=== PATIENT | male | born 1945 | race Caucasian/White ===

== ENCOUNTER 2022-07-05 06:15 | Emergency (ER) | payer OTHER, SELFPAY ==
--- NOTE | ~2022-07-05 | XR_ITS ---
EXAMINATION: XR KNEE, LEFT 2 views CLINICAL INFORMATION: Pain for one month after falling COMPARISON: None available. TECHNIQUE: Two views of the left knee. FINDINGS: No definite evidence for acute bony fracture or dislocation. Chondrocalcinosis noted. Small spurring changes, particularly at the tibial plateau and the patella. There is a calcification adjacent to the superior aspect of the medial femoral condyle which likely reflects an old posttraumatic calcification. No distinct erosive process. XR/XR knee LT 2V IMPRESSION: 1. No definite evidence for acute bony fracture or dislocation. 2. Degenerative changes.
[2022-07-05 07:35] VITALS: BP 150/57; PULSE 66; RESP 14; TEMP 36.8; O2SAT 96; BMI 25.0
--- NOTE | 2022-07-05 08:27 | ED.GENADULT ---
HPI - General Adult General Chief complaint: Extremity Problem Stated complaint: leg pain Time Seen by Provider: 07/05/22 07:59 Source: family Mode of arrival: ambulatory Limitations: no limitations History of Present Illness HPI narrative: History obtained from flight/transport nurse. Patient came from [place] he fell there 4 days ago and hurt his knee. No other injuries. He is able to walk on the knee Onset (ago): day(s) Location: left and lower extremity Severity: mild Quality: aching Pain Consistency: constant Related Data Previous Rx's Medication Instructions Recorded meloxicam 15 mg tablet 15 mg PO DAILY #10 tabs 07/05/22 Allergies Allergy/AdvReac Type Severity Reaction Status Date / Time No Known Allergies Allergy Verified 07/05/22 07:38 Review of Systems Review of Systems: Yes all other systems are reviewed and are negative Musculoskeletal: Comments: left knee PMFSH Social History Social History Advance Directives: No Advance Directives Information Provided: Yes Physical Exam ED Vital Signs: Vital Signs - 24 hr 07/05/22 07:35 Temperature 98.2 F Pulse Rate 66 Respiratory Rate 14 Blood Pressure 150/57 H Pulse Oximetry 96 Oxygen Delivery Method Room Air BMI result Body Mass Index 25.0 Const Other: elderly thin male in no acute distress Nutritional Appearance: thin Orientation/consciousness: oriented to person and patient oriented x3 Limitations: no limitations HENMT Head: Yes normal to inspection Ears: external ears normal General nose exam: Normal external nose present Mouth: Normal oral and palatal mucosa present and oropharynx normal Throat: Yes posterior oropharynx normal Eyes General: appearance normal, both eyes and all related structures Neck Neck: Yes normal visual inspection Chest Chest palpation & inspection: normal inspection of the chest Resp Auscultation: clear to auscultation bilaterally Cardio Jugular venous distension: no JVD Rate: regular rate Rhythm: regular rhythm Heart sounds: S1 normal heart sound present and S2 normal heart sound present GI Inspection: Yes normal to inspection Palpation (GI): Soft to palpation, nontender and No hepatosplenomegaly present Auscultation: normal bowel sounds General: Yes no CVA tenderness Back/Spine/Pelvis Back: no CVA tenderness Skin General skin exam: no rashes or lesions noted Neuro General: oriented to person and patient oriented x3 Cranial nerves: Yes CN's II-XII intact bilaterally Motor exam (neuro): 5/5 motor strength present throughout Extrem Other: left knee, no effusion, no laxity, FROM Psych Appearance: grossly normal Course Reevaluation(s) Reevaluation #1: patient with severe djd no effusion will dc on mobic Time: 09:20 Medical Decision Making Differential Diagnosis Differential Diagnoses: The differential diagnosis associated with the presentation includes (knee fracture, plateau fracture, patella fracture, arthritis, knee strain) Independent Interpretation I performed an independent interpretation of an: Plain X-Ray (severe djd) Discharge Plan Discharge Clinical Impression: Arthritis of knee, Knee strain Patient Disposition: Home, Self-Care Instructions: Arthritis (ED) Prescriptions: New meloxicam 15 mg tablet 15 mg PO DAILY Qty: 10 0RF Referrals: Physician,Unknown J [Primary Care Provider] - 1 week
== END 2022-07-05 09:32 | disposition home or self-care (01) ==
PROVIDERS: Emergency Provider Emergency Medicine
DX: M25.562 Pain in left knee (principal)
CPT/HCPCS: 73560; 99283

== ENCOUNTER 2024-01-21 12:24 | Emergency (ER) | payer OTHER, SELFPAY ==
--- NOTE | 2024-01-21 | ECG_ITS ---
Test Reason : ELEVATED BS Blood Pressure : / mmHG Vent. Rate : 071 BPM Atrial Rate : 071 BPM P-R Int : 138 ms QRS Dur : 122 ms QT Int : 406 ms P-R-T Axes : 038 -34 021 degrees QTc Int : 441 ms Sinus rhythm with Premature atrial complexes Left axis deviation Right bundle branch block Abnormal ECG When compared with ECG of 21-JAN-2024 13:06, No significant changes seen Referred By: Victor Hugo Quinn Electronically Signed By:AMY VALENTINO MD
--- NOTE | 2024-01-21 12:36 | ED_ITS ---
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 Quinn HPI narrative: a 78-year-old male history of dementia speaking and diabetes controlled with metformin 500 mg b.i.d. and Lantus 50 units once a day, patient found to have high blood sugar home, Son also noticed redness and white discoloration on the penis. Patient is agitated and aggressive with his family because being in the hospital which he does not like to be. Related Data Previous Rx's ?Medication ?Instructions ?Recorded meloxicam 15 mg tablet 15 mg PO DAILY #20 tabs 07/05/22 nystatin 100,000 unit/gram topical 1 appl topical QID #30 grams 01/21/24 cream Allergies Allergy/AdvReac Type Severity Reaction Status Date / Time No Known Allergies Allergy Verified 01/21/24 12:42 Review of Systems 2 Review of Systems: All other systems are reviewed and are negative Constitutional: Reports as per HPI and Reports no additional constitutional complaints Eyes: Reports as per HPI and Reports no additional eye complaints Reports system reviewed and no additional complaints, except as documented Cardiovascular: Reports as per HPI and Reports no additional cardiovascular complaints Respiratory: Reports as per HPI and Reports no additional respiratory complaints Gastrointestinal: Reports as per HPI and Reports no additional gastrointestinal complaints Genitourinary: Reports no additional female genitourinary complaints Musculoskeletal: Reports no additional musculoskeletal complaints Skin/Breast: Reports system reviewed and no additional complaints, except as docu Psychiatric: Reports no additional psychiatric complaints Endocrine: Reports no additional endocrine complaints Hematologic/Lymphatic: Reports no additional hematologic/lymphatic complaints Allergic/Immunologic: Reports no additional allergic/immunologic complaints Reports system reviewed and no additional complaints, except as documented and Reports Abnormal speech present [facility] Social History Social History Advance Directives: No Advance Directives Information Provided: No Do you have a plan to hurt others: No Plan Physical Exam ED Vital Signs: Vital Signs - 24 hr 01/21/24 12:38 01/21/24 15:32 Temperature 97.6 F 97.5 F Pulse Rate 67 87 Respiratory Rate 18 18 Blood Pressure 151/60 H 154/77 H Pulse Oximetry 97 96 Oxygen Delivery Method Room Air Room Air BMI result Body Mass Index 24.3 Vital signs have been reviewed and appear to be correct. Blood pressure elevated. Heart rate normal. Respiratory rate normal. Temperature normal. Oxygen saturation normal. Appearance: Alert. Agitated, Demented, disoriented x3 No acute distress. Head: Normal external exam. Normocephalic. Atraumatic. No Mason signs noted. No raccoon eyes noted Eyes: PERRLA. EOMI. Conjunctiva and sclera normal. Eyelids normal. ENT: TM's Normal. Pharynx normal. Uvula midline. Moist mucous membranes. No trismus noted. No drooling noted. No muffled voice noted. Neck: Normal inspection. Neck supple. FROM. No adenopathy. Thyroid Normal. No meningeal signs. No neck mass noted. CVS: Normal heart rate and rhythm. Heart sound normal. No murmurs noted. Pulses normal throughout. Respiratory: No respiratory distress. Painless inspiration. Breath sounds normal. No wheezes/rales/rhonchi noted. Chest nontender. No accessory muscle usage noted or decreased air movement noted. Abdomen: Soft and nontender. Bowel sounds normal in all 4 quadrants. No distention noted. No organomegaly noted. No visible injury noted. : Uncircumcised, redness and white cottage cheese on the foreskin. Back: No CVA tenderness. Full range of motion noted. Skin: Skin warm and dry. Normal skin color. Normal skin turgor. No rashes/lesions/lacerations noted. Extremities: No lower extremity edema. Extremities exhibit normal range of motion. Extremities nontender. Neuro: Cranial nerve exam: II-XII are grossly intact No motor deficit. No sensory deficit. Reflexes normal. Course Course Course Narrative: This is a Rapid Medical Exam performed in triage by Letty Cortez PA-C. Full HPI, ROS and PE to be performed by primary ED provider. 78-year-old male with a past medical history of dementia, DM on Metformin & Lantus, presenting to the ED c/o POC 375 today & concerned patient may have ?UTI or penile infection. Report compliance with patients home meds. Patient just arrived from [place] PE: baseline dementia, nontoxic appearing Plan: EKG, labs, UA, CXR Reevaluation(s) Reevaluation #1: 1. Hyperglycemia improvement after IV fluid and 10 units of insulin. family was instructed to increase metformin to a 1000 mg b.i.d. instead of 500 mg b.i.d. 2. Dementia with chronic behavior disturbance that required IV Ativan in the emergency department. Patient stated that when he goes home his behavior is much better. 3. Balanitis will start nystatin cream. 4. Hyponatremia likely secondary to hyperglycemia improved after fluids and insulin. Time: 16:00 Medications Administered Discontinued Medications Generic Name Dose Route Start Last Admin Trade Name Freq PRN Reason Stop Dose Admin Diphenhydramine HCl 25 mg 01/21/24 13:40 01/21/24 13:45 Diphenhydramine Hcl 50 Mg/Ml Vial IVPUSH 01/21/24 13:41 25 mg ONCE ONE Administration Sodium Chloride 1,000 mls @ 999 mls/hr 01/21/24 13:22 01/21/24 16:04 Ns IV 01/21/24 14:22 Infused .Q1H1M ONE Infusion Insulin Human Regular 10 unit 01/21/24 13:39 01/21/24 13:46 Insulin Regular, Human 100 Unit/Ml 10 Ml Vial IVPUSH 01/21/24 13:40 10 unit ONCE ONE Administration Lorazepam 2 mg 01/21/24 14:12 01/21/24 14:18 Lorazepam 2 Mg/Ml Vial IVPUSH 01/21/24 14:13 2 mg ONCE ONE Administration Lorazepam 1 mg 01/21/24 15:27 01/21/24 15:32 Lorazepam 2 Mg/Ml Vial IVPUSH 01/21/24 15:28 1 mg ONCE ONE Administration Medical Decision Making Differential Diagnosis Differential Diagnoses: The differential diagnosis associated with the presentation includes ( DKA, diabetic hyperglycemia, dementia, electrolyte disturbance, severe anemia, UTI, balanitis.) Admission/Observation Consideration of admission/observation: Escalation of care including admission/observation considered Lab Data MDM Lab Attestation statement: I reviewed the patient's lab results. 01/21/24 13:23 01/21/24 13:23 Labs: Lab Results 01/21/24 01/21/24 01/21/24 Range/Units 13:23 13:26 13:43 WBC 7.6 (4.8-10.8) X10*3/uL RBC 4.75 (4.60-5.80) X10*6/uL Hgb 14.5 (14.0-18.0) g/dl Hct 42.1 (42.0-52.0) % MCV 88.6 (80.0-98.0) fL MCH 30.5 (27.0-33.0) pg MCHC 34.4 (31.0-36.0) g/dl RDW 12.2 (11.0-16.0) % Plt Count 198 (160-400) X10*3/uL MPV 11.3 (9.4-12.4) fL Immature Gran % (Auto) 0.1 (0.0-0.4) % Neut % (Auto) 61.3 (45-73) % Lymph % (Auto) 29.0 (20-40) % [place] % (Auto) 7.7 (2-11) % Eos % (Auto) 1.4 (0-4) % Baso % (Auto) 0.5 (0-2) % Lymph # (Auto) 2.2 (1.2-4.9) X10*3/uL [place] # (Auto) 0.6 (0.1-1.2) X10*3/uL Eos # (Auto) 0.1 (0.0-0.4) X10*3/uL Baso # (Auto) 0.0 (0.0-0.2) X10*3/uL Abs Immat Gran (auto) 0.01 (0.00-0.03) X10*3/uL Absolute Neuts (auto) 4.7 (2.0-8.3) x10*3/uL Absolute Nucleated RBC 0.000 (0.0-0.012) X10*3/uL Nucleated RBC % (auto) 0.0 (0.0-0.2) /100WBC VBG pH 7.43 (7.32-7.43) VBG pCO2 39 mmHg VBG pO2 59 mmHg VBG HCO3 26 (22-26) mmol/L VBG O2 Saturation 87.0 % VBG Base Excess 2.2 mmol/L Sodium 128 L (135-145) mmol/L Potassium 4.7 (3.3-5.1) mmol/L Chloride 94 L (96-108) mmol/L Carbon Dioxide 23 (22-29) mmol/L Anion Gap 16 (12-20) BUN 15 (9-16) mg/dL Creatinine 1.57 H (0.5-1.4) mg/dL Estim Creat Clear Calc 30.7 Estimated GFR 43 POC Glucose > 600 H* (60-115) mg/dL Random Glucose 741 H* (60-115) mg/dL Calcium 9.0 (8.4-10.2) mg/dL Magnesium 1.7 (1.6-2.6) mg/dL Total Bilirubin 1.8 H (0.0-1.0) mg/dL Direct Bilirubin 0.4 (0.0-0.5) mg/dL AST 18 (5-37) U/L ALT 21 (0-40) U/L Alkaline Phosphatase 120 H (39-117) U/L Total Protein 6.0 L (6.5-8.0) g/dL Albumin 3.6 (3.5-5.0) g/dL Beta-Hydroxybutyrate 0.10 (0.02-0.27) mmol/L Urine Color Yellow Urine Appearance Clear Urine pH 5.0 (5.0-9.0) Ur Specific [place] >= 1.030 H (1.005-1.025) Urine Protein Negative (Neg-Trace) mg/dL Urine Glucose (UA) >=1000 H (Negative) mg/dL Urine Ketones Negative (Negative) mg/dL Urine Blood Negative (Negative) Urine Nitrite Negative (Negative) Ur Leukocyte Esterase Small (1+) H (Negative) Urine RBC 0-2 (0-2) /HPF Urine WBC 6-10 (0-5) /HPF Ur Squamous Epith Cells 0-2 (0-2) /HPF Urine Bacteria None Seen (None Seen) Hyaline Casts 0-2 (0-2) /LPF Urine Yeast Present Influenza Type A (PCR) NEGATIVE (Negative) Influenza Type B (PCR) NEGATIVE (Negative) RSV RNA Qual (PCR) NEGATIVE (Negative) SARS-CoV-2 RNA (RT-PCR) NEGATIVE (Negative) 01/21/24 01/21/24 01/21/24 Range/Units 14:57 15:23 15:44 WBC (4.8-10.8) X10*3/uL RBC (4.60-5.80) X10*6/uL Hgb (14.0-18.0) g/dl Hct (42.0-52.0) % MCV (80.0-98.0) fL MCH (27.0-33.0) pg MCHC (31.0-36.0) g/dl RDW (11.0-16.0) % Plt Count (160-400) X10*3/uL MPV (9.4-12.4) fL Immature Gran % (Auto) (0.0-0.4) % Neut % (Auto) (45-73) % Lymph % (Auto) (20-40) % [place] % (Auto) (2-11) % Eos % (Auto) (0-4) % Baso % (Auto) (0-2) % Lymph # (Auto) (1.2-4.9) X10*3/uL [place] # (Auto) (0.1-1.2) X10*3/uL Eos # (Auto) (0.0-0.4) X10*3/uL Baso # (Auto) (0.0-0.2) X10*3/uL Abs Immat Gran (auto) (0.00-0.03) X10*3/uL Absolute Neuts (auto) (2.0-8.3) x10*3/uL Absolute Nucleated RBC (0.0-0.012) X10*3/uL Nucleated RBC % (auto) (0.0-0.2) /100WBC VBG pH (7.32-7.43) VBG pCO2 mmHg VBG pO2 mmHg VBG HCO3 (22-26) mmol/L VBG O2 Saturation % VBG Base Excess mmol/L Sodium (135-145) mmol/L Potassium (3.3-5.1) mmol/L Chloride (96-108) mmol/L Carbon Dioxide (22-29) mmol/L Anion Gap (12-20) BUN (9-16) mg/dL Creatinine (0.5-1.4) mg/dL Estim Creat Clear Calc Estimated GFR POC Glucose 368 H* 318 H 278 H (60-115) mg/dL Random Glucose (60-115) mg/dL Calcium (8.4-10.2) mg/dL Magnesium (1.6-2.6) mg/dL Total Bilirubin (0.0-1.0) mg/dL Direct Bilirubin (0.0-0.5) mg/dL AST (5-37) U/L ALT (0-40) U/L Alkaline Phosphatase (39-117) U/L Total Protein (6.5-8.0) g/dL Albumin (3.5-5.0) g/dL Beta-Hydroxybutyrate (0.02-0.27) mmol/L Urine Color Urine Appearance Urine pH (5.0-9.0) Ur Specific [place] (1.005-1.025) Urine Protein (Neg-Trace) mg/dL Urine Glucose (UA) (Negative) mg/dL Urine Ketones (Negative) mg/dL Urine Blood (Negative) Urine Nitrite (Negative) Ur Leukocyte Esterase (Negative) Urine RBC (0-2) /HPF Urine WBC (0-5) /HPF Ur Squamous Epith Cells (0-2) /HPF Urine Bacteria (None Seen) Hyaline Casts (0-2) /LPF Urine Yeast Influenza Type A (PCR) (Negative) Influenza Type B (PCR) (Negative) RSV RNA Qual (PCR) (Negative) SARS-CoV-2 RNA (RT-PCR) (Negative) Discharge Plan Discharge Clinical Impression: Acute hyperglycemia, Balanitis Patient Disposition: Home, Self-Care Instructions: Balanitis (ED), Diabetic Hyperglycemia (ED) Prescriptions: New nystatin 100,000 unit/gram cream 1 appl topical QID Qty: 30 0RF No Action meloxicam 15 mg tablet 15 mg PO DAILY Qty: 20 0RF Print Language: Chinese
--- NOTE | 2024-01-21 12:37 | ECG_ITS ---
Test Reason : ELEVATED BS Blood Pressure : / mmHG Vent. Rate : 079 BPM Atrial Rate : 079 BPM P-R Int : 120 ms QRS Dur : 118 ms QT Int : 402 ms P-R-T Axes : 046 -39 027 degrees QTc Int : 460 ms Sinus rhythm with Premature atrial complexes Left axis deviation Right bundle branch block Abnormal ECG No previous ECGs available Referred By: Letty Cortez Electronically Signed By:AMY VALENTINO MD
[2024-01-21 12:38] VITALS: BP 151/60; PULSE 67; RESP 18; TEMP 36.4; O2SAT 97; BMI 24.3
--- NOTE | 2024-01-21 13:19 | MHC.EDTECH ---
EKGs wear took twice as DR. Quinn verbally order it, and read by him. Patient rest in his bed within call ramachandran in his reach.
[2024-01-21 13:26] LABS: MANUAL DIFF FLAG NO
[2024-01-21 13:28] LABS: Basophils Percent Auto 0.5 % (0-2); Eosinophils Absolute Auto 0.1 X10*3/uL (0.0-0.4); Eosinophils Percent Auto 1.4 % (0-4); Hematocrit 42.1 % (42.0-52.0); Hemoglobin 14.5 g/dl (14.0-18.0); Imm Gran Abs Auto 0.01 X10*3/uL (0.00-0.03); Imm Gran Pct Auto 0.1 % (0.0-0.4); Lymphocytes Absolute Auto 2.2 X10*3/uL (1.2-4.9); Mean Corpuscular HGB Conc 34.4 g/dl (31.0-36.0); Mean Corpuscular Hemoglobin 30.5 pg (27.0-33.0); Mean Corpuscular Volume 88.6 fL (80.0-98.0); Mean Platelet Volume 11.3 fL (9.4-12.4); Monocytes Absolute Auto 0.6 X10*3/uL (0.1-1.2); Monocytes Percent Auto 7.7 % (2-11); Neutrophils Absolute Auto 4.7 x10*3/uL (2.0-8.3); Neutrophils Percent Auto 61.3 % (45-73); Platelet Count 198 X10*3/uL (160-400); Red Blood Count 4.75 X10*6/uL (4.60-5.80); Red Cell Distribution Width 12.2 % (11.0-16.0); White Blood Count 7.6 X10*3/uL (4.8-10.8)
[2024-01-21 13:30] LABS: VBG Base Excess 2.2 mmol/L; VBG HCO3 26 mmol/L (22-26); VBG pCO2 39 mmHg; VBG pH 7.43 (7.32-7.43); VBG pO2 59 mmHg
[2024-01-21 13:30] LABS: Venous Blood Gas Refer to POC result
[2024-01-21 13:33] LABS: Glucose, Whole Blood > 600 mg/dL (60-115)
[2024-01-21] MEDS: diphenhydrAMINE HCL 50 MG/ML VIAL 25 MG IVPUSH (13:45)
[2024-01-21] MEDS: Insulin Regular, Human 100 UNIT/ML 10 ML VIAL 10 UNIT IVPUSH (13:46)
[2024-01-21] MEDS: 0.9 % Sodium Chloride 1,000 ML 999 ML IV (13:47)
[2024-01-21 13:51] LABS: Appearance Urine Clear; Color Urine Yellow; Glucose Urine UA >=1000 mg/dL (Negative); Leukocyte Esterase Urine Small (1+) (Negative); Nitrite Urine Negative (Negative); Specific Gravity - Urine >= 1.030 (1.005-1.025); UMIC TRIGGER UACC YES; Urine Blood Negative (Negative); Urine Ketones Negative (Negative); Urine Protein Negative (Neg-Trace)
[2024-01-21 13:52] LABS: Alanine Aminotransferase 21 U/L (0-40); Albumin Level 3.6 g/dL (3.5-5.0); Alkaline Phosphatase 120 U/L (39-117); Anion Gap 16 (12-20); Aspartate Amino Transferase 18 U/L (5-37); Bilirubin Direct 0.4 mg/dL (0.0-0.5); Bilirubin Total 1.8 mg/dL (0.0-1.0); Blood Urea Nitrogen 15 mg/dL (9-16); Carbon Dioxide 23 mmol/L (22-29); Chloride 94 mmol/L (96-108); Creatinine Clr Calc Pharmacy 30.7; Estimated Glomerular Filt Rate 43; Magnesium 1.7 mg/dL (1.6-2.6); Potassium 4.7 mmol/L (3.3-5.1); Sodium 128 mmol/L (135-145)
[2024-01-21 14:03] LABS: Glucose Random 741 mg/dL (60-115)
[2024-01-21 14:04] LABS: Bacteria Urine None Seen (None Seen); Hyaline Casts Urine 0-2 /LPF (0-2); RBC Urine 0-2 /HPF (0-2); Squamous Epithelial Cell Urine 0-2 /HPF (0-2); UACC Culture Trigger YES
[2024-01-21 14:18] LABS: Influenza A PCR NEGATIVE (Negative); Influenza B PCR NEGATIVE (Negative); Resp Syncy Virus RNA Qual PCR NEGATIVE (Negative); SARS COV2 PCR INHOUSE NEGATIVE (Negative)
[2024-01-21] MEDS: LORazepam 2 MG/ML VIAL IVPUSH (14:18)
--- NOTE | 2024-01-21 14:24 | PC.NURSE ---
POC read high x2, IV established. medicated per the MAR. patient agitated with family at the bedside, medicated with 2mg IV ativan, pending results. unable to place patient on monitor/change into hospital attire at this time d/t attempts at pulling at IV. ambulates with family w/out devices.
[2024-01-21 15:01] LABS: Glucose, Whole Blood 368 mg/dL (60-115)
--- NOTE | 2024-01-21 15:14 | PC.NURSE ---
repeat POC obtained, patient appears less agitated at this time, resting quietly in the bed. fluids continue to infuse at this time. call ramachandran within reach.
[2024-01-21 15:32] VITALS: BP 154/77; PULSE 87; RESP 18; TEMP 36.4; O2SAT 96
[2024-01-21] MEDS: LORazepam 2 MG/ML VIAL 1 MG IVPUSH (15:32)
[2024-01-21 15:48] LABS: Glucose, Whole Blood 318 mg/dL (60-115)
[2024-01-21 15:48] LABS: Glucose, Whole Blood 278 mg/dL (60-115)
[2024-01-21 16:36] LABS: Anion Gap 15 (12-20); Blood Urea Nitrogen 14 mg/dL (9-16); Calcium 8.9 mg/dL (8.4-10.2); Carbon Dioxide 20 mmol/L (22-29); Chloride 104 mmol/L (96-108); Creatinine Clr Calc Pharmacy 37.9; Estimated Glomerular Filt Rate 55; Glucose Random 309 mg/dL (60-115); Potassium 3.9 mmol/L (3.3-5.1); Sodium 135 mmol/L (135-145)
[2024-01-21 16:53] VITALS: BP 154/77; PULSE 87; RESP 18; TEMP 36.4; O2SAT 96
== END 2024-01-21 16:54 | disposition home or self-care (01) ==
PROVIDERS: Physician Assistant; Emergency Provider Emergency Medicine
DX: E11.65 Type 2 diabetes mellitus with hyperglycemia (principal); N48.1 Balanitis; R45.1 Restlessness and agitation; I45.10 Unspecified right bundle-branch block; Z03.818 Encounter for observation for suspected exposure to other biological agents ruled out; F03.90 Unspecified dementia, unspecified severity, without behavioral disturbance, psychotic disturbance, mood disturbance, and anxiety; Z79.84 Long term (current) use of oral hypoglycemic drugs; Z79.4 Long term (current) use of insulin
CPT/HCPCS: 0241U; 36415; 80048; 80076; 81001; 82010; 82803; 82947; 83735; 85025; 87086; 93005; 96361; 96374; 96375; 96376; 99284; 99285; J1200; J2060

== ENCOUNTER → 2024-01-21 12:37 | Outpatient (BNV) | payer OTHER, SELFPAY | PROVIDERS: Emergency Provider Emergency Medicine; Visit Provider Internal Medicine Cardiovascular Disease | DX: R94.31 Abnormal electrocardiogram [ECG] [EKG] (principal); I49.1 Atrial premature depolarization; I45.10 Unspecified right bundle-branch block | CPT/HCPCS: 93010 ==

== ENCOUNTER 2024-10-05 13:50 | Emergency (ER) | payer MEDICAID, SELFPAY ==
--- NOTE | ~2024-10-05 | US_ITS ---
EXAMINATION: US SCROTUM CLINICAL INFORMATION: Swelling and pain left testicle. COMPARISON: None available. TECHNIQUE: A sonogram of the scrotum was performed assessing donaldson-scale appearance and color Doppler flow. Spectral Doppler analysis of the arterial and venous flow were performed in the testes bilaterally. FINDINGS: RIGHT: Right testicle measures 3.6 x 2.2 x 2.8 cm, volume 11.9 mL. No focal testicular parenchymal lesions are visualized. Spectral Doppler analysis of the arterial and venous flow is normal in the right testis. Right epididymal head is normal in size. No varicocele is present. There is a moderate right hydrocele. Right epididymal Doppler flow is normal. LEFT: Left testicle measures 4.1 x 2.9 x 2.8 cm, volume 17.4 mL. No focal testicular parenchymal lesions are visualized. Spectral Doppler analysis of the arterial and venous flow is decreased in the left testis. There are however detectable venous and arterial waveforms present, essentially ruling out torsion. Left epididymal head is normal in size. Varicocele is present. There is a moderate left hydrocele. Left epididymal Doppler flow is normal. US/US scrotum IMPRESSION: 1. Moderate bilateral hydroceles present, with a small amount of internal floating specular debris. 2. Normal epididymis bilaterally. 3. Normal testicles bilaterally. There is mild perceived decreased flow to the left testicle although there are both arterial and venous waveforms present essentially excluding a testicular torsion. The testicles are also symmetric in echogenicity.] Based on this exam, the cause of left testicular pain is not clear. Electronically signed by: Linus Ybarra MD 10/05/2024 04:39 PM EDT
--- NOTE | ~2024-10-05 | US_ITS ---
EXAMINATION: US SCROTUM CLINICAL INFORMATION: Swelling and pain left testicle. COMPARISON: None available. TECHNIQUE: A sonogram of the scrotum was performed assessing donaldson-scale appearance and color Doppler flow. Spectral Doppler analysis of the arterial and venous flow were performed in the testes bilaterally. FINDINGS: RIGHT: Right testicle measures 3.6 x 2.2 x 2.8 cm, volume 11.9 mL. No focal testicular parenchymal lesions are visualized. Spectral Doppler analysis of the arterial and venous flow is normal in the right testis. Right epididymal head is normal in size. No varicocele is present. There is a moderate right hydrocele. Right epididymal Doppler flow is normal. LEFT: Left testicle measures 4.1 x 2.9 x 2.8 cm, volume 17.4 mL. No focal testicular parenchymal lesions are visualized. Spectral Doppler analysis of the arterial and venous flow is decreased in the left testis. There are however detectable venous and arterial waveforms present, essentially ruling out torsion. Left epididymal head is normal in size. Varicocele is present. There is a moderate left hydrocele. Left epididymal Doppler flow is normal. US/US scrotum doppler IMPRESSION: 1. Moderate bilateral hydroceles present, with a small amount of internal floating specular debris. 2. Normal epididymis bilaterally. 3. Normal testicles bilaterally. There is mild perceived decreased flow to the left testicle although there are both arterial and venous waveforms present essentially excluding a testicular torsion. The testicles are also symmetric in echogenicity.] Based on this exam, the cause of left testicular pain is not clear. Electronically signed by: Linus Ybarra MD 10/05/2024 04:39 PM EDT
[2024-10-05 14:14] VITALS: BP 116/58; PULSE 76; RESP 18; TEMP 36.9; O2SAT 97; BMI 23.2
--- NOTE | 2024-10-05 14:17 | ED_ITS ---
HPI - General Adult General Chief complaint: Urogenital-Male Stated complaint: Infection Private Area Weak Related Data Previous Rx's ?Medication ?Instructions ?Recorded meloxicam 15 mg tablet 15 mg PO DAILY #20 tabs 0 10/20 nystatin 100,000 unit/gram topical 1 appl topical QID #30 grams 01/21/24 cream Allergies Allergy/AdvReac Type Severity Reaction Status Date / Time No Known Allergies Allergy Verified 10/05/24 14:19 Physical Exam ED Vital Signs: Vital Signs - 24 hr 10/05/24 14:14 Temperature 98.5 F Pulse Rate 76 Respiratory Rate 18 Blood Pressure 116/58 L Pulse Oximetry 97 Oxygen Delivery Method Room Air BMI result Body Mass Index 23.2 Course Course Course Narrative: RME performed by Taylor Martin PA-C. Patient is a 78 year old assigned male at presenting to the emergency department with scrotal swelling and painful urination concerning for infection. Patient states he has been in the [place] and is having scrotal swelling and painful urination. Detailed physical exam and review of systems are deferred to the research chief engineer. Labs and imaging ordered. Patient placed back in the waiting room pending room availability and results. Patient left the department without completing treatment. Patient's limited physical exam performed in triage was unremarkable, not in acute distress. Medical Decision Making Lab Data 10/05/24 14:31 10/05/24 14:31 Labs: Lab Results 10/05/24 Range/Units 14:31 WBC 7.7 (4.8-10.8) X10*3/uL RBC 5.31 (4.60-5.80) X10*6/uL Hgb 15.9 (14.0-18.0) g/dl Hct 45.7 (42.0-52.0) % MCV 86.1 (80.0-98.0) fL MCH 29.9 (27.0-33.0) pg MCHC 34.8 (31.0-36.0) g/dl RDW 12.7 (11.0-16.0) % Plt Count 193 (160-400) X10*3/uL MPV 11.2 (9.4-12.4) fL Immature Gran % (Auto) 0.4 (0.0-0.4) % Neut % (Auto) 72.9 (45-73) % Lymph % (Auto) 13.6 L (20-40) % [place] % (Auto) 12.3 H (2-11) % Eos % (Auto) 0.4 (0-4) % Baso % (Auto) 0.4 (0-2) % Lymph # (Auto) 1.0 L (1.2-4.9) X10*3/uL [place] # (Auto) 0.9 (0.1-1.2) X10*3/uL Eos # (Auto) 0.0 (0.0-0.4) X10*3/uL Baso # (Auto) 0.0 (0.0-0.2) X10*3/uL Abs Immat Gran (auto) 0.03 (0.00-0.03) X10*3/uL Absolute Neuts (auto) 5.6 (2.0-8.3) x10*3/uL Absolute Nucleated RBC 0.000 (0.0-0.012) X10*3/uL Nucleated RBC % (auto) 0.0 (0.0-0.2) /100WBC ESR 12 (0-15) MM/HR Sodium 141 (135-145) mmol/L Potassium 4.0 (3.3-5.1) mmol/L Chloride 104 (96-108) mmol/L Carbon Dioxide 28 (22-29) mmol/L Anion Gap 13 (12-20) BUN 19 H (9-16) mg/dL Creatinine 1.31 (0.5-1.4) mg/dL Estim Creat Clear Calc 36.7 Estimated GFR 53 Random Glucose 118 H (60-115) mg/dL Calcium 9.6 D (8.4-10.2) mg/dL Magnesium 1.8 (1.6-2.6) mg/dL Total Bilirubin 2.5 H (0.0-1.0) mg/dL AST 27 (5-37) U/L ALT 19 (0-40) U/L Alkaline Phosphatase 108 (39-117) U/L C-Reactive Protein 0.53 H (< or = 0.50) mg/dL Total Protein 7.3 (6.5-8.0) g/dL Albumin 4.6 (3.5-5.0) g/dL Discharge Plan Discharge Clinical Impression: Acute pain in scrotum Patient Disposition: Left W/O Completing Treatment Prescriptions: No Action nystatin 100,000 unit/gram cream 1 appl topical QID Qty: 30 0RF meloxicam 15 mg tablet 15 mg PO DAILY Qty: 20 0RF
[2024-10-05 14:34] LABS: MANUAL DIFF FLAG NO
[2024-10-05 14:36] LABS: Hematocrit 45.7 % (42.0-52.0); Hemoglobin 15.9 g/dl (14.0-18.0); Imm Gran Abs Auto 0.03 X10*3/uL (0.00-0.03); Imm Gran Pct Auto 0.4 % (0.0-0.4); Lymphocytes Absolute Auto 1.0 X10*3/uL (1.2-4.9); Mean Corpuscular HGB Conc 34.8 g/dl (31.0-36.0); Mean Corpuscular Hemoglobin 29.9 pg (27.0-33.0); Mean Corpuscular Volume 86.1 fL (80.0-98.0); NRBC Abs Auto 0.000 X10*3/uL (0.0-0.012); NRBC Pct Auto 0.0 /100WBC (0.0-0.2); Platelet Count 193 X10*3/uL (160-400); Red Blood Count 5.31 X10*6/uL (4.60-5.80); White Blood Count 7.7 X10*3/uL (4.8-10.8)
[2024-10-05 14:56] LABS: Alanine Aminotransferase 19 U/L (0-40); Albumin Level 4.6 g/dL (3.5-5.0); Alkaline Phosphatase 108 U/L (39-117); Anion Gap 13 (12-20); Aspartate Amino Transferase 27 U/L (5-37); Blood Urea Nitrogen 19 mg/dL (9-16); Calcium 9.6 mg/dL (8.4-10.2); Carbon Dioxide 28 mmol/L (22-29); Chloride 104 mmol/L (96-108); Creatinine Clr Calc Pharmacy 36.7; Estimated Glomerular Filt Rate 53; Magnesium 1.8 mg/dL (1.6-2.6); Potassium 4.0 mmol/L (3.3-5.1); Sodium 141 mmol/L (135-145); Total Protein 7.3 g/dL (6.5-8.0)
== END 2024-10-05 21:09 | disposition left against medical advice (07) ==
LOC: HO.ED 21:07
PROVIDERS: Physician Assistant Medical; Emergency Provider Emergency Medicine
DX: N50.812 Left testicular pain (principal); R30.9 Painful micturition, unspecified
CPT/HCPCS: 36415; 76870; 80053; 83735; 85025; 85652; 86140; 93975; 99281; 99284

== ENCOUNTER → 2024-10-05 14:18 | Outpatient (BNV) | payer MEDICAID, SELFPAY | PROVIDERS: Visit Provider Radiology Diagnostic Radiology | DX: N43.3 Hydrocele, unspecified (principal) | CPT/HCPCS: 76870; 93975 ==

== ENCOUNTER 2024-10-22 11:39 | Outpatient (AMB) | payer MEDICARE, MEDICAID, SELFPAY ==
[2024-10-22 11:43] VITALS: BP 132/60; PULSE 88; TEMP 36.8; O2SAT 97
--- NOTE | 2024-10-22 11:43 | MHC.OFFWIV ---
Intake Vital Signs 10/22/24 11:43 Height 5 ft 3 in BP 132/60 Blood Pressure Location Lt brachial Position Sitting Pulse 88 Pulse Source Pulse Oximeter Temp 98.2 F Temp Source Oral Pulse Oximetry (%) 97 Oxygen Delivery Method Room Air Intake Visit Reasons: [employer]-rt side head cut from a fall Intake Note: Pt presents with an open wound on right eyebrow from falling today Allergies No Known Allergies Allergy (Verified 10/22/24 11:43) Do you need a note to return to daycare/school/sports/work: No HPI HPI Comments History of Present Illness Details History of Present Illness - The patient is a 78-year-old [place] speaking male presenting with his caregivers for a fall at home. - His caregivers are giving the history. - The fall occurred inside the house while the patient was attempting to climb the stairs from the basement. - The patient did not lose consciousness and was able to communicate after the fall. - The patient reports pain at the site of impact, but no other injuries were noted. - The patient has a history of dementia, which may impact his ability to follow instructions or recall events accurately. - He has a laceration above the right eye and he was bleeding. Physical Exam General: Cooperative, healthy appearing, comfortable, no acute distress and well developed Orientation: Patient oriented x3 Limitations: Dementia Head: Bruise noted on the right cheek under the eye. Face and sinus: Normal facial exam Eyes: Appearance normal, both eyes and all related structures Respiratory: Normal respiratory effort and able to speak in complete sentences. Clear to auscultation bilaterally Cardiovascular: Regular rate and rhythm. Normal S1 and S2 Skin: 2cm laceration noted open and bleeding on the right eyebrow. Deep lacertation, also a skin tear noted. Neuro: Patient oriented, has dementia and [place] speaking Extremities: Normal to inspection Patient was informed and verbally consented to the use of an ambient scribe for clinic note documentation during this visit. Review of Systems Const All systems reviewed & are unremarkable except as noted in HPI and below Physical Exam Vital Signs: Last Vital Signs Temp 98.2 F 10/22/24 11:43 Pulse 88 10/22/24 11:43 BP 132/60 10/22/24 11:43 Pulse Ox 97 10/22/24 11:43 Oxygen Delivery Method Room Air 10/22/24 11:43 Office Procedures AMB Laceration Repair Location: right eyebrow Length: 2cm Sedation: No Anesthesia: 1% lidocaine Irrigation: saline Preparation: betadine Wound exploration: none Deep closure: No Skin closure: nylon Technique: Wound closed with #8 ethilon sutures 5-0 Topical treatment: triple antibiotic Tetanus toxoid ordered: No Patient tolerated procedure: with [place] [id number] Repair 2.6-7.5cm Procedure code (CPT) selection complete Office Meds lidocaine (PF) 10 mg/mL (1 %) injection solution Performing Provider: Ofe Garcia PA-C Performing Location: [facility] [place] [facility] Administered by: Ofe Garcia PA-C on 10/22/24 13:24 Dose Route Admin Location Dispensed Lot Number Expiration Date [facility] [place]NOTE 2] Machine Lacer 2 mL Infiltration face 2 mL [id number] 02/27/25 15040-775-73 [employer] Total Dispensed Waste 2 mL 0 % Assessment & Plan Assessment & Plan (1) Eyebrow laceration: Code(s): S01.119A - Laceration without foreign body of unspecified eyelid and periocular area, initial encounter Qualifiers: Encounter type: initial encounter Laterality: right Qualified Code(s): S01.111A - Laceration without foreign body of right eyelid and periocular area, initial encounter (2) Fall: Code(s): W19.XXXA - Unspecified fall, initial encounter Qualifiers: Encounter type: initial encounter Qualified Code(s): W19.XXXA - Unspecified fall, initial encounter Plan Most likely laceration s/p fall plan - keep area clean and dry - tylenol as needed - ice to the face - have the sutures removed in 7-10 days - watch for signs of infection - advised the ER for changes in his mentation, swelling, MILLER, combative, etc - follow up with PCP Orders: Orders AMB Laceration Repair Today S01.81XA - Laceration without foreign body of other part of head, initial encounter Medications: Discontinued nystatin Discontinued Reason: Patient Completed Course 1 appl topical QID 30 grams 0RF meloxicam Discontinued Reason: Patient Completed Course 15 mg PO DAILY 20 tabs 0RF Coding Level of Care Code Est Pt Level 4 (67147) Diagnoses Laceration of right eyebrow, initial encounter S01.111A Encounter type: initial encounter Laterality: right Fall, initial encounter W19.XXXA Encounter type: initial encounter CPT Codes Office Procedure - Laceration Repair 2: [id number] Repair 2.6-7.5cm ([id number])
--- OUTSIDE RECORDS SUMMARY | 2024-10-22 13:11 | XMS_ITS | Clinical Summary ---
Author Organization [facility] Address [address] [place] [address] Phone Care Team Providers Care Radiology Physician Name Role Phone Physician, No Pcp Primary Care Provider Unavaila ble Allergies No known active allergies Medications bacitracin (bacitracin zinc) 500 unit/gram ointment Apply 1 Application topically 2 (two) times a day for 10 days. 45 g 5 10/27/19 25 Active clotrimazole (LOTRIMIN) 1 % cream Apply to affected area 2 times daily 45 g 5 10/28/19 25 Active cefuroxime (CEFTIN) 500 mg tablet Take 1 tablet (500 mg total) by mouth 2 (two) times a day for 10 days. 20 each 5 10/27/19 25 Active traZODone (DESYREL) 50 mg tablet Take 1 tablet (50 mg total) by mouth at bedtime. 30 each 5 11/16/19 25 Active Active Problems No known active problems Encounters Date Type Department Care Team Description 10/15/2024 9:13 PM EDT - 10/16/2024 3:09 AM EDT Emergency [facility] Emergency [address] [place] [address] Kenton Ortiz MD Acute cystitis without hematuria (Primary Dx); Balanitis; Controlled type 2 diabetes mellitus with hyperglycemia, with long-term current use of insulin ([facility] V24, [facility] V28) Discharge Disposition: Home or Self Care from Last 3 Months Social History Tobacco Use Types Packs/Day Years Used Date Smoking Tobacco: Never Assessed Sex and Gender Information Value Date Recorded Sex Assigned at Not on file Legal Sex Male 5:41 PM EDT Gender Identity Not on file Sexual Orientation Not on file Travel History Travel Start Travel End [place] 09/09/2024 10/15/2024 Obstetrics History Last Filed Vital Signs Vital Sign Reading Time Taken Comments Blood Pressure 119/94 10/15/2024 5:56 PM EDT Pulse 69 10/15/2024 9:00 PM EDT Temperature 36.2 C (97.1 F) 10/15/2024 9:00 PM EDT Respiratory Rate 18 10/15/2024 9:00 PM EDT Oxygen Saturation 98% 10/15/2024 9:00 PM EDT Inhaled Oxygen Concentration - - Weight 59 kg (130 lb) 10/15/2024 5:56 PM EDT Height 160 cm (5' 3 ) 10/15/2024 5:56 PM EDT Body Mass Index 23.03 10/15/2024 5:56 PM EDT Plan of Treatment Health Maintenance Due Date Last Done Comments Diabetes: Annual Foot Exam 1955 Diabetes: Annual Retina Eye Exam 1955 DTaP,Tdap,and Td Vaccines (1 - Tdap) 12/08/1963 Pneumococcal Vaccine: 50+ Ye ars (1 of 2 - PCV) 12/08/1963 Zoster Vaccines (1 of 2) 1994 RSV Immunization Adult Patie nts (1 - 1-dose 75+ series) 12/08/2019 COVID-19 Vaccine ( - 2023-2 5 season) 2023 Depression Screening 02/29/2024 Cholesterol Screening (Lipid Panel) 10/15/2024 Falls Risk Assessment 10/15/2024 Hepatitis C Screening 10/15/2024 Medicare Annual Wellness Visit 10/15/2024 Social Influencers of Health Screening 10/15/2024 Diabetes: Annual Urine Albumin-Creatinine Ratio (uACR) 10/16/2024 Diabetes: Blood Sugar Contro l Test (HGBA1C) 10/16/2024 Influenza Vaccine (#1) 2024 Diabetes: Annual GFR (Glomer ular Filtration Rate) 10/15/2025 10/15/2024 HIB Vaccines Aged Out No longer eligi ble based on patient's age to complete this topic HPV Vaccines Aged Out No longer eligi ble based on patient's age to complete this topic Hepatitis A Vaccines Aged Out No long er eligible based on patient's age to complete this topic Hepatitis B Vaccines Aged Out No long er eligible based on patient's age to complete this topic IPV Vaccines Aged Out No longer eligi ble based on patient's age to complete this topic MMR Vaccines Aged Out No longer eligi ble based on patient's age to complete this topic Meningococcal ACWY Vaccine Aged Out N o longer eligible based on patient's age to complete this topic Meningococcal B Vaccine Aged Out No l onger eligible based on patient's age to complete this topic RSV Immunization Patients Un coni 20 months Aged Out No longer eligible b ased on patient's age to complete this topic Varicella Vaccines Aged Out No longer eligible based on patient's age to complete this topic Procedures Procedure Name Priority Date/Time Associated Diagnosis Comments POCT GLUCOSE BLOOD Routine 10/16/2024 12 :59 AM EDT POCT GLUCOSE BLOOD Routine 10/15/2024 11 :33 PM EDT LACTATE, WITH REFLEX STAT 10/15/2024 11:18 PM EDT CULTURE BLOOD STAT 10/15/2024 11:18 PM EDT CULTURE BLOOD STAT 10/15/2024 11:18 PM EDT COUCH URINE CULTURE TUBE STAT 10/16/19 6:30 PM EDT URINALYSIS WITH REFLEX MICROSCOPIC AND CULTURE STAT 10/15/2024 6:30 PM EDT URINALYSIS WITH REFLEX MICROSCOPIC AND CULTURE STAT 10/15/2024 6:30 PM EDT CULTURE URINE STAT 10/15/2024 6:30 PM EDT ALKALINE PHOSPHATASE STAT Add-on 10/15/2024 6:01 PM EDT BILIRUBIN, TOTAL Add-On 10/15/2024 6:01 PM EDT ALANINE AMINOTRANSFERASE STAT Add-on 10/15/2024 6:01 PM EDT ASPARTATE AMINOTRANSFERASE STAT Add-on 10/15/2024 6:01 PM EDT CBC WITH AUTO DIFFERENTIAL STAT 10/15/2024 6:01 PM EDT MAGNESIUM STAT 10/15/2024 6:01 PM EDT BASIC METABOLIC PANEL STAT 10/15/2024 6:01 PM EDT CBC AND DIFFERENTIAL STAT 10/15/2024 6:01 PM EDT from Last 3 Months Results * (ABNORMAL) POCT Glucose, blood (10/16/2024 12:59 AM EDT) Only the most recent of2 resultswithin the time period is included. Pathologist [facility] Glucose POCT 240(H) 70 - 100 mg/dL 10/16/2024 1:00 AM EDT [facility] Blood Capillary blood specimen / Unknown 10/16/2024 12:59 AM EDT 10/16/2024 1:01 AM EDT us Kenton Ortiz MD LAB POINT OF CARE TEST DOCKED DEVICE UNSOLICITED RESULTS Final Result [facility] [address] [place] [address], [place] [phone] * (ABNORMAL) Lactate, with Reflex (10/15/2024 11:18 PM EDT) [facility] LACTIC ACID 2.3(H) 0.4 - 2.0 mmol/L LAB CHEMISTRY METHOD 10/15/2024 11:48 PM EDT [facility] Blood Venous blood specimen / Unknown Venipuncture / Unknown 10/15/2024 11:18 PM EDT 10/15/2024 11:25 PM EDT us Kenton Ortiz MD LAB BLOOD ORDERABLES Connie l Result Performing Organization Address [facility]/ZIP Co de Phone Number [facility] [address] [place] [address], [place] [phone] * Blood Culture, Peripheral #2 (10/15/2024 11:18 PM EDT) Only the most recent of2 resultswithin the time period is included. [facility] Culture, Blood No growth at 5 days 10/21/2024 12:01 AM EDT [facility] Blood Venous blood specimen / Unknown Venipuncture / Unknown 10/15/2024 11:18 PM EDT 10/15/2024 11:25 PM EDT Kenton Ortiz MD LAB MICROBIOLOGY - GENERA L ORDERABLES Final Result Performing Organization Address [facility] de Phone Number [facility] [address] [place] [address], [place] [phone] * (ABNORMAL) Urinalysis with reflex microscopic and culture (10/15/2024 6:30 PM EDT) [facility] Specific [place] Urine 1.039(H) 1.003 - 1.030 LAB URINALYSIS - AUTOMATED METHOD 10/15/2024 6:53 PM EDT [facility] pH, Urine 5.5 5.0 - 8.0 pH LAB URINALYSIS - AUTOMATED METHOD 10/15/2024 6:53 PM EDT [facility] Leukocytes, Urine Moderate(A) Negative LAB URINALYSIS - AUTOMATED METHOD 10/15/2024 6:53 PM EDT [facility] Nitrite, Urine Negative Negative LAB URINALYSIS - AUTOMATED METHOD 10/15/2024 6:53 PM EDT [facility] Protein, Urine 30(A) <=Trace mg/dL LAB URINALYSIS - AUTOMATED METHOD 10/15/2024 6:53 PM [facility] Glucose, Urine >=1000(A) Negative mg/dL LAB URINALYSIS - AUTOMATED METHOD 10/15/2024 6:53 PM [facility] Ketones, Urine Trace(A) Negative mg/dL LAB URINALYSIS - AUTOMATED METHOD 10/15/2024 6:53 PM [facility] Urobilinogen , Urine 1.0 0.2 - 1.0 mg/dL LAB URINALYSIS - AUTOMATED METHOD 10/15/2024 6:53 PM [facility] Bilirubin, Urine Negative Negative LAB URINALYSIS - AUTOMATED METHOD 10/15/2024 6:53 PM [facility] Blood, Urine Trace(A) Negative LAB URINALYSIS - AUTOMATED METHOD 10/15/2024 6:53 PM [facility] RBC, Urine 2.2 0 - 4 /HPF LAB URINALYSIS - AUTOMATED METHOD 10/15/2024 6:53 PM [facility] WBC, Urine 223.5(H) 0 - 4 /HPF LAB URINALYSIS - AUTOMATED METHOD 10/15/2024 6:53 PM [facility] Squamous Epithelial, Urine 19 0 - 60 /LPF LAB URINALYSIS - AUTOMATED METHOD 10/15/2024 6:53 PM [facility] Bacteria, Urine Moderate(A) Negative /HPF LAB URINALYSIS - AUTOMATED METHOD 10/15/2024 6:53 PM [facility] Hyaline Casts, Urine 0.4 0 - 3 /LPF LAB URINALYSIS - AUTOMATED METHOD 10/15/2024 6:53 PM [facility] Urine Urine specimen obtained by clean catch procedure / Unknown Non-blood Collection / Unknown 10/15/2024 6:30 PM EDT 10/15/2024 6:40 PM EDT Perla CHERRY LAB URINE ORDERABLES Fin al Result Performing Organization Address [facility] Co de Phone Number [facility] [address] [place] [address], [place] [phone] * Couch urine culture tube (10/15/2024 6:30 PM EDT) [facility] Extra Tube Hold for add-ons. 10/15/2024 8:01 PM EDT [facility] Comment:Auto resulted. Urine Urine specimen obtained by clean catch procedure / Unknown Non-blood Collection / Unknown 10/15/2024 6:30 PM EDT 10/15/2024 6:40 PM EDT Perla CHERRY LAB URINE ORDERABLES Fin al Result Performing Organization Address [facility] de Phone Number [facility] [address] [place] [address], [place] [phone] * Culture urine (10/15/2024 6:30 PM EDT) [facility] Culture, Urine >100,000 CFU/mL Mixed urogenital peter, no uropathogens present. Suggest repeat specimen if clinically indicated. 10/17/2024 10:33 AM EDT [facility] Urine Urine specimen obtained by clean catch procedure / Unknown Non-blood Collection / Unknown 10/15/2024 6:30 PM EDT 10/15/2024 6:53 PM EDT Perla CHERRY LAB MICROBIOLOGY - GENER AL ORDERABLES Final Result Performing Organization Address [facility] Co de Phone Number [facility] [address] [place] [address], [place] [phone] * (ABNORMAL) CBC auto differential (10/15/2024 6:01 PM EDT) [facility] WBC 7.6 4.8 - 10.8 K/mcL LAB HEMETOLOGY METHOD 10/15/2024 6:41 PM [facility] RBC 5.10 4.50 - 5.50 M/mcL LAB HEMETOLOGY METHOD 10/15/2024 6:41 PM [facility] Hemoglobin 14.5 13.5 - 17.5 g/dL LAB HEMETOLOGY METHOD 10/15/2024 6:41 PM [facility] Hematocrit 44.9 42.0 - 54.0 % LAB HEMETOLOGY METHOD 10/15/2024 6:41 PM [facility] MCV 88.2 79.0 - 98.0 FL LAB HEMETOLOGY METHOD 10/15/2024 6:41 PM [facility] MCH 28.5 27.0 - 32.0 pcg LAB HEMETOLOGY METHOD 10/15/2024 6:41 PM [facility] MCHC 32.3 32.0 - 37.0 g/dL LAB HEMETOLOGY METHOD 10/15/2024 6:41 PM [facility] RDW 12.6 11.0 - 15.0 % LAB HEMETOLOGY METHOD 10/15/2024 6:41 PM [facility] Platelets 231 130 - 400 K/[facility] LAB HEMETOLOGY METHOD 10/15/2024 6:41 PM [facility] MPV 12.0(H) 7.0 - 11.0 FL LAB HEMETOLOGY METHOD 10/15/2024 6:41 PM [facility] NRBC 0.0 <1.0 % LAB HEMETOLOGY METHOD 10/15/2024 6:41 PM [facility] NRBC Absolute 0.00 <0.10 K/[facility] LAB HEMETOLOGY METHOD 10/15/2024 6:41 PM [facility] Neutrophils Relative 69.0 % LAB HEMETOLOGY METHOD 10/15/2024 6:41 PM EDT [facility] Lymphocytes Relative 21.7 % LAB HEMETOLOGY METHOD 10/15/2024 6:41 PM T [facility] Monocytes Relative 7.8 % LAB HEMETOLOGY METHOD 10/15/2024 6:41 PM T [facility] Eosinophils Relative 0.9 % LAB HEMETOLOGY METHOD 10/15/2024 6:41 PM T [facility] Basophils Relative 0.1 % LAB HEMETOLOGY METHOD 10/15/2024 6:41 PM [facility] Immature Granulocytes Relative 0.5 % LAB HEMETOLOGY METHOD 10/15/2024 6:41 PM [facility] Neutrophils Absolute 5.24 1.50 - 7.00 K/mcL LAB HEMETOLOGY METHOD 10/15/2024 6:41 PM [facility] Lymphocytes Absolute 1.65 1.00 - 5.00 K/mcL LAB HEMETOLOGY METHOD 10/15/2024 6:41 PM [facility] Monocytes Absolute 0.59 0.20 - 1.00 K/mcL LAB HEMETOLOGY METHOD 10/15/2024 6:41 PM [facility] Eosinophils Absolute 0.07 0.00 - 0.50 K/mcL LAB HEMETOLOGY METHOD 10/15/2024 6:41 PM [facility] Basophils Absolute 0.01 0.00 - 0.20 K/mcL LAB HEMETOLOGY METHOD 10/15/2024 6:41 PM [facility] Immature Granulocytes Absolute 0.04(H) 0.00 - 0.03 K/mcL LAB HEMETOLOGY METHOD 10/15/2024 6:41 PM [facility] Blood Venous blood specimen / Unknown Venipuncture / Unknown 10/15/2024 6:01 PM EDT 10/15/2024 6:33 PM EDT Perla CHERRY LAB BLOOD ORDERABLES Fin al Result Performing Organization Address [facility]/ZIP Co de Phone Number [facility] [address] [place] [address], [place] [phone] * Alanine aminotransferase (10/15/2024 6:01 PM EDT) Pathologist [facility] ALT (SGPT) 42 10 - 60 unit/L LAB CHEMISTRY METHOD 10/15/2024 9:53 PM EDT [facility] Blood Venous blood specimen / Unknown Venipuncture / Unknown 10/15/2024 6:01 PM EDT 10/15/2024 6:33 PM EDT Kenton Ortiz MD LAB BLOOD ORDERABLES Connie l Result Performing Organization Address [facility] Co de Phone Number [facility] [address] [place] [address], [place] [phone] * Aspartate aminotransferase (10/15/2024 6:01 PM EDT) Pathologist [facility] AST (SGOT) 27 10 - 42 unit/L LAB CHEMISTRY METHOD 10/15/2024 9:53 PM EDT [facility] Blood Venous blood specimen / Unknown Venipuncture / Unknown 10/15/2024 6:01 PM EDT 10/15/2024 6:33 PM EDT Kenton Ortiz MD LAB BLOOD ORDERABLES Connie l Result Performing Organization Address City/[facility]/ZIP Co de Phone Number [facility] [address] [place] [address], [place] [phone] * (ABNORMAL) Alkaline phosphatase (10/15/2024 6:01 PM EDT) Alkaline Phosphatase 122(H) 42 - 121 unit/L LAB CHEMISTRY METHOD 10/15/2024 9:53 PM EDT [facility] Blood Venous blood specimen / Unknown Venipuncture / Unknown 10/15/2024 6:01 PM EDT 10/15/2024 6:33 PM EDT Kenton Ortiz MD LAB BLOOD ORDERABLES Connie l Result Performing Organization Address City/[facility] Co de Phone Number [facility] [address] [place] [address], [place] [phone] * (ABNORMAL) Magnesium (10/15/2024 6:01 PM EDT) [facility] Magnesium 1.8(L) 1.9 - 2.6 mg/dL LAB CHEMISTRY METHOD 10/15/2024 7:01 PM EDT [facility] Blood Venous blood specimen / Unknown Venipuncture / Unknown 10/15/2024 6:01 PM EDT 10/15/2024 6:33 PM EDT Perla CHERRY LAB BLOOD ORDERABLES Fin al Result Performing Organization Address [facility] Co de Phone Number [facility] [address] [place] [address], [place] [phone] * Bilirubin, total (10/15/2024 6:01 PM EDT) Total Bilirubin 1.3 0.0 - 1.4 mg/dL LAB CHEMISTRY METHOD 10/15/2024 9:52 PM EDT [facility] Blood Venous blood specimen / Unknown Venipuncture / Unknown 10/15/2024 6:01 PM EDT 10/15/2024 6:33 PM EDT Kenton Ortiz MD LAB BLOOD ORDERABLES Connie l Result [facility] [address] [place] [address], * (ABNORMAL) Basic metabolic panel (10/15/2024 6:01 PM EDT) Sodium 138 133 - 145 mmol/L LAB CHEMISTRY METHOD 10/15/2024 7:11 PM EDT [facility] Potassium 4.5 3.5 - 5.5 mmol/L LAB CHEMISTRY METHOD 10/15/2024 7:11 PM [facility] Chloride 105 96 - 110 mmol/L LAB CHEMISTRY METHOD 10/15/2024 7:11 PM [facility] CO2 30 21 - 32 mmol/L LAB CHEMISTRY METHOD 10/15/2024 7:11 PM [facility] Anion Gap 3 3 - 11 LAB CHEMISTRY METHOD 10/15/2024 7:11 PM [facility] Glucose 364(H) 70 - 100 mg/dL LAB CHEMISTRY METHOD 10/15/2024 7:11 PM [facility] BUN 27(H) 5 - 25 mg/dL LAB CHEMISTRY METHOD 10/15/2024 7:11 PM [facility] Creatinine 1.46(H) 0.70 - 1.30 mg/dL LAB CHEMISTRY METHOD 10/15/2024 7:11 PM [facility] eGFR 49(L) >=60 mL/min/1. 73m2 LAB CHEMISTRY METHOD 10/15/2024 7:11 PM [facility] Comment:Calculation based on the Chronic Kidney Disease Epidemiology Collaboration (CKD-EPI) equation refit without adjustment for race. BUN/Creatinine Ratio 18.5 LAB CHEMISTRY METHOD 10/15/2024 7:11 PM [facility] Calcium 9.3 8.5 - 10.5 mg/dL LAB CHEMISTRY METHOD 10/15/2024 7:11 PM [facility] Blood Venous blood specimen / Unknown Venipuncture / Unknown 10/15/2024 6:01 PM EDT 10/15/2024 6:33 PM EDT us Perla CHERRY LAB BLOOD ORDERABLES Fin al Result [facility] [address] [place] [address], [place] [phone] from Last 3 Months Insurance MEDICARE MEDICAID - [place] Care Teams Radiology Physician Relationship Specialty Start Date End Date Physician, No Pcp PCP - General 10/15/24
== END 2024-10-22 13:02 | disposition home or self-care (01) ==
PROVIDERS: Visit Provider Physician Assistant Medical
DX: S01.111A Laceration without foreign body of right eyelid and periocular area, initial encounter (principal); W19.XXXA Unspecified fall, initial encounter

== ENCOUNTER → 2024-10-22 11:39 | Outpatient (BNVA) | payer MEDICARE, MEDICAID, SELFPAY | PROVIDERS: Visit Provider Physician Assistant Medical | DX: S01.111A Laceration without foreign body of right eyelid and periocular area, initial encounter (principal); W19.XXXA Unspecified fall, initial encounter | CPT/HCPCS: 12011; 99212; J2003 ==

== ENCOUNTER 2024-11-08 12:17 | Outpatient (AMB) | payer MEDICARE, MEDICAID, SELFPAY ==
[2024-11-08 12:20] VITALS: BP 110/56; PULSE 76; TEMP 36.6; O2SAT 98; BMI 23.0
--- NOTE | 2024-11-08 12:20 | AM.OFFWIN_ITS ---
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 - He was seen here on 10/22 with a lacera tion above the right eye after a fall at home. - Family states that he has been doing w ell and he has not had any issues. - He denies bleeding, discharge, drainag e, or pain. Physical Exam General: Cooperative, healthy appearing, comfortable, no acute distress and well developed Limitations: Dementia Head: Normal to inspection. Laceration, closed with #8 sutures and healed with some crusting noted. No swelling or bleeding noted. Respiratory: Normal respiratory effort and able to speak in complete sentences. Clear to auscultation bilaterally Cardiovascular: Regular rate and rhythm. Normal S1 and S2 Procedure- Suture removal - Area cleaned with normal saline. #8 mckeon tures removed from the laceration above the right eyebrow. Procedure was well tolerated. No complications. No dehiscence noted. Bacitracin applied. Patient was informed and verbally consented to the use of an ambient scribe for clinic note documentation during this visit. Review of Systems Const All systems reviewed & are unremarkable except as noted in HPI and below Physical Exam Vital Signs: Last Vital Signs Temp 97.9 F 11/08/24 12:20 Pulse 76 11/08/24 12:20 BP 110/56 L 11/08/24 12:20 Pulse Ox 98 11/08/24 12:20 Oxygen Delivery Method Room Air 11/08/24 12:20 BMI result Body Mass Index 23.0 Assessment & Plan Assessment & Plan (1) Visit for suture removal: Code(s): Z48.02 - Encounter for removal of sutures Plan Most likely healing laceration, here for suture removal plan - bacitracin to the wound - keep area clean and dry - follow up with PCP Coding Level of Care Code Est Pt Level 3 (60093) Diagnoses Visit for suture removal Z48.02
--- OUTSIDE RECORDS SUMMARY | 2024-11-08 16:30 | XMS_ITS | Clinical Summary ---
Author Organization [facility] Address [address] [place] [address] Phone Care Team Providers Care Java Scala Developer Name Role Phone Physician, No Pcp Primary Care Provider Unavaila ble Allergies No known active allergies Medications traZODone (DESYREL) 50 mg tablet Take 1 tablet (50 mg total) by mouth at bedtime. 30 each 5 11/16/19 25 Active bacitracin (bacitracin zinc) 500 unit/gram ointment Apply 1 Application topically 2 (two) times a day for 10 days. 45 g 5 10/27/19 25 clotrimazole (LOTRIMIN) 1 % cream Apply to affected area 2 times daily 45 g 5 10/28/19 25 cefuroxime (CEFTIN) 500 mg tablet Take 1 tablet (500 mg total) by mouth 2 (two) times a day for 10 days. 20 each 5 10/27/19 25 Active Problems No known active problems Encounters Date Type Department Care Team Description 10/15/2024 9:13 PM EDT - 10/16/2024 3:09 AM EDT Emergency [facility] Emergency [address] [place] [address] Kenton Ortiz MD Acute cystitis without hematuria (Primary Dx); Balanitis; Controlled type 2 diabetes mellitus with hyperglycemia, with long-term current use of insulin ([facility] V24, [facility] V28) Discharge Disposition: Home or Self Care from Last 3 Months Social History Tobacco Use Types Packs/Day Years Used Date Smoking Tobacco: Never Assessed Sex and Gender Information Value Date Recorded Sex Assigned at Not on file Legal Sex Male 5:41 PM EDT Gender Identity Not on file Sexual Orientation Not on file Travel History Travel Start Travel End [place] 09/09/2024 10/15/2024 Obstetrics History Last Filed Vital [...] nts (1 - 1-dose 75+ series) 12/08/2019 Depression Screening 02/29/2024 Cholesterol Screening (Lipid Panel) 10/15/2024 Falls Risk Assessment 10/15/2024 Hepatitis C Screening 10/15/2024 Medicare Annual Wellness Visit 10/15/2024 Social Influencers of Health Screening 10/15/2024 Diabetes: Annual Urine Albumin-Creatinine Ratio (uACR) 10/16/2024 Diabetes: Blood Sugar Contro l Test (HGBA1C) 10/16/2024 COVID-19 Vaccine ( - 2023-2 5 season) 2024 Influenza Vaccine (#1) 2024 Diabetes: Annual GFR [...] resultswithin the time period is included. Pathologist [facility] Glucose POCT 240(H) 70 - 100 mg/dL 10/16/2024 1:00 AM EDT [facility] Blood Capillary blood specimen / Unknown 10/16/2024 12:59 AM EDT 10/16/2024 1:01 AM EDT us Kenton Ortiz MD LAB POINT OF CARE TEST DOCKED DEVICE UNSOLICITED RESULTS Final Result [facility] [address] [place] [address], [place] [phone] * (ABNORMAL) Lactate, with Reflex (10/15/2024 11:18 PM EDT) [facility] LACTIC ACID 2.3(H) 0.4 - 2.0 mmol/L LAB CHEMISTRY METHOD 10/15/2024 11:48 PM EDT [facility] Blood Venous blood specimen / Unknown Venipuncture / Unknown 10/15/2024 11:18 PM EDT 10/15/2024 11:25 PM EDT Kenton Ortiz MD LAB BLOOD ORDERABLES Connie l Result Performing Organization Address [facility]/ZIP Co de Phone Number [facility] [address] [place] [address], [place] [phone] * Blood Culture, Peripheral #2 (10/15/2024 11:18 PM EDT) Only the most recent of2 resultswithin the time period is included. [facility] Culture, Blood No growth at 5 days 10/21/2024 12:01 AM EDT [facility] Blood Venous blood specimen / Unknown Venipuncture / Unknown 10/15/2024 11:18 PM EDT 10/15/2024 11:25 PM EDT Kenton Ortiz MD LAB MICROBIOLOGY - GENERA L ORDERABLES Final Result Performing Organization Address [facility] Co de Phone Number [facility] [address] [place] [address], [place] [phone] * (ABNORMAL) Urinalysis with reflex microscopic and culture (10/15/2024 6:30 PM EDT) [facility] Specific [place] Urine 1.039(H) 1.003 - 1.030 LAB URINALYSIS - AUTOMATED METHOD 10/15/2024 6:53 PM EDT [facility] pH, Urine 5.5 5.0 - 8.0 pH LAB URINALYSIS - AUTOMATED METHOD 10/15/2024 6:53 PM EDT [facility] Leukocytes, Urine Moderate(A) Negative LAB URINALYSIS - AUTOMATED METHOD 10/15/2024 6:53 PM EDT [facility] Nitrite, Urine Negative Negative LAB URINALYSIS - AUTOMATED METHOD 10/15/2024 6:53 PM EDT [facility] Protein, Urine 30(A) <=Trace mg/dL LAB URINALYSIS - AUTOMATED METHOD 10/15/2024 6:53 PM [facility] Glucose, Urine >=1000(A) Negative mg/dL LAB URINALYSIS - AUTOMATED METHOD 10/15/2024 6:53 PM [facility] Ketones, Urine Trace(A) Negative mg/dL LAB URINALYSIS - AUTOMATED METHOD 10/15/2024 6:53 PM [facility] Urobilinogen , Urine 1.0 0.2 - 1.0 mg/dL LAB URINALYSIS - AUTOMATED METHOD 10/15/2024 6:53 PM [facility] Bilirubin, Urine Negative Negative LAB URINALYSIS - AUTOMATED METHOD 10/15/2024 6:53 PM [facility] Blood, Urine Trace(A) Negative LAB URINALYSIS - AUTOMATED METHOD 10/15/2024 6:53 PM [facility] RBC, Urine 2.2 0 - 4 /HPF LAB URINALYSIS - AUTOMATED METHOD 10/15/2024 6:53 PM [facility] WBC, Urine 223.5(H) 0 - 4 /HPF LAB URINALYSIS - AUTOMATED METHOD 10/15/2024 6:53 PM [facility] Squamous Epithelial, Urine 19 0 - 60 /LPF LAB URINALYSIS - AUTOMATED METHOD 10/15/2024 6:53 PM [facility] Bacteria, Urine Moderate(A) Negative /HPF LAB URINALYSIS - AUTOMATED METHOD 10/15/2024 6:53 PM [facility] Hyaline Casts, Urine 0.4 0 - 3 /LPF LAB URINALYSIS - AUTOMATED METHOD 10/15/2024 6:53 PM [facility] Urine Urine specimen obtained by clean catch procedure / Unknown Non-blood Collection / Unknown 10/15/2024 6:30 PM EDT 10/15/2024 6:40 PM EDT Perla CHERRY LAB URINE ORDERABLES Fin al Result Performing Organization Address [facility] Co de Phone Number [facility] [address] [place] [address], [place] [phone] * Couch urine culture tube (10/15/2024 6:30 PM EDT) Extra Tube Hold for add-ons. 10/15/2024 8:01 PM EDT [facility] Comment:Auto resulted. Urine Urine specimen obtained by clean catch procedure / Unknown Non-blood Collection / Unknown 10/15/2024 6:30 PM EDT 10/15/2024 6:40 PM EDT Perla CHERRY LAB URINE ORDERABLES Fin al Result Performing Organization Address [facility] de Phone Number [facility] [address] [place] [address], [place] [phone] * Culture urine (10/15/2024 6:30 PM EDT) Pathologist [facility] Culture, Urine >100,000 CFU/mL Mixed urogenital peter, no uropathogens present. Suggest repeat specimen if clinically indicated. 10/17/2024 10:33 AM EDT [facility] Urine Urine specimen obtained by clean catch procedure / Unknown Non-blood Collection / Unknown 10/15/2024 6:30 PM EDT 10/15/2024 6:53 PM EDT Perla CHERRY LAB MICROBIOLOGY - GENER AL ORDERABLES Final Result Performing Organization Address [facility] Co de Phone Number [facility] [address] [place] [address], [place] [phone] * (ABNORMAL) CBC auto differential (10/15/2024 6:01 PM EDT) [facility] WBC 7.6 4.8 - 10.8 K/mcL LAB HEMETOLOGY METHOD 10/15/2024 6:41 PM [facility] RBC 5.10 4.50 - 5.50 M/mcL LAB HEMETOLOGY METHOD 10/15/2024 6:41 PM [facility] Hemoglobin 14.5 13.5 - 17.5 g/dL LAB HEMETOLOGY METHOD 10/15/2024 6:41 PM [facility] Hematocrit 44.9 42.0 - 54.0 % LAB HEMETOLOGY METHOD 10/15/2024 6:41 PM [facility] MCV 88.2 79.0 - 98.0 FL LAB HEMETOLOGY METHOD 10/15/2024 6:41 PM [facility] MCH 28.5 27.0 - 32.0 pcg LAB HEMETOLOGY METHOD 10/15/2024 6:41 PM [facility] MCHC 32.3 32.0 - 37.0 g/dL LAB HEMETOLOGY METHOD 10/15/2024 6:41 PM [facility] RDW 12.6 11.0 - 15.0 % LAB HEMETOLOGY METHOD 10/15/2024 6:41 PM [facility] Platelets 231 130 - 400 K/mcL LAB HEMETOLOGY METHOD 10/15/2024 6:41 PM [facility] MPV 12.0(H) 7.0 - 11.0 FL LAB HEMETOLOGY METHOD 10/15/2024 6:41 PM [facility] NRBC 0.0 <1.0 % LAB HEMETOLOGY METHOD 10/15/2024 6:41 PM [facility] NRBC Absolute 0.00 <0.10 K/mcL LAB HEMETOLOGY METHOD 10/15/2024 6:41 PM [facility] Neutrophils Relative 69.0 % LAB HEMETOLOGY METHOD 10/15/2024 6:41 PM [facility] Lymphocytes Relative 21.7 % LAB HEMETOLOGY METHOD 10/15/2024 6:41 PM [facility] Monocytes Relative 7.8 % LAB HEMETOLOGY METHOD 10/15/2024 6:41 PM [facility] Eosinophils Relative 0.9 % LAB HEMETOLOGY METHOD 10/15/2024 6:41 PM [facility] Basophils Relative 0.1 % LAB HEMETOLOGY METHOD 10/15/2024 6:41 PM [facility] Immature Granulocytes Relative 0.5 % LAB HEMETOLOGY METHOD 10/15/2024 6:41 PM [facility] Neutrophils Absolute 5.24 1.50 - 7.00 K/mcL LAB HEMETOLOGY METHOD 10/15/2024 6:41 PM [facility] Lymphocytes Absolute 1.65 1.00 - 5.00 K/mcL LAB HEMETOLOGY METHOD 10/15/2024 6:41 PM [facility] Monocytes Absolute 0.59 0.20 - 1.00 K/mcL LAB HEMETOLOGY METHOD 10/15/2024 6:41 PM [facility] Eosinophils Absolute 0.07 0.00 - 0.50 K/mcL LAB HEMETOLOGY METHOD 10/15/2024 6:41 PM [facility] Basophils Absolute 0.01 0.00 - 0.20 K/mcL LAB HEMETOLOGY METHOD 10/15/2024 6:41 PM [facility] Immature Granulocytes Absolute 0.04(H) 0.00 - 0.03 K/mcL LAB HEMETOLOGY METHOD 10/15/2024 6:41 PM [facility] Blood Venous blood specimen / Unknown Venipuncture / Unknown 10/15/2024 6:01 PM EDT 10/15/2024 6:33 PM EDT Perla CHERRY LAB BLOOD ORDERABLES Fin al Result Performing Organization Address [facility]/ZIP Co de Phone Number [facility] [address] [place] [address], [place] [phone] * Alanine aminotransferase (10/15/2024 6:01 PM EDT) ALT (SGPT) 42 10 - 60 unit/L LAB CHEMISTRY METHOD 10/15/2024 9:53 PM EDT [facility] Blood Venous blood specimen / Unknown Venipuncture / Unknown 10/15/2024 6:01 PM EDT 10/15/2024 6:33 PM EDT Kenton Ortiz MD LAB BLOOD ORDERABLES Connie l Result Performing Organization Address [facility]/ZIP Co de Phone Number [facility] [address] [place] [address], [place] [phone] * Aspartate aminotransferase (10/15/2024 6:01 PM EDT) AST (SGOT) 27 10 - 42 unit/L LAB CHEMISTRY METHOD 10/15/2024 9:53 PM EDT [facility] Blood Venous blood specimen / Unknown Venipuncture / Unknown 10/15/2024 6:01 PM EDT 10/15/2024 6:33 PM EDT Kenton Ortiz MD LAB BLOOD ORDERABLES Connie l Result Performing Organization Address City/[facility]/ZIP Co de Phone Number [facility] [address] [place] [address], [place] [phone] * (ABNORMAL) Alkaline phosphatase (10/15/2024 6:01 PM EDT) Alkaline Phosphatase 122(H) 42 - 121 unit/L LAB CHEMISTRY METHOD 10/15/2024 9:53 PM EDT [facility] Blood Venous blood specimen / Unknown Venipuncture / Unknown 10/15/2024 6:01 PM EDT 10/15/2024 6:33 PM EDT Kenton Ortiz MD LAB BLOOD ORDERABLES Connie l Result Performing Organization Address [facility]/ZIP Co de Phone Number [facility] [address] [place] [address], [place] [phone] * (ABNORMAL) Magnesium (10/15/2024 6:01 PM EDT) Pathologist [facility] Magnesium 1.8(L) 1.9 - 2.6 mg/dL LAB CHEMISTRY METHOD 10/15/2024 7:01 PM EDT [facility] Blood Venous blood specimen / Unknown Venipuncture / Unknown 10/15/2024 6:01 PM EDT 10/15/2024 6:33 PM EDT Perla CHERRY LAB BLOOD ORDERABLES Fin al Result Performing Organization Address [facility] Co de Phone Number [facility] [address] [place] [address], [place] [phone] * Bilirubin, total (10/15/2024 6:01 PM EDT) Total Bilirubin 1.3 0.0 - 1.4 mg/dL LAB CHEMISTRY METHOD 10/15/2024 9:52 PM EDT [facility] Blood Venous blood specimen / Unknown Venipuncture / Unknown 10/15/2024 6:01 PM EDT 10/15/2024 6:33 PM EDT Kenton Ortiz MD LAB BLOOD ORDERABLES Connie l Result [facility] [address] [place] [address], * (ABNORMAL) Basic metabolic panel (10/15/2024 6:01 PM EDT) Sodium 138 133 - 145 mmol/L LAB CHEMISTRY METHOD 10/15/2024 7:11 PM EDT [facility] Potassium 4.5 3.5 - 5.5 mmol/L LAB CHEMISTRY METHOD 10/15/2024 7:11 PM [facility] Chloride 105 96 - 110 mmol/L LAB CHEMISTRY METHOD 10/15/2024 7:11 PM [facility] CO2 30 21 - 32 mmol/L LAB CHEMISTRY METHOD 10/15/2024 7:11 PM [facility] Anion Gap 3 3 - 11 LAB CHEMISTRY METHOD 10/15/2024 7:11 PM [facility] Glucose 364(H) 70 - 100 mg/dL LAB CHEMISTRY METHOD 10/15/2024 7:11 PM [facility] BUN 27(H) 5 - 25 mg/dL LAB CHEMISTRY METHOD 10/15/2024 7:11 PM [facility] Creatinine 1.46(H) 0.70 - 1.30 mg/dL LAB CHEMISTRY METHOD [facility]24 [facility] eGFR 49(L) >=60 mL/min/1. 73m2 LAB CHEMISTRY METHOD 10/15/2024 7:11 PM [facility] Comment:Calculation based on the Chronic Kidney Disease Epidemiology Collaboration (CKD-EPI) equation refit without adjustment for race. BUN/Creatinine Ratio 18.5 LAB CHEMISTRY METHOD 10/15/2024 7:11 PM [facility] Calcium 9.3 8.5 - 10.5 mg/dL LAB CHEMISTRY METHOD 10/15/2024 7:11 PM [facility] Blood Venous blood specimen / Unknown Venipuncture / Unknown 10/15/2024 6:01 PM EDT 10/15/2024 6:33 PM EDT us Perla CHERRY LAB BLOOD ORDERABLES Fin al Result [facility] ([facility] [address] [place] [address], [place] [phone] from Last 3 Months Insurance MEDICARE MEDICAID - [place] Care Teams Java Scala Developer Relationship Specialty Start Date End Date Physician, No Pcp PCP - General 10/15/24
== END 2024-11-08 13:21 | disposition home or self-care (01) ==
PROVIDERS: Visit Provider Physician Assistant Medical
DX: Z48.02 Encounter for removal of sutures (principal)

== ENCOUNTER → 2024-11-08 12:17 | Outpatient (BNVA) | payer MEDICARE, SELFPAY | PROVIDERS: Visit Provider Physician Assistant Medical | DX: Z48.02 Encounter for removal of sutures (principal) | CPT/HCPCS: 99212 ==

== ENCOUNTER 2024-11-15 06:07 | Emergency (ER) | payer MEDICARE, SELFPAY ==
[2024-11-15 06:17] LABS: Glucose, Whole Blood 54 mg/dL (60-115)
[2024-11-15 06:19] VITALS: BP 132/60; PULSE 66; RESP 18; TEMP 36.6; O2SAT 95; BMI 24.0
--- NOTE | 2024-11-15 06:26 | ECG_ITS ---
Test Reason : HYPOGLYCEMIA Blood Pressure : */* mmHG Vent. Rate : 72 BPM Atrial Rate : 72 BPM P-R Int : 124 ms QRS Dur : 116 ms QT Int : 398 ms P-R-T Axes : 58 -22 47 degrees QTcB Int : 435 ms Sinus rhythm with Premature atrial complexes Right bundle branch block Abnormal ECG When compared with ECG of 21-Jan-2024 13:09, Premature atrial complexes are now Present Referred By: Gianna Nunez Electronically Signed By: WILLA CURRAN
--- NOTE | 2024-11-15 06:33 | ED.AMS ---
HPI - Altered Mental Status General Chief Complaint: Altered Mental Status Stated Complaint: Hypoglycemia, HX Dementia Source: patient, family, EMS, old records reviewed and livestock [employer] Mode of arrival: EMS Limitations: other (dementia) History of Present Illness ED Provider: CLEMENT HPI narrative: 78 yo male with PMH of HTN, DM on lantus 50 units daily, metformin 1,000mg daily who lives at home with family. Family notes he has lost weight recently and his sugars have been much lower but no one has cut down his insulin dosing. They also note on Tuesday he had home visit and they dx him with UTI but told family they couldn't start antibiotics until they had a culture. He has not seemed to be in pain, had n/v/d, fevers. He ate really well yesterday and they gave him his usual medications. He woke up in bed with his agitated, yelling and family checked his POC it was 39. They gave him coca cola. EMS notes his blood sugar was still low and they gave D10. Recheck was 92. Here in ED blood sugar was 54. He takes his lantus around dinner time per family took the lantus at 630pm. complaint: other Onset (ago): hour(s) (1) Timing confirmed by: family member Severity: moderate Context: other Associated symptoms: denies other symptoms Treatments prior to arrival: glucose and IV fluid Related Data Home Medications ?Medication ?Instructions ?Recorded ?Confirmed donepezil 10 mg tablet 10 mg PO DAILY 10/22/24 insulin aspart U-100 100 unit/mL 50 unit subcut DAILY 10/22/24 subcutaneous cartridge losartan 50 mg tablet 50 mg PO DAILY 10/22/24 memantine 10 mg tablet (Namenda) 10 mg PO QPM 10/22/24 metformin 1,000 mg tablet 1,000 mg PO DAILY 10/22/24 Allergies Allergy/AdvReac Type Severity Reaction Status Date / Time No Known Allergies Allergy Verified 11/15/24 06:29 Review of Systems Review of Systems: ROS unable to be obtained due to dementia [facility] Past Medical History Attestation statement: The following information was validated with the patient. Source: old records reviewed Medical History Dementia Diabetes mellitus type 2, controlled, without complications Hypertension associated with chronic kidney disease due to type 2 diabetes mellitus Social History Social History (Updated 11/15/24 @ 06:46 by Gianna Nunez DO) Patient Tobacco Use Status: Tobacco use Unknown Advance Directives: No Advance Directives Information Provided: Yes Do you have a plan to hurt others: No Plan Physical Exam ED Vital Signs: Vital Signs - 24 hr 11/15/24 06:19 Temperature 97.9 F Pulse Rate 66 Respiratory Rate 18 Blood Pressure 132/60 Pulse Oximetry 95 Oxygen Delivery Method Room Air BMI result Body Mass Index 24.0 Appearance: Alert. Oriented at his baseline per family - does not know month or year but oriented to person/place. No acute distress. Eyes: Pupils equal, round and reactive to light. ENT: Pharynx normal. Neck: Normal inspection. Neck supple. CVS: Normal heart rate and rhythm. Pulses normal. Respiratory: No respiratory distress. Breath sounds normal. Abdomen: Soft and nontender no grimace to palpation. Skin: Skin warm and dry. Normal skin color. Normal skin turgor. Extremities: No lower extremity edema. Neuro: Oriented X 2. No motor deficit. No sensory deficit. Course Course Course Narrative: off D10 since 825am sugar is okay he is eating Medications Administered Generic Name Dose Route Start Last Admin Trade Name Freq PRN Reason Stop Dose Admin Dextrose 1,000 mls @ 50 mls/hr 11/15/24 07:15 11/15/24 08:24 D10 IVCONT 0 mls/hr .Q20H NAILA Infusion Discontinued Medications Generic Name Dose Route Start Last Admin Trade Name Freq PRN Reason Stop Dose Admin Magnesium Sulfate 2 gm in 50 mls @ 25 mls/hr 11/15/24 07:16 11/15/24 09:52 Magnesium Sulfate/H2o IV 11/15/24 09:15 Infused ONCE ONE Infusion Medical Decision Making Medical Decision Making MDM Narrative: 78 yo male with PMH of HTN, DM on lantus 50 units daily, metformin 1,000mg daily who lives at home with family who had episode of hypoglycemia but is responding to dextrose and food. Family notes possible recent UTI and weight loss but this has been slow. He could need his insulin cut down given recent lower blood sugars. At this time he is smiling eating and has no complaints. I am going to obtain labs, UA, EKG. Monitor blood sugar closely. Differential Diagnosis Differential Diagnoses: The differential diagnosis associated with the presentation includes MAC, too much exogenous insulin, poor PO intake, urinary pathology Admission/Observation Consideration of admission/observation: Escalation of care including admission/observation considered family is asking to leave to for PCP appointment at 1045am has been off D10 and has been doing okay family is very reliable will hold metformin today and cut down his lantus to 25 units he will need to discuss with his PCP Lab Data MDM Lab Attestation statement: I reviewed the patient's lab results. no wbc count, urine not consistent with infection mag low, kidney function normal 11/15/24 06:37 11/15/24 06:37 Labs: Lab Results 11/15/24 11/15/24 11/15/24 Range/Units 06:13 06:37 06:39 WBC 8.9 (4.8-10.8) X10*3/uL RBC 4.54 L (4.60-5.80) X10*6/uL Hgb 13.4 L (14.0-18.0) g/dl Hct 39.8 L (42.0-52.0) % MCV 87.7 (80.0-98.0) fL MCH 29.5 (27.0-33.0) pg MCHC 33.7 (31.0-36.0) g/dl RDW 13.1 (11.0-16.0) % Plt Count 224 (160-400) X10*3/uL MPV 10.1 (9.4-12.4) fL Immature Gran % (Auto) 0.2 (0.0-0.4) % Neut % (Auto) 59.8 (45-73) % Lymph % (Auto) 27.3 (20-40) % Bath % (Auto) 9.1 (2-11) % Eos % (Auto) 3.0 (0-4) % Baso % (Auto) 0.6 (0-2) % Lymph # (Auto) 2.4 (1.2-4.9) X10*3/uL Bath # (Auto) 0.8 (0.1-1.2) X10*3/uL Eos # (Auto) 0.3 (0.0-0.4) X10*3/uL Baso # (Auto) 0.1 (0.0-0.2) X10*3/uL Abs Immat Gran (auto) 0.02 (0.00-0.03) X10*3/uL Absolute Neuts (auto) 5.3 (2.0-8.3) x10*3/uL Absolute Nucleated RBC 0.000 (0.0-0.012) X10*3/uL Nucleated RBC % (auto) 0.0 (0.0-0.2) /100WBC Sodium 141 (135-145) mmol/L Potassium 3.5 (3.3-5.1) mmol/L Chloride 108 (96-108) mmol/L Carbon Dioxide 26 (22-29) mmol/L Anion Gap 11 L (12-20) BUN 26 H (9-16) mg/dL Creatinine 0.99 (0.5-1.4) mg/dL Estim Creat Clear Calc 50.6 Estimated GFR > 60 POC Glucose 54 L* (60-115) mg/dL Random Glucose 97 (60-115) mg/dL Calcium 8.3 L D (8.4-10.2) mg/dL Magnesium 1.5 L (1.6-2.6) mg/dL Total Bilirubin 0.9 (0.0-1.0) mg/dL Direct Bilirubin 0.3 (0.0-0.5) mg/dL AST 29 (5-37) U/L ALT 15 (0-40) U/L Alkaline Phosphatase 88 (39-117) U/L C-Reactive Protein < 0.04 (< or = 0.50) mg/dL Total Protein 5.8 L (6.5-8.0) g/dL Albumin 3.6 (3.5-5.0) g/dL Lipase 22 (8-78) U/L Urine Color Yellow Urine Appearance Clear Urine pH 6.0 (5.0-9.0) Ur Specific [place] 1.010 (1.005-1.025) Urine Protein Negative (Neg-Trace) mg/dL Urine Glucose (UA) Negative (Negative) mg/dL Urine Ketones Negative (Negative) mg/dL Urine Blood Negative (Negative) Urine Nitrite Negative (Negative) Ur Leukocyte Esterase Moderate (2+) H (Negative) Urine RBC 0-2 (0-2) /HPF Urine WBC 6-10 H (0-5) /HPF Ur Squamous Epith Cells 0-2 (0-2) /HPF Urine Bacteria None Seen (None Seen) Hyaline Casts 0-2 (0-2) /LPF 11/15/24 11/15/24 11/15/24 Range/Units 07:03 08:24 09:19 WBC (4.8-10.8) X10*3/uL RBC (4.60-5.80) X10*6/uL Hgb (14.0-18.0) g/dl Hct (42.0-52.0) % MCV (80.0-98.0) fL MCH (27.0-33.0) pg MCHC (31.0-36.0) g/dl RDW (11.0-16.0) % Plt Count (160-400) X10*3/uL MPV (9.4-12.4) fL Immature Gran % (Auto) (0.0-0.4) % Neut % (Auto) (45-73) % Lymph % (Auto) (20-40) % Bath % (Auto) (2-11) % Eos % (Auto) (0-4) % Baso % (Auto) (0-2) % Lymph # (Auto) (1.2-4.9) X10*3/uL Bath # (Auto) (0.1-1.2) X10*3/uL Eos # (Auto) (0.0-0.4) X10*3/uL Baso # (Auto) (0.0-0.2) X10*3/uL Abs Immat Gran (auto) (0.00-0.03) X10*3/uL Absolute Neuts (auto) (2.0-8.3) x10*3/uL Absolute Nucleated RBC (0.0-0.012) X10*3/uL Nucleated RBC % (auto) (0.0-0.2) /100WBC Sodium (135-145) mmol/L Potassium (3.3-5.1) mmol/L Chloride (96-108) mmol/L Carbon Dioxide (22-29) mmol/L Anion Gap (12-20) BUN (9-16) mg/dL Creatinine (0.5-1.4) mg/dL Estim Creat Clear Calc Estimated GFR POC Glucose 83 160 H 143 H (60-115) mg/dL Random Glucose (60-115) mg/dL Calcium (8.4-10.2) mg/dL Magnesium (1.6-2.6) mg/dL Total Bilirubin (0.0-1.0) mg/dL Direct Bilirubin (0.0-0.5) mg/dL AST (5-37) U/L ALT (0-40) U/L Alkaline Phosphatase (39-117) U/L C-Reactive Protein (< or = 0.50) mg/dL Total Protein (6.5-8.0) g/dL Albumin (3.5-5.0) g/dL Lipase (8-78) U/L Urine Color Urine Appearance Urine pH (5.0-9.0) Ur Specific [place] (1.005-1.025) Urine Protein (Neg-Trace) mg/dL Urine Glucose (UA) (Negative) mg/dL Urine Ketones (Negative) mg/dL Urine Blood (Negative) Urine Nitrite (Negative) Ur Leukocyte Esterase (Negative) Urine RBC (0-2) /HPF Urine WBC (0-5) /HPF Ur Squamous Epith Cells (0-2) /HPF Urine Bacteria (None Seen) Hyaline Casts (0-2) /LPF Independent Interpretation I performed an independent interpretation of an: EKG Interpretation: Rate: 72 Rhythm: NSR with PACs [place]: left Normal P waves. Normal KRISS. RBBB. ST T wave : no TOMAS, artifact noted qTC: 435 prior studies: no change from prior The study has been interpreted contemporaneously by me. . Independent Historian Clinical information obtained from an independent historian. History obtained from or confirmed by: EMS External Record Review External record reviewed: Inpatient record, Outpatient record and Prior outpatient labs Chronic Conditions Patient?s care impacted by: Diabetes Discharge Plan Discharge Clinical Impression: Hypoglycemia, Hypomagnesemia Patient Disposition: Home, Self-Care Instructions: Hypoglycemia in a Person with Diabetes (ED), Hypomagnesemia (ED) Additional Instructions: NO UTI ON EXAM TODAY, NORMAL WBC COUNT, NORMAL KIDNEY FUNCTION monitor blood sugars frequently - responsible adult should stay with him for 24 hours check blood sugars if any symptoms but also before meals and before bed hold metformin today would cut lantus to 25 units discuss these changes today with your primary care doctor your mag was slightly low we repleted it in the ED return for any worsening symptoms or concerns. Prescriptions: No Action losartan 50 mg tablet 50 mg PO DAILY metformin 1,000 mg tablet 1,000 mg PO DAILY insulin aspart U-100 100 unit/mL cartridge 50 unit subcut DAILY donepezil 10 mg tablet 10 mg PO DAILY memantine [Namenda] 10 mg tablet 10 mg PO QPM Print Language: Turkish
--- OUTSIDE RECORDS SUMMARY | 2024-11-15 06:41 | XMS_ITS | Encounter Summary ---
Author Organization [facility] Address [address] [place] [address] Encounters * CPT with [facility] at [facility] on 2024-11-13 { reasonForRequest : blood sugar check/UTI , patientReports : &qu ot;, denies :[ Unable to void greater than 5 hours , Erection that will not go away after 2 hours , Fall or trauma that results in urinary incontinence in the setting of pain , Fall or injury that results in incontinence in the absence of pain ,"Lower back pain either unilateral or bilateral, unable to void, painful urination -hematuria ], chiefComplaints : Confusion, Urinary Symptoms , pmh : DiabetesMellitus Type 2, Dementia (e.g., Alzheimer's Disease), Hypertension, Osteoarthritis, Hypothyroidism, Stroke, Chronic Kidney Disease , allergies : No Known Drug Allergies ,&quo t;otherAllergies : , painAssessment : , visitOutcome : , additionalComments : 78 y.o male complains of Confusion, Urinary Sympt oms\n\nPatients [facility] calling in to place a referral\nPatient with UTI about a month ago and family concerned he may have another one.\nPatient with increased confusion, and agitation last night\nFamily reports blood sugar 2 nights ago was 49, last night it was 400s, during intake it was 272\nPer VNAhe takes Lantus 50 units and glipizide\nPatient did tolerate a little bit of breakfast this morning\nFamily notes urinary frequency and urgency, darker \ thicker\ urine and he does endorseoccasional kidney pain\nThey denies any odor or hematuria, no fever/chills, no nausea or vomiting\nThey would like him evaluated for a UTI.\n\nI provided information on the mobile health provider response time and advised the patient and/or caregiver to monitor reported signs and symptoms. I discussed the warning signs of when to seek emergency care. } Dispatched to the call address for the male with possible UTI. Pts family advises Pt has Hx of dementia and is confused at baseline but the last couple of days he has been acting outside of his norm.He has been hallucinating and waving his hands around, they also noticed his urine to be dark and cloudy. Pt had a UTI last month but family is not aware of which abx he was placed on but it did workfor him. Pt was found sitting on living room couch, CAOx1, airway open and patent, breathing non labored, able to speak in full sentences, -JVD, -HEENT, skin PWD with good turgor, mucous membranes pink and moist, pupils PERRL, lungs CTA, abd soft non tender/distended, -edema/swelling, afebrile, +CMSx4, UA (+) UTI Pt was assessed. UA conducted, results uploaded to Pts portal. Sample obtained for lab. C consulted. POC Blood glucose check. Pt given 500mg PO Keflex after confirming medication rights. Script called into preferred pharmacy. Red flags discussed. ALL times are approx. ORAL_MEDICATION, EKG, POC_BLOODWORK, GLUCOSE, URINE_DIPSTICK, CULTURE_URINE Written by [facility] on 2024-11-13
--- OUTSIDE RECORDS SUMMARY | 2024-11-15 06:41 | XMS_ITS | Clinical Summary ---
Author Organization [facility] Address [address] [place] [address] Phone Care Team Providers Care Professor Of Environmental Studies Name Role Phone Physician, No Pcp Primary Care Provider Unavaila ble Allergies No known active allergies Medications traZODone (DESYREL) 50 mg tablet Take 1 tablet (50 mg total) by mouth at bedtime. 30 each 5 Active bacitracin (bacitracin zinc) 500 unit/gram ointment [...] EDT - 10/16/2024 3:09 AM EDT Emergency [facility] Emergency [address] [place] [address] Kenton Ortiz MD Acute cystitis without hematuria (Primary Dx); Balanitis; Controlled type 2 diabetes mellitus with hyperglycemia, with long-term current use of insulin ([facility] V24, [facility] V28) Discharge Disposition: Home or Self Care from Last 3 Months Social History Tobacco Use Types Packs/Day Years Used Date Smoking Tobacco: Never Assessed Sex and Gender Information Value Date Recorded Sex Assigned at Not on file Legal Sex Male 5:41 PM EDT Gender Identity Not on file Sexual Orientation Not on file Travel History Travel Start Travel End [place] 09/09/2024 10/15/2024 Obstetrics History Last Filed Vital [...] Contro l Test (HGBA1C) 10/16/2024 COVID-19 Vaccine (1 - 2023-2 5 season) 2024 Influenza Vaccine [...] EDT COUCH URINE CULTURE TUBE STAT 10/16/19 25 6:30 PM EDT URINALYSIS WITH REFLEX MICROSCOPIC [...] of2 resultswithin the time period is included. [facility] Glucose POCT 240(H) 70 - 100 mg/dL 10/16/2024 1:00 AM EDT [facility] Blood Capillary blood specimen / Unknown 10/16/2024 12:59 AM EDT 10/16/2024 1:01 AM EDT us Kenton Ortiz MD LAB POINT OF CARE TEST DOCKED DEVICE UNSOLICITED RESULTS Final Result [facility] [address] [place] [address], [place] [phone] * (ABNORMAL) Lactate, with Reflex (10/15/2024 11:18 PM EDT) [facility] LACTIC ACID 2.3(H) 0.4 - 2.0 mmol/L LAB CHEMISTRY METHOD 10/15/2024 11:48 PM EDT [facility] Blood Venous blood specimen / Unknown Venipuncture / Unknown 10/15/2024 11:18 PM EDT 10/15/2024 11:25 PM EDT us Kenton Ortiz MD LAB BLOOD ORDERABLES Connie l Result Performing Organization Address [facility]/ZIP Co de Phone Number [facility] [address] [place] [address], [place] [phone] * Blood Culture, Peripheral #2 (10/15/2024 11:18 PM EDT) Only the most recent of2 resultswithin the time period is included. [facility] Culture, Blood No growth at 5 days 10/21/2024 12:01 AM EDT [facility] Blood Venous blood specimen / Unknown Venipuncture / Unknown 10/15/2024 11:18 PM EDT 10/15/2024 11:25 PM EDT us Kenton Ortiz MD LAB MICROBIOLOGY - GENERA L ORDERABLES Final Result Performing Organization Address [facility] de Phone Number [facility] [address] [place] [address], [place] [phone] * (ABNORMAL) Urinalysis with reflex microscopic and culture (10/15/2024 6:30 PM EDT) [facility] Specific Guild Urine 1.039(H) 1.003 - 1.030 LAB URINALYSIS - AUTOMATED METHOD 10/15/2024 6:53 PM EDT [facility] pH, Urine 5.5 5.0 - 8.0 pH LAB URINALYSIS - AUTOMATED METHOD 10/15/2024 6:53 PM EDT [facility] Leukocytes, Urine Moderate(A) Negative LAB URINALYSIS - AUTOMATED METHOD 10/15/2024 6:53 PM EDT [facility] Nitrite, Urine Negative Negative LAB URINALYSIS - AUTOMATED METHOD 10/15/2024 6:53 PM EDT [facility] Protein, Urine 30(A) <=Trace mg/dL LAB URINALYSIS - AUTOMATED METHOD 10/15/2024 6:53 PM [facility] Glucose, Urine >=1000(A) Negative mg/dL LAB URINALYSIS - AUTOMATED METHOD 10/15/2024 6:53 PM [facility] Ketones, Urine Trace(A) Negative mg/dL LAB URINALYSIS - AUTOMATED METHOD 10/15/2024 6:53 PM [facility] Urobilinogen , Urine 1.0 0.2 - 1.0 mg/dL LAB URINALYSIS - AUTOMATED METHOD 10/15/2024 6:53 PM [facility] Bilirubin, Urine Negative Negative LAB URINALYSIS - AUTOMATED METHOD 10/15/2024 6:53 PM [facility] Blood, Urine Trace(A) Negative LAB URINALYSIS - AUTOMATED METHOD 10/15/2024 6:53 PM [facility] RBC, Urine 2.2 0 - 4 /HPF LAB URINALYSIS - AUTOMATED METHOD 10/15/2024 6:53 PM [facility] WBC, Urine 223.5(H) 0 - 4 /HPF LAB URINALYSIS - AUTOMATED METHOD 10/15/2024 6:53 PM [facility] Squamous Epithelial, Urine 19 0 - 60 /LPF LAB URINALYSIS - AUTOMATED METHOD 10/15/2024 6:53 PM [facility] Bacteria, Urine Moderate(A) Negative /HPF LAB URINALYSIS - AUTOMATED METHOD 10/15/2024 6:53 PM [facility] Hyaline Casts, Urine 0.4 0 - 3 /LPF LAB URINALYSIS - AUTOMATED METHOD 10/15/2024 6:53 PM [facility] Urine Urine specimen obtained by clean catch procedure / Unknown Non-blood Collection / Unknown 10/15/2024 6:30 PM EDT 10/15/2024 6:40 PM EDT Perla CHERRY LAB URINE ORDERABLES Fin al Result Performing Organization Address [facility]/ZIP Co de Phone Number [facility] [address] [place] [address], [place] [phone] * Couch urine culture tube (10/15/2024 6:30 PM EDT) Pathologist [facility] Extra Tube Hold for add-ons. 10/15/2024 8:01 PM EDT [facility] Comment:Auto resulted. Urine Urine specimen obtained by clean catch procedure / Unknown Non-blood Collection / Unknown 10/15/2024 6:30 PM EDT 10/15/2024 6:40 PM EDT Perla CHERRY LAB URINE ORDERABLES Fin al Result Performing Organization Address [facility] de Phone Number [facility] [address] [place] [address], [place] [phone] * Culture urine (10/15/2024 6:30 PM EDT) Pathologist [facility] Culture, Urine >100,000 CFU/mL Mixed urogenital peter, no uropathogens present. Suggest repeat specimen if clinically indicated. 10/17/2024 10:33 AM EDT [facility] Urine Urine specimen obtained by clean catch procedure / Unknown Non-blood Collection / Unknown 10/15/2024 6:30 PM EDT 10/15/2024 6:53 PM EDT Perla CHERRY LAB MICROBIOLOGY - GENER AL ORDERABLES Final Result Performing Organization Address [facility] Co de Phone Number [facility] [address] [place] [address], [place] [phone] * (ABNORMAL) CBC auto differential (10/15/2024 6:01 PM EDT) Pathologist [facility] WBC 7.6 4.8 - 10.8 K/mcL LAB HEMETOLOGY METHOD 10/15/2024 6:41 PM [facility] RBC 5.10 4.50 - 5.50 M/mcL LAB HEMETOLOGY METHOD 10/15/2024 6:41 PM [facility] Hemoglobin 14.5 13.5 - 17.5 g/dL LAB HEMETOLOGY METHOD 10/15/2024 6:41 PM [facility] Hematocrit 44.9 42.0 - 54.0 % LAB HEMETOLOGY METHOD 10/15/2024 6:41 PM [facility] MCV 88.2 79.0 - 98.0 FL LAB HEMETOLOGY METHOD 10/15/2024 6:41 PM [facility] MCH 28.5 27.0 - 32.0 pcg LAB HEMETOLOGY METHOD 10/15/2024 6:41 PM [facility] MCHC 32.3 32.0 - 37.0 g/dL LAB HEMETOLOGY METHOD 10/15/2024 6:41 PM [facility] RDW 12.6 11.0 - 15.0 % LAB HEMETOLOGY METHOD 10/15/2024 6:41 PM [facility] Platelets 231 130 - 400 K/mcL LAB HEMETOLOGY METHOD 10/15/2024 6:41 PM [facility] MPV 12.0(H) 7.0 - 11.0 FL LAB HEMETOLOGY METHOD 10/15/2024 6:41 PM [facility] NRBC 0.0 <1.0 % LAB HEMETOLOGY METHOD 10/15/2024 6:41 PM [facility] NRBC Absolute 0.00 <0.10 K/mcL LAB HEMETOLOGY METHOD 10/15/2024 6:41 PM [facility] Neutrophils Relative 69.0 % LAB HEMETOLOGY METHOD 10/15/2024 6:41 PM [facility] Lymphocytes Relative 21.7 % LAB HEMETOLOGY METHOD 10/15/2024 6:41 PM [facility] Monocytes Relative 7.8 % LAB HEMETOLOGY METHOD 10/15/2024 6:41 PM [facility] Eosinophils Relative 0.9 % LAB HEMETOLOGY METHOD 10/15/2024 6:41 PM [facility] Basophils Relative 0.1 % LAB HEMETOLOGY METHOD 10/15/2024 6:41 PM [facility] Immature Granulocytes Relative 0.5 % LAB HEMETOLOGY METHOD 10/15/2024 6:41 PM [facility] Neutrophils Absolute 5.24 1.50 - 7.00 K/mcL LAB HEMETOLOGY METHOD 10/15/2024 6:41 PM [facility] Lymphocytes Absolute 1.65 1.00 - 5.00 K/mcL LAB HEMETOLOGY METHOD 10/15/2024 6:41 PM [facility] Monocytes Absolute 0.59 0.20 - 1.00 K/mcL LAB HEMETOLOGY METHOD 10/15/2024 6:41 PM [facility] Eosinophils Absolute 0.07 0.00 - 0.50 K/mcL LAB HEMETOLOGY METHOD 10/15/2024 6:41 PM [facility] Basophils Absolute 0.01 0.00 - 0.20 K/mcL LAB HEMETOLOGY METHOD 10/15/2024 6:41 PM [facility] Immature Granulocytes Absolute 0.04(H) 0.00 - 0.03 K/mcL LAB HEMETOLOGY METHOD 10/15/2024 6:41 PM [facility] Blood Venous blood specimen / Unknown Venipuncture / Unknown 10/15/2024 6:01 PM EDT 10/15/2024 6:33 PM EDT Perla CHERRY LAB BLOOD ORDERABLES Fin al Result Performing Organization Address [facility]/ZIP Co de Phone Number [facility] [address] [place] [address], [place] [phone] * Alanine aminotransferase (10/15/2024 6:01 PM EDT) [facility] ALT (SGPT) 42 10 - 60 unit/L LAB CHEMISTRY METHOD 10/15/2024 9:53 PM EDT [facility] Blood Venous blood specimen / Unknown Venipuncture / Unknown 10/15/2024 6:01 PM EDT 10/15/2024 6:33 PM EDT Kenton Ortiz MD LAB BLOOD ORDERABLES Connie l Result Performing Organization Address [facility]/ZIP Co de Phone Number [facility] [address] [place] [address], [place] [phone] * Aspartate aminotransferase (10/15/2024 6:01 PM EDT) [facility] AST (SGOT) 27 10 - 42 unit/L LAB CHEMISTRY METHOD 10/15/2024 9:53 PM EDT [facility] Blood Venous blood specimen / Unknown Venipuncture / Unknown 10/15/2024 6:01 PM EDT 10/15/2024 6:33 PM EDT Kenton Ortiz MD LAB BLOOD ORDERABLES Connie l Result Performing Organization Address City/[facility]/ZIP Co de Phone Number [facility] [address] [place] [address], [place] [phone] * (ABNORMAL) Alkaline phosphatase (10/15/2024 6:01 PM EDT) Alkaline Phosphatase 122(H) 42 - 121 unit/L LAB CHEMISTRY METHOD 10/15/2024 9:53 PM EDT [facility] Blood Venous blood specimen / Unknown Venipuncture / Unknown 10/15/2024 6:01 PM EDT 10/15/2024 6:33 PM EDT Kenton Ortiz MD LAB BLOOD ORDERABLES Connie l Result Performing Organization Address [facility]/ZIP Co de Phone Number [facility] [address] [place] [address], [place] [phone] * (ABNORMAL) Magnesium (10/15/2024 6:01 PM EDT) [facility] Magnesium 1.8(L) 1.9 - 2.6 mg/dL LAB CHEMISTRY METHOD 10/15/2024 7:01 PM EDT [facility] Blood Venous blood specimen / Unknown Venipuncture / Unknown 10/15/2024 6:01 PM EDT 10/15/2024 6:33 PM EDT Perla CHERRY LAB BLOOD ORDERABLES Fin al Result Performing Organization Address [facility] de Phone Number [facility] [address] [place] [address], [place] [phone] * Bilirubin, total (10/15/2024 6:01 PM EDT) Pathologist [facility] Total Bilirubin 1.3 0.0 - 1.4 mg/dL LAB CHEMISTRY METHOD 10/15/2024 9:52 PM EDT [facility] Blood Venous blood specimen / Unknown Venipuncture / Unknown 10/15/2024 6:01 PM EDT 10/15/2024 6:33 PM EDT Kenton Ortiz MD LAB BLOOD ORDERABLES Connie l Result Performing Organization Address City/[facility]/ZIP Co de Phone Number [facility] [address] [place] [address], * (ABNORMAL) Basic metabolic panel (10/15/2024 6:01 PM EDT) Sodium 138 133 - 145 mmol/L LAB CHEMISTRY METHOD [facility]2024 [facility] Potassium 4.5 3.5 - 5.5 mmol/L LAB CHEMISTRY METHOD 10/15/2024 7:11 PM [facility] Chloride 105 96 - 110 mmol/L LAB CHEMISTRY METHOD 10/15/2024 7:11 PM [facility] CO2 30 21 - 32 mmol/L LAB CHEMISTRY METHOD 10/15/2024 7:11 PM [facility] Anion Gap 3 3 - 11 LAB CHEMISTRY METHOD 10/15/2024 7:11 PM [facility] Glucose 364(H) 70 - 100 mg/dL LAB CHEMISTRY METHOD 10/15/2024 7:11 PM [facility] BUN 27(H) 5 - 25 mg/dL LAB CHEMISTRY METHOD 10/15/2024 7:11 PM [facility] Creatinine 1.46(H) 0.70 - 1.30 mg/dL LAB CHEMISTRY METHOD 10/15/2024 7:11 PM [facility] eGFR 49(L) >=60 mL/min/1. 73m2 LAB CHEMISTRY METHOD 10/15/2024 7:11 PM [facility] Comment:Calculation based on the Chronic Kidney Disease Epidemiology Collaboration (CKD-EPI) equation refit without adjustment for race. BUN/Creatinine Ratio 18.5 LAB CHEMISTRY METHOD 10/15/2024 7:11 PM [facility] Calcium 9.3 8.5 - 10.5 mg/dL LAB CHEMISTRY METHOD 10/15/2024 7:11 PM [facility] Blood Venous blood specimen / Unknown Venipuncture / Unknown 10/15/2024 6:01 PM EDT 10/15/2024 6:33 PM EDT Perla CHERRY LAB BLOOD ORDERABLES Fin al Result [facility] [address] [place] [address], [place] [phone] from Last 3 Months Insurance MEDICARE MEDICAID - [place] Care Teams Professor Of Environmental Studies Relationship Specialty Start Date End Date Physician, No Pcp PCP - General 10/15/24
--- OUTSIDE RECORDS SUMMARY | 2024-11-15 06:41 | XMS_ITS | Continuity of Care Document ---
Author Name [facility], Medical Address [address] [place] [id number] Organization Unknown Address [address] [place] [address] Medications No known medications Problems No known problems
[2024-11-15 06:48] LABS: MANUAL DIFF FLAG NO
[2024-11-15 06:50] LABS: Hematocrit 39.8 % (42.0-52.0); Hemoglobin 13.4 g/dl (14.0-18.0); Imm Gran Abs Auto 0.02 X10*3/uL (0.00-0.03); Imm Gran Pct Auto 0.2 % (0.0-0.4); Lymphocytes Absolute Auto 2.4 X10*3/uL (1.2-4.9); Mean Corpuscular HGB Conc 33.7 g/dl (31.0-36.0); Mean Corpuscular Hemoglobin 29.5 pg (27.0-33.0); Mean Corpuscular Volume 87.7 fL (80.0-98.0); NRBC Abs Auto 0.000 X10*3/uL (0.0-0.012); NRBC Pct Auto 0.0 /100WBC (0.0-0.2); Platelet Count 224 X10*3/uL (160-400); Red Blood Count 4.54 X10*6/uL (4.60-5.80); White Blood Count 8.9 X10*3/uL (4.8-10.8)
[2024-11-15 07:06] LABS: Glucose, Whole Blood 83 mg/dL (60-115)
[2024-11-15 07:09] LABS: Alanine Aminotransferase 15 U/L (0-40); Albumin Level 3.6 g/dL (3.5-5.0); Alkaline Phosphatase 88 U/L (39-117); Anion Gap 11 (12-20); Aspartate Amino Transferase 29 U/L (5-37); Blood Urea Nitrogen 26 mg/dL (9-16); Calcium 8.3 mg/dL (8.4-10.2); Carbon Dioxide 26 mmol/L (22-29); Chloride 108 mmol/L (96-108); Creatinine Clr Calc Pharmacy 50.6; Estimated Glomerular Filt Rate > 60; Lipase 22 U/L (8-78); Magnesium 1.5 mg/dL (1.6-2.6); Potassium 3.5 mmol/L (3.3-5.1); Sodium 141 mmol/L (135-145); Total Protein 5.8 g/dL (6.5-8.0)
[2024-11-15 07:09] LABS: Appearance Urine Clear; Glucose Urine UA Negative (Negative); PH 6.0 (5.0-9.0); Specific Gravity - Urine 1.010 (1.005-1.025); UMIC TRIGGER UACC YES
[2024-11-15 07:14] LABS: UACC Culture Trigger YES
[2024-11-15] MEDS: Dextrose 10 % 1,000 ML 50 ML IVCONT (07:23)
[2024-11-15] MEDS: Magnesium Sulfate/H2O 2 GM/50 ML PIGGYBACK IV (07:29)
[2024-11-15 08:27] LABS: Glucose, Whole Blood 160 mg/dL (60-115)
[2024-11-15 09:23] LABS: Glucose, Whole Blood 143 mg/dL (60-115)
--- NOTE | 2024-11-15 10:14 | PC.NURSE ---
Patient has an appointment at [address] [place] [address] at 1045am. Its his first appointment with PCP the family would like to take him. Dr. Nunez notified. Per Dr. Nunez we watch til 1030 recheck sugar then depending on blood sugar he will get discharged. Family aware.
[2024-11-15 10:28] LABS: Glucose, Whole Blood 110 mg/dL (60-115)
[2024-11-15 10:35] VITALS: BP 125/76; PULSE 72; RESP 16; TEMP 36.9; O2SAT 94
== END 2024-11-15 10:36 | disposition home or self-care (01) ==
PROVIDERS: Emergency Provider Emergency Medicine
DX: E11.649 Type 2 diabetes mellitus with hypoglycemia without coma (principal); I10 Essential (primary) hypertension; F03.90 Unspecified dementia, unspecified severity, without behavioral disturbance, psychotic disturbance, mood disturbance, and anxiety; Z79.899 Other long term (current) drug therapy; Z79.4 Long term (current) use of insulin
CPT/HCPCS: 36415; 80048; 80076; 81001; 81003; 82947; 83690; 83735; 85025; 86140; 87086; 87186; 93005; 96361; 96374; 99284; 99285; J3475

== ENCOUNTER → 2024-11-15 06:26 | Outpatient (BNV) | payer MEDICARE, SELFPAY | PROVIDERS: Emergency Provider Emergency Medicine; Visit Provider Internal Medicine | DX: I49.1 Atrial premature depolarization (principal); I45.10 Unspecified right bundle-branch block | CPT/HCPCS: 93010 ==

== ENCOUNTER 2024-11-19 08:25 | Outpatient (REF) | payer MEDICARE, SELFPAY ==
[2024-11-19 08:57] LABS: MANUAL DIFF FLAG NO
[2024-11-19 09:38] LABS: Hematocrit 39.5 % (42.0-52.0); Hemoglobin 13.4 g/dl (14.0-18.0); Imm Gran Abs Auto 0.02 X10*3/uL (0.00-0.03); Imm Gran Pct Auto 0.3 % (0.0-0.4); Lymphocytes Absolute Auto 2.2 X10*3/uL (1.2-4.9); Mean Corpuscular HGB Conc 33.9 g/dl (31.0-36.0); Mean Corpuscular Hemoglobin 29.8 pg (27.0-33.0); Mean Corpuscular Volume 88.0 fL (80.0-98.0); NRBC Abs Auto 0.000 X10*3/uL (0.0-0.012); NRBC Pct Auto 0.0 /100WBC (0.0-0.2); Platelet Count 204 X10*3/uL (160-400); Red Blood Count 4.49 X10*6/uL (4.60-5.80); White Blood Count 7.8 X10*3/uL (4.8-10.8)
--- OUTSIDE RECORDS SUMMARY | 2024-11-19 09:42 | XMS_ITS | Clinical Summary ---
Author Organization [facility] Address [address] [place] [address] Phone Care Team Providers Care Instructor Dramatic Arts Name Role Phone Physician, No Pcp Primary [...] EDT - 10/16/2024 3:09 AM EDT Emergency [facility] Emergency [address] [place] [address] Kenton Ortiz MD Acute cystitis without hematuria (Primary Dx); Balanitis; Controlled type 2 diabetes mellitus with hyperglycemia, with long-term current use of insulin ([facility] V24, [facility] V28) Discharge Disposition: Home or Self Care from Last 3 Months Social History Tobacco Use Types Packs/Day Years Used Date Smoking Tobacco: Never Assessed Sex and Gender Information Value Date Recorded Sex Assigned at Not on file Legal Sex Male 5:41 PM EDT Gender Identity Not on file Sexual Orientation Not on file Obstetrics History Last Filed Vital Signs Vital [...] Contro l Test (HGBA1C) 10/16/2024 COVID-19 Vaccine (2023-2 5 season) 2024 Influenza Vaccine (#1) 2024 [...] of2 resultswithin the time period is included. Glucose POCT 240(H) 70 - 100 mg/dL 10/16/2024 1:00 AM EDT [facility] Blood Capillary blood specimen / Unknown 10/16/2024 12:59 AM EDT 10/16/2024 1:01 AM EDT us Kenton Ortiz MD LAB POINT OF CARE TEST DOCKED DEVICE UNSOLICITED RESULTS Final Result [facility] [address] [place] [address], [place] [phone] * (ABNORMAL) Lactate, with Reflex (10/15/2024 11:18 PM EDT) LACTIC ACID 2.3(H) 0.4 - 2.0 mmol/L LAB CHEMISTRY METHOD 10/15/2024 11:48 PM EDT [facility] Blood Venous blood specimen / Unknown Venipuncture / Unknown 10/15/2024 11:18 PM EDT 10/15/2024 11:25 PM EDT us Kenton Ortiz MD LAB BLOOD ORDERABLES Connie l Result Performing Organization Address [facility]/ZIP Co de Phone Number [facility] [address] [place] [address], [place] [phone] * Blood Culture, Peripheral #2 (10/15/2024 11:18 PM EDT) Only the most recent of2 resultswithin the time period is included. [facility] Culture, Blood No growth at 5 days 10/21/2024 12:01 AM EDT [facility] Blood Venous blood specimen / Unknown Venipuncture / Unknown 10/15/2024 11:18 PM EDT 10/15/2024 11:25 PM EDT us Kenton Ortiz MD LAB MICROBIOLOGY - GENERA L ORDERABLES Final Result Performing Organization Address [facility] de Phone Number [facility] [address] [place] [address], [place] [phone] * (ABNORMAL) Urinalysis with reflex microscopic and culture (10/15/2024 6:30 PM EDT) [facility] Specific [place] Urine 1.039(H) 1.003 - 1.030 LAB URINALYSIS - AUTOMATED METHOD 10/15/2024 6:53 PM EDT [facility] pH, Urine 5.5 5.0 - 8.0 pH LAB URINALYSIS - AUTOMATED METHOD 10/15/2024 6:53 PM EDT [facility] Leukocytes, Urine Moderate(A) Negative LAB URINALYSIS - AUTOMATED METHOD 10/15/2024 6:53 PM EDT [facility] Nitrite, Urine Negative Negative LAB URINALYSIS - AUTOMATED METHOD 10/15/2024 6:53 PM EDT [facility] Protein, Urine 30(A) <=Trace mg/dL LAB URINALYSIS - AUTOMATED METHOD 10/15/2024 6:53 PM [facility] Glucose, Urine >=1000(A) Negative mg/dL LAB URINALYSIS - AUTOMATED METHOD 10/15/2024 6:53 PM [facility] Ketones, Urine Trace(A) Negative mg/dL LAB URINALYSIS - AUTOMATED METHOD 10/15/2024 6:53 PM [facility] Urobilinogen , Urine 1.0 0.2 - 1.0 mg/dL LAB URINALYSIS - AUTOMATED METHOD 10/15/2024 6:53 PM [facility] Bilirubin, Urine Negative Negative LAB URINALYSIS - AUTOMATED METHOD 10/15/2024 6:53 PM [facility] Blood, Urine Trace(A) Negative LAB URINALYSIS - AUTOMATED METHOD 10/15/2024 6:53 PM [facility] RBC, Urine 2.2 0 - 4 /HPF LAB URINALYSIS - AUTOMATED METHOD 10/15/2024 6:53 PM [facility] WBC, Urine 223.5(H) 0 - 4 /HPF LAB URINALYSIS - AUTOMATED METHOD 10/15/2024 6:53 PM [facility] Squamous Epithelial, Urine 19 0 - 60 /LPF LAB URINALYSIS - AUTOMATED METHOD 10/15/2024 6:53 PM [facility] Bacteria, Urine Moderate(A) Negative /HPF LAB URINALYSIS - AUTOMATED METHOD 10/15/2024 6:53 PM [facility] Hyaline Casts, Urine 0.4 0 - 3 /LPF LAB URINALYSIS - AUTOMATED METHOD 10/15/2024 6:53 PM [facility] Urine Urine specimen obtained by clean catch procedure / Unknown Non-blood Collection / Unknown 10/15/2024 6:30 PM EDT 10/15/2024 6:40 PM EDT us Perla CHERRY LAB URINE ORDERABLES Fin al Result Performing Organization Address [facility]/ZIP Co de Phone Number [facility] [address] [place] [address], [place] [phone] * Couch urine culture tube (10/15/2024 6:30 PM EDT) Extra Tube Hold for add-ons. 10/15/2024 8:01 PM EDT [facility] Comment:Auto resulted. Urine Urine specimen obtained by clean catch procedure / Unknown Non-blood Collection / Unknown 10/15/2024 6:30 PM EDT 10/15/2024 6:40 PM EDT Perla CHERRY LAB URINE ORDERABLES Fin al Result Performing Organization Address [facility] Co de Phone Number [facility] [address] [place] [address], [place] [phone] * Culture urine (10/15/2024 6:30 PM EDT) Pathologist [facility] Culture, Urine >100,000 CFU/mL Mixed urogenital peter, no uropathogens present. Suggest repeat specimen if clinically indicated. 10/17/2024 10:33 AM EDT [facility] Urine Urine specimen obtained by clean catch procedure / Unknown Non-blood Collection / Unknown 10/15/2024 6:30 PM EDT 10/15/2024 6:53 PM EDT Perla CHERRY LAB MICROBIOLOGY - GENER AL ORDERABLES Final Result Performing Organization Address [facility]/ZIP Co de Phone Number [facility] [address] [place] [address], [place] [phone] * (ABNORMAL) CBC auto differential (10/15/2024 6:01 PM EDT) WBC 7.6 4.8 - 10.8 K/[facility] LAB HEMETOLOGY METHOD [facility]2024 [facility] RBC 5.10 4.50 - 5.50 M/mcL LAB HEMETOLOGY METHOD 10/15/2024 6:[facility] Hemoglobin 14.5 13.5 - 17.5 g/dL LAB HEMETOLOGY METHOD 10/15/2024 6:41 PM [facility] Hematocrit 44.9 42.0 - 54.0 % LAB HEMETOLOGY METHOD 10/15/2024 6:41 PM [facility] MCV 88.2 79.0 - 98.0 FL LAB HEMETOLOGY METHOD 10/15/2024 6:41 PM [facility] MCH 28.5 27.0 - 32.0 pcg LAB HEMETOLOGY METHOD 10/15/2024 6:41 PM [facility] MCHC 32.3 32.0 - 37.0 g/dL LAB HEMETOLOGY METHOD 10/15/2024 6:41 PM [facility] RDW 12.6 11.0 - 15.0 % LAB HEMETOLOGY METHOD 10/15/2024 6:41 PM [facility] Platelets 231 130 - 400 K/mcL LAB HEMETOLOGY METHOD 10/15/2024 6:41 PM [facility] MPV 12.0(H) 7.0 - 11.0 FL LAB HEMETOLOGY METHOD 10/15/2024 6:41 PM [facility] NRBC 0.0 <1.0 % LAB HEMETOLOGY METHOD 10/15/2024 6:41 PM [facility] NRBC Absolute 0.00 <0.10 K/mcL LAB HEMETOLOGY METHOD 10/15/2024 6:41 PM [facility] Neutrophils Relative 69.0 % LAB HEMETOLOGY METHOD 10/15/2024 6:41 PM EDT [facility] Lymphocytes Relative 21.7 % LAB HEMETOLOGY METHOD 10/15/2024 6:41 PM EDT [facility] Monocytes Relative 7.8 % LAB HEMETOLOGY METHOD 10/15/2024 6:41 PM [facility] Eosinophils Relative 0.9 % LAB HEMETOLOGY METHOD 10/15/2024 6:41 PM [facility] Basophils Relative 0.1 % LAB HEMETOLOGY METHOD 10/15/2024 6:41 PM [facility] Immature Granulocytes Relative 0.5 % LAB HEMETOLOGY METHOD 10/15/2024 6:41 PM [facility] Neutrophils Absolute 5.24 1.50 - 7.00 K/mcL LAB HEMETOLOGY METHOD 10/15/2024 6:41 PM [facility] Lymphocytes Absolute 1.65 1.00 - 5.00 K/mcL LAB HEMETOLOGY METHOD 10/15/2024 6:41 PM [facility] Monocytes Absolute 0.59 0.20 - 1.00 K/mcL LAB HEMETOLOGY METHOD 10/15/2024 6:41 PM [facility] Eosinophils Absolute 0.07 0.00 - 0.50 K/mcL LAB HEMETOLOGY METHOD 10/15/2024 6:41 PM [facility] Basophils Absolute 0.01 0.00 - 0.20 K/mcL LAB HEMETOLOGY METHOD 10/15/2024 6:41 PM [facility] Immature Granulocytes Absolute 0.04(H) 0.00 - 0.03 K/mcL LAB HEMETOLOGY METHOD 10/15/2024 6:41 PM [facility] Blood Venous blood specimen / Unknown Venipuncture / Unknown 10/15/2024 6:01 PM EDT 10/15/2024 6:33 PM EDT Perla CHERRY LAB BLOOD ORDERABLES Fin al Result Performing Organization Address [facility] Co de Phone Number [facility] [address] [place] [address], [place] [phone] * Alanine aminotransferase (10/15/2024 6:01 PM EDT) ALT (SGPT) 42 10 - 60 unit/L LAB CHEMISTRY METHOD 10/15/2024 9:53 PM EDT [facility] Blood Venous blood specimen / Unknown Venipuncture / Unknown 10/15/2024 6:01 PM EDT 10/15/2024 6:33 PM EDT Kenton Ortiz MD LAB BLOOD ORDERABLES Connie l Result Performing Organization Address [facility] Co de Phone Number [facility] [address] [place] [address], [place] [phone] * Aspartate aminotransferase (10/15/2024 6:01 PM EDT) AST (SGOT) 27 10 - 42 unit/L LAB CHEMISTRY METHOD 10/15/2024 9:53 PM EDT [facility] Blood Venous blood specimen / Unknown Venipuncture / Unknown 10/15/2024 6:01 PM EDT 10/15/2024 6:33 PM EDT Kenton Ortiz MD LAB BLOOD ORDERABLES Connie l Result Performing Organization Address [facility]/ZIP Co de Phone Number [facility] [address] [place] [address], [place] [phone] * (ABNORMAL) Alkaline phosphatase (10/15/2024 6:01 PM EDT) Alkaline Phosphatase 122(H) 42 - 121 unit/L LAB CHEMISTRY METHOD 10/15/2024 9:53 PM EDT [facility] Blood Venous blood specimen / Unknown Venipuncture / Unknown 10/15/2024 6:01 PM EDT 10/15/2024 6:33 PM EDT Kenton Ortiz MD LAB BLOOD ORDERABLES Connie l Result Performing Organization Address [facility]/ZIP Co de Phone Number [facility] [address] [place] [address], [place] [phone] * (ABNORMAL) Magnesium (10/15/2024 6:01 PM EDT) Magnesium 1.8(L) 1.9 - 2.6 mg/dL LAB CHEMISTRY METHOD 10/15/2024 7:01 PM EDT [facility] Blood Venous blood specimen / Unknown Venipuncture / Unknown 10/15/2024 6:01 PM EDT 10/15/2024 6:33 PM EDT Perla CHERRY LAB BLOOD ORDERABLES Fin al Result Performing Organization Address [facility] de Phone Number [facility] [address] [place] [address], [place] [phone] * Bilirubin, total (10/15/2024 6:01 PM EDT) Total Bilirubin 1.3 0.0 - 1.4 mg/dL LAB CHEMISTRY METHOD 10/15/2024 9:52 PM EDT [facility] Blood Venous blood specimen / Unknown Venipuncture / Unknown 10/15/2024 6:01 PM EDT 10/15/2024 6:33 PM EDT Kenton Ortiz MD LAB BLOOD ORDERABLES Connie l Result Performing Organization Address City/[facility]/ZIP Co de Phone Number [facility] [address] [place] [address], [place] [phone] * (ABNORMAL) Basic metabolic panel (10/15/2024 6:01 PM EDT) Sodium 138 133 - 145 mmol/L LAB CHEMISTRY METHOD 10/15/2024 7:11 PM [facility] Potassium 4.5 3.5 - 5.5 mmol/L LAB CHEMISTRY METHOD 10/15/2024 7:11 PM [facility] Chloride 105 96 - 110 mmol/L LAB CHEMISTRY METHOD 10/15/2024 7:11 PM [facility] CO2 30 21 - 32 mmol/L LAB CHEMISTRY METHOD 10/15/2024 7:11 PM [facility] Anion Gap 3 3 - 11 LAB CHEMISTRY METHOD 10/15/2024 7:11 PM [facility] Glucose 364(H) 70 - 100 mg/dL LAB CHEMISTRY METHOD 10/15/2024 7:11 PM [facility] BUN 27(H) 5 - 25 mg/dL LAB CHEMISTRY METHOD 10/15/2024 7:11 PM [facility] Creatinine 1.46(H) 0.70 - 1.30 mg/dL LAB CHEMISTRY METHOD 10/15/2024 7:11 PM [facility] eGFR 49(L) >=60 mL/min/1. 73m2 LAB CHEMISTRY METHOD 10/15/2024 7:11 PM [facility] Comment:Calculation based on the Chronic Kidney Disease Epidemiology Collaboration (CKD-EPI) equation refit without adjustment for race. BUN/Creatinine Ratio 18.5 LAB CHEMISTRY METHOD 10/15/2024 7:11 PM [facility] Calcium 9.3 8.5 - 10.5 mg/dL LAB CHEMISTRY METHOD 10/15/2024 7:11 PM [facility] Blood Venous blood specimen / Unknown Venipuncture / Unknown 10/15/2024 6:01 PM EDT 10/15/2024 6:33 PM EDT Perla CHERRY LAB BLOOD ORDERABLES Fin al Result [facility] ([facility]) [facility] [address] [place] [address], [place] [phone] from Last 3 Months Insurance MEDICARE MEDICAID - [place] Care Teams Instructor Dramatic Arts Relationship Specialty Start Date End Date Physician, No Pcp PCP - General 10/15/24
[2024-11-19 09:45] LABS: Hemoglobin A1C 368.6604 umol/L; Total Hemoglobin (HGBA1C) 3561.6835 umol/L
[2024-11-19 10:08] LABS: Alanine Aminotransferase 18 U/L (0-40); Albumin Level 4.0 g/dL (3.5-5.0); Alkaline Phosphatase 109 U/L (39-117); Anion Gap 9 (12-20); Aspartate Amino Transferase 23 U/L (5-37); Blood Urea Nitrogen 20 mg/dL (9-16); Calcium 9.3 mg/dL (8.4-10.2); Carbon Dioxide 31 mmol/L (22-29); Chloride 104 mmol/L (96-108); Cholesterol 114 mg/dL (<200); Estimated Glomerular Filt Rate > 60; HDL Cholesterol 44 mg/dL (>40); Potassium 4.4 mmol/L (3.3-5.1); Sodium 140 mmol/L (135-145); Total Protein 6.3 g/dL (6.5-8.0); Triglycerides 93 mg/dL (<150)
[2024-11-19 10:27] LABS: Thyroid Stimulating Hormone 3.38 uIU/mL (0.32-4.0)
[2024-11-19 11:20] LABS: Microalbum/Creatinine Ratio Ur 46.5 ug/mg cr (<30)
== END 2024-11-19 08:26 | disposition home or self-care (01) ==
LOC: HO.LAB 08:25
PROVIDERS: PCP Internal Medicine; Visit Provider Internal Medicine
DX: E03.8 Other specified hypothyroidism (principal); E11.22 Type 2 diabetes mellitus with diabetic chronic kidney disease; E78.00 Pure hypercholesterolemia, unspecified; F03.90 Unspecified dementia, unspecified severity, without behavioral disturbance, psychotic disturbance, mood disturbance, and anxiety; I10 Essential (primary) hypertension; N40.1 Benign prostatic hyperplasia with lower urinary tract symptoms; R97.20 Elevated prostate specific antigen [PSA]
CPT/HCPCS: 36415; 80053; 80061; 82043; 82570; 83036; 84443; 85025

== ENCOUNTER 2024-12-07 03:54 | Outpatient (REF) | payer MEDICARE, SELFPAY ==
[2024-12-07 04:05] VITALS: BP 115/61; PULSE 92; RESP 20; TEMP 36.6; O2SAT 95; BMI 23.3
--- NOTE | 2024-12-07 04:12 | ED_ITS ---
HPI - Nausea/Vomiting/Diarrhea General Chief complaint: Nausea/Vomiting/Diarrhea Stated complaint: BLOOD IN STOOL Time Seen by Provider: 12/07/24 06:40 Source: patient, family, EMS, old records reviewed and chief medical physicist Mode of arrival: EMS Limitations: other (dementia) History of Present Illness ED Provider: CLEMENT HPI Narrative: 79 male with PMH of UTI, DM, dementia, HTN who lives at home with his they note he finished an antibiotic about a week ago for UTI though it is unclear what was started. They state we called here for positive culture result. It is not documented what was started. They note a visiting RN was actually the one to administer it. He has had numerous diarrhea episodes since Tuesday. He is drinking but not eating well. He states he is fine. They note no fevers, abdominal pain. He is not responding to immodium. His called family tonight and stated she saw some flecks of blood in the diarrhea tonight and they called because of this. family states he was on two antibiotics for it. When I see the pharmacy it looks like he was on ceftin and cefuroxime. It is unclear if he recieved both MD elicited complaint: diarrhea Onset (ago): day(s) (Tuesday) Description of diarrhea: watery Associated nausea: No Associated abdominal pain: No Severity: severe Exacerbating factors: eating Relieving factors: none Context: recent antibiotic use Associated symptoms: loss of appetite Treatment prior to arrival: immodium Related Data Home Medications ?Medication ?Instructions ?Recorded ?Confirmed donepezil 10 mg tablet 10 mg PO DAILY 10/22/24 insulin aspart U-100 100 unit/mL 50 unit subcut DAILY 10/22/24 subcutaneous cartridge losartan 50 mg tablet 50 mg PO DAILY 10/22/24 memantine 10 mg tablet (Namenda) 10 mg PO QPM 10/22/24 metformin 1,000 mg tablet 1,000 mg PO DAILY 10/22/24 Previous Rx's ?Medication ?Instructions ?Recorded cefuroxime axetil 250 mg tablet 250 mg PO Q12H 7 days #14 tabs 11/19/24 Allergies Allergy/AdvReac Type Severity Reaction Status Date / Time No Known Allergies Allergy Verified 12/07/24 04:12 Review of Systems 2 Review of Systems: ROS unable to be obtained due to dementia Gastrointestinal: Gastrointestinal: Denies nausea PMFSH Past Medical History Attestation statement: The following information was validated with the patient. 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 Oriented at baseline. No acute distress. Eyes: Pupils equal, round and reactive to light. ENT: Pharynx normal. MMM Neck: Normal inspection. Neck supple. CVS: Normal heart rate and rhythm. Pulses normal. Respiratory: No respiratory distress. Breath sounds normal. Abdomen: Soft and nontender. Skin: Skin warm and dry. Normal skin color. Normal skin turgor. Extremities: No lower extremity edema. No calf ttp Neuro: Oriented to baseline. No motor deficit. No sensory deficit. Medications Administered Discontinued Medications Generic Name Dose Route Start Last Admin Trade Name Freq PRN Reason Stop Dose Admin Lactated Ringer's 1,000 mls @ 999 mls/hr 12/07/24 04:09 12/07/24 06:21 Lr IV 12/07/24 05:09 Infused .Q1H1M ONE Infusion Medical Decision Making Medical Decision Making MDM Narrative: 79 male with PMH of UTI, DM, dementia, HTN who lives at home with his here with c/o diarrhea following recent abx though unclear what antibiotic he was given at this time. He has no abdominal pain. I am going to obtian labs, stool studies and monitor his H/H. His family notes they saw flecks of blood now copious bleeding. At this time suspect abx associated diarrhea, c diff. Differential Diagnosis Differential Diagnoses: The differential diagnosis associated with the presentation includes c diff, diarrhea associated diarrhea, anemia, dehydration Admission/Observation Consideration of admission/observation: Escalation of care including admission/observation considered no stool episodes here has has no wbc count, stable VS, stable H/H he wants to go home, I discussed with family plan is to order outpatient GI panel and c diff send them home with supplies and they will follow up as outpatinet, given precautions to return on DC family thought he had BM but negative on check and he denies. stable for continued outpatient plan Lab Data MDM Lab Attestation statement: I reviewed the patient's lab results. 12/07/24 04:16 12/07/24 04:16 Labs: Lab Results 12/07/24 Range/Units 04:16 WBC 9.8 (4.8-10.8) X10*3/uL RBC 4.50 L (4.60-5.80) X10*6/uL Hgb 13.2 L (14.0-18.0) g/dl Hct 39.6 L (42.0-52.0) % MCV 88.0 (80.0-98.0) fL MCH 29.3 (27.0-33.0) pg MCHC 33.3 (31.0-36.0) g/dl RDW 13.5 (11.0-16.0) % Plt Count 202 (160-400) X10*3/uL MPV 10.8 (9.4-12.4) fL Immature Gran % (Auto) 0.4 (0.0-0.4) % Neut % (Auto) 76.0 H (45-73) % Lymph % (Auto) 10.6 L (20-40) % [place] % (Auto) 12.2 H (2-11) % Eos % (Auto) 0.4 (0-4) % Baso % (Auto) 0.4 (0-2) % Lymph # (Auto) 1.0 L (1.2-4.9) X10*3/uL [place] # (Auto) 1.2 (0.1-1.2) X10*3/uL Eos # (Auto) 0.0 (0.0-0.4) X10*3/uL Baso # (Auto) 0.0 (0.0-0.2) X10*3/uL Abs Immat Gran (auto) 0.04 H (0.00-0.03) X10*3/uL Absolute Neuts (auto) 7.5 (2.0-8.3) x10*3/uL Absolute Nucleated RBC 0.000 (0.0-0.012) X10*3/uL Nucleated RBC % (auto) 0.0 (0.0-0.2) /100WBC Sodium 138 (135-145) mmol/L Potassium 4.5 (3.3-5.1) mmol/L Chloride 103 (96-108) mmol/L Carbon Dioxide 24 (22-29) mmol/L Anion Gap 16 (12-20) BUN 24 H (9-16) mg/dL Creatinine 1.38 (0.5-1.4) mg/dL Estim Creat Clear Calc 35.7 Estimated GFR 50 Random Glucose 366 H* (60-115) mg/dL Calcium 9.5 (8.4-10.2) mg/dL Magnesium 1.8 (1.6-2.6) mg/dL Total Bilirubin 2.1 H (0.0-1.0) mg/dL Direct Bilirubin 0.6 H (0.0-0.5) mg/dL AST 24 (5-37) U/L ALT 23 (0-40) U/L Alkaline Phosphatase 97 (39-117) U/L Total Protein 6.5 (6.5-8.0) g/dL Albumin 4.1 (3.5-5.0) g/dL Lipase 6 L (8-78) U/L Independent Historian Clinical information obtained from an independent historian. History obtained from or confirmed by: EMS External Record Review External record reviewed: Inpatient record and Outpatient record Prescription Management I considered prescription management with: Antibiotic and Other Discharge Plan Discharge Clinical Impression: Diarrhea Qualifiers: Diarrhea type: unspecified type Qualified Code(s): R19.7 - Diarrhea, unspecified Patient Disposition: Home, Self-Care Instructions: Acute Diarrhea (ED) Additional Instructions: other than elevation in blood sugar labs are reassuring bring stool studies to the laboratory with the order slip it is okay to give immodium but not if there is fever > 100.4, severe pain, bloody stools return at any time for worsening symptoms or concerns. Prescriptions: No Action cefuroxime axetil 250 mg tablet 250 mg PO Q12H 7 Days Qty: 14 0RF losartan 50 mg tablet 50 mg PO DAILY metformin 1,000 mg tablet 1,000 mg PO DAILY insulin aspart U-100 100 unit/mL cartridge 50 unit subcut DAILY donepezil 10 mg tablet 10 mg PO DAILY memantine [Namenda] 10 mg tablet 10 mg PO QPM Interventions: ED Discharge Assessment Last Done: 12/07/24 06:31 Print Language: Moroccan
[2024-12-07] MEDS: Lactated Ringers 1,000 ML 999 ML IV (04:18)
[2024-12-07 04:23] LABS: Hematocrit 39.6 % (42.0-52.0); Hemoglobin 13.2 g/dl (14.0-18.0); Imm Gran Abs Auto 0.04 X10*3/uL (0.00-0.03); Imm Gran Pct Auto 0.4 % (0.0-0.4); Lymphocytes Absolute Auto 1.0 X10*3/uL (1.2-4.9); MANUAL DIFF FLAG NO; Mean Corpuscular HGB Conc 33.3 g/dl (31.0-36.0); Mean Corpuscular Hemoglobin 29.3 pg (27.0-33.0); Mean Corpuscular Volume 88.0 fL (80.0-98.0); NRBC Abs Auto 0.000 X10*3/uL (0.0-0.012); NRBC Pct Auto 0.0 /100WBC (0.0-0.2); Platelet Count 202 X10*3/uL (160-400); Red Blood Count 4.50 X10*6/uL (4.60-5.80); White Blood Count 9.8 X10*3/uL (4.8-10.8)
[2024-12-07 04:47] LABS: Alanine Aminotransferase 23 U/L (0-40); Albumin Level 4.1 g/dL (3.5-5.0); Alkaline Phosphatase 97 U/L (39-117); Anion Gap 16 (12-20); Aspartate Amino Transferase 24 U/L (5-37); Blood Urea Nitrogen 24 mg/dL (9-16); Calcium 9.5 mg/dL (8.4-10.2); Carbon Dioxide 24 mmol/L (22-29); Chloride 103 mmol/L (96-108); Creatinine Clr Calc Pharmacy 35.7; Estimated Glomerular Filt Rate 50; Lipase 6 U/L (8-78); Magnesium 1.8 mg/dL (1.6-2.6); Potassium 4.5 mmol/L (3.3-5.1); Sodium 138 mmol/L (135-145); Total Protein 6.5 g/dL (6.5-8.0)
[2024-12-07 06:31] VITALS: BP 115/61; PULSE 92; RESP 20; TEMP 36.6; O2SAT 95
[2024-12-07 12:51] LABS: CDiff Gene PCR NEGATIVE (Negative)
[2024-12-07 15:22] LABS: E. coli EAEC Not Detected (Not Detect.); E. coli EPEC Not Detected (Not Detect.); E. coli ETEC Not Detected (Not Detect.); E. coli STEC Not Detected (Not Detect.); Shigella sp./EIEC Not Detected (Not Detect.)
== END 2024-12-07 11:44 | disposition home or self-care (01) ==
LOC: HO.LNP 11:43
PROVIDERS: Emergency Medicine; Emergency Provider Emergency Medicine Emergency Medical Services; PCP Internal Medicine; Visit Provider Internal Medicine Hepatology
DX: R19.7 Diarrhea, unspecified (principal)
CPT/HCPCS: 36415; 80048; 80076; 83690; 83735; 85025; 87493; 87507; 99283; J7120

== ENCOUNTER 2024-12-07 21:01 | Inpatient (IN) | payer MEDICARE, SELFPAY ==
--- NOTE | ~2024-12-07 | CT_ITS ---
CLINICAL HISTORY: diarrhea, pain, pls eval for colitis CT abdomen and pelvis with contrast Comparison: None provided Findings: Bilateral basilar opacities likely atelectasis. No pleural effusion. A 1.4 cm gallstone is demonstrated in the gallbladder. No biliary ductal dilatation. The liver and spleen appear unremarkable. Pancreas is somewhat atrophic. Otherwise the pancreas appears unremarkable. Adrenal glands are normal. Enhancement of bilateral kidneys with no ureteral stones and no hydronephrosis or hydroureter. No perinephric stranding. 1.7 cm right renal lower pole cyst. No bowel obstruction, pneumoperitoneum, or pneumatosis. There is colonic wall thickening with adjacent inflammatory stranding involving the entire colon suggestive of colitis. No free fluid. No loculated fluid collection. The appendix is unremarkable. The prostate is enlarged measuring 5.8 cm x 5.8 cm. Correlate with PSA level. Mild urinary bladder wall thickening. Cystitis not excluded. Atherosclerotic vascular disease with no aneurysm of the abdominal aorta. No acute fracture. Multilevel degenerative changes of the lumbar spine and degenerative changes bilateral hips. IMPRESSION: 1. Findings suggestive of pancolitis which could be either inflammatory or infectious in etiology. 2. No bowel obstruction or pneumoperitoneum. 3. Urinary bladder wall thickening, correlate with urinalysis to rule out cystitis. 4. Cholelithiasis and additional nonacute findings as described. This document has been electronically signed by: Jojo Belle MD on 12/08/2024 00:30:54
[2024-12-07 21:08] VITALS: BP 134/60; PULSE 88; RESP 20; TEMP 36.2; O2SAT 95; BMI 23.2
--- NOTE | 2024-12-07 21:54 | ED.GENADULT ---
HPI - General Adult General Chief complaint: Nausea/Vomiting/Diarrhea Stated complaint: Diarrhea/seen here earlier today Time Seen by Provider: 12/07/24 21:54 History of Present Illness ED Provider: Kyra MORRISON narrative: The patient is an 79-year-old male who has a history of significant dementia and lives with a son. The patient was brought to the hospital this morning at 04:00 by ambulance because of copious diarrhea. The diarrhea had apparently begun 2 days ago on Tuesday. According to the son the patient was recently on a course of antibiotics for urinary tract infection but the son does not know what antibiotic it was. This morning the the patient was able to give a stool sample. There was a negative C diff toxin assay. At that time the patient had an unremarkable white count and unremarkable electrolytes and the patient was discharged to use Imodium as needed. The patient was also supposed to give an additional stool sample at home and then bring this to the hospital with a lab slip order for additional testing. The patient's son brought the patient back to the emergency room this evening because the son says that there has been copious ongoing diarrhea and the son was worried that the patient might be getting dehydrated. There may also be a complaint of abdominal pain although this is somewhat uncertain because of the patient's dementia. Related Data Home Medications ?Medication ?Instructions ?Recorded ?Confirmed donepezil 10 mg tablet 10 mg PO DAILY 10/22/24 12/08/24 insulin aspart U-100 100 unit/mL 50 unit subcut DAILY 10/22/24 subcutaneous cartridge losartan 50 mg tablet 100 mg PO DAILY 10/22/24 12/08/24 memantine 10 mg tablet (Namenda) 5 mg PO QPM 10/22/24 12/08/24 metformin 1,000 mg tablet 500 mg PO DAILY 10/22/24 12/08/24 amlodipine 5 mg tablet 5 mg PO DAILY 12/08/24 12/08/24 amlodipine 5 mg tablet 5 mg PO DAILY 12/08/24 12/08/24 atorvastatin 40 mg tablet 40 mg PO BEDTIME 12/08/24 12/08/24 hydralazine 25 mg tablet 25 mg BID 12/08/24 12/08/24 levothyroxine 112 mcg tablet 112 mcg PO DAILY 12/08/24 12/08/24 Previous Rx's ?Medication ?Instructions ?Recorded cefuroxime axetil 250 mg tablet 250 mg PO Q12H 7 days #14 tabs 11/19/24 Allergies Allergy/AdvReac Type Severity Reaction Status Date / Time No Known Allergies Allergy Verified 12/07/24 21:11 Review of Systems Review of Systems: Yes all other systems are reviewed and are negative [facility] Past Medical History Medical History Dementia Diabetes mellitus type 2, controlled, without complications Hypertension associated with chronic kidney disease due to type 2 diabetes mellitus Social History Social History Patient Tobacco Use Status: Tobacco use Unknown Smoked in Last 30 Days: No Use of substances other than those prescribed or required for medical reasons: No Advance Directives: No Advance Directives Information Provided: No Physical Exam ED Vital Signs: Vital Signs - 24 hr 12/07/24 21:08 Temperature 97.2 F Pulse Rate 88 Respiratory Rate 20 Blood Pressure 134/60 Pulse Oximetry 95 Oxygen Delivery Method Room Air BMI result Body Mass Index 23.2 Const Other: The patient is a slim 79-year-old male who was awake and alert. He seems pleasantly demented. He does not seem in obvious distress or pain. HENMT Other: The face is symmetrical. ?Mucous membranes moist. Eyes Other: Pupils are round equal, conjunctivae are clear, extraocular movements intact Neck Neck: Yes normal visual inspection, Yes full ROM and Yes no JVD Resp Effort & Inspection: normal respiratory effort Auscultation: clear to auscultation bilaterally Cardio Rate: regular rate Rhythm: regular rhythm Heart sounds: S1 normal heart sound present and S2 normal heart sound present GI Other: The abdomen is soft. There was equivocal tenderness. Rectal exam revealed only a trace amount of stool which did not look bloody or black. Skin Other: The skin is dry and unremarkable Neuro Other: The patient is awake and alert. He seems quite demented but reasonably pleasant. Cranial nerves 2-12 seem intact. He moves his extremities symmetrically and appropriately. He does not seem to have any focal findings in his exam seems normal aside from his dementia. Extrem Other: There is no calf swelling or tenderness. No asymmetry. No peripheral edema. Medications Administered Discontinued Medications Generic Name Dose Route Start Last Admin Trade Name Freq PRN Reason Stop Dose Admin Sodium Chloride 500 mls @ 500 mls/hr 12/07/24 22:45 12/08/24 01:06 Ns IV 12/07/24 23:44 Infused .Q1H NAILA Infusion Iohexol 85 ml 12/07/24 23:33 12/07/24 23:33 Iohexol 350 Mg/Ml 100 Ml Infus..Btl IV 12/07/24 23:34 85 ml ONCE ONE Administration Loperamide HCl 4 mg 12/08/24 00:24 12/08/24 01:06 Loperamide Hcl 2 Mg Capsule PO 12/08/24 00:25 4 mg ONCE ONE Administration Medical Decision Making Medical Decision Making [facility] Narrative: The patient is an 79-year-old male who recently took a course of cefuroxime for a Klebsiella pneumoniae UTI. He finished his these antibiotics approximately 11 or 12 days ago. Over the last 3 days he has had diarrhea. He was here this morning for the same diarrhea syndrome. He has a negative C diff assay and was discharged home to use Imodium. He returns this evening, brought here by his side, because of frequent copious diarrhea and a question of some abdominal discomfort. The patient is not look toxic. He is afebrile. He is not tachycardic. He has a normal white count. His CRP was fairly high however and so I obtained a CT of his abdomen and pelvis. This shows bower colitis. Whether this is an infectious or an inflammatory process is unclear. His C diff assay is negative. Serology for a GI stool panel has also been sent. There was no result for this and I do not think this will be run tonight. Given the patient's age, his dementia, and his frequent stools as well as his high CRP and the findings on CAT scan I think hospitalization is reasonable. He has continued to have ongoing copious diarrhea in the emergency department. The diarrhea is nonbloody. At this point it is not clear whether antibiotics should be initiated. I have sent blood cultures and a lactate. His lactate came back at 1.1. I will be admitting the patient to the hospitalist service. Lab Data 12/07/24 22:17 12/07/24 22:17 Labs: Lab Results 12/07/24 12/07/24 12/08/24 Range/Units 22:17 23:08 01:34 WBC 8.9 (4.8-10.8) X10*3/uL RBC 4.32 L (4.60-5.80) X10*6/uL Hgb 12.7 L (14.0-18.0) g/dl Hct 37.8 L (42.0-52.0) % MCV 87.5 (80.0-98.0) fL MCH 29.4 (27.0-33.0) pg MCHC 33.6 (31.0-36.0) g/dl RDW 13.2 (11.0-16.0) % Plt Count 206 (160-400) X10*3/uL MPV 10.7 (9.4-12.4) fL Immature Gran % (Auto) 0.2 (0.0-0.4) % Neut % (Auto) 74.5 H (45-73) % Lymph % (Auto) 11.4 L (20-40) % [place] % (Auto) 12.8 H (2-11) % Eos % (Auto) 0.6 (0-4) % Baso % (Auto) 0.5 (0-2) % Lymph # (Auto) 1.0 L (1.2-4.9) X10*3/uL [place] # (Auto) 1.1 (0.1-1.2) X10*3/uL Eos # (Auto) 0.1 (0.0-0.4) X10*3/uL Baso # (Auto) 0.0 (0.0-0.2) X10*3/uL Abs Immat Gran (auto) 0.02 (0.00-0.03) X10*3/uL Absolute Neuts (auto) 6.6 (2.0-8.3) x10*3/uL Absolute Nucleated RBC 0.000 (0.0-0.012) X10*3/uL Nucleated RBC % (auto) 0.0 (0.0-0.2) /100WBC Sodium 139 (135-145) mmol/L Potassium 4.2 (3.3-5.1) mmol/L Chloride 107 (96-108) mmol/L Carbon Dioxide 24 (22-29) mmol/L Anion Gap 12 (12-20) BUN 22 H (9-16) mg/dL Creatinine 1.02 (0.5-1.4) mg/dL Estim Creat Clear Calc 46.4 Estimated GFR > 60 Random Glucose 293 H (60-115) mg/dL Lactic Acid 1.1 (0.5-2.0) mmol/L Calcium 8.6 D (8.4-10.2) mg/dL Magnesium 1.6 (1.6-2.6) mg/dL Total Bilirubin 1.7 H (0.0-1.0) mg/dL Direct Bilirubin 0.5 (0.0-0.5) mg/dL AST 19 (5-37) U/L ALT 21 (0-40) U/L Alkaline Phosphatase 81 (39-117) U/L C-Reactive Protein 9.87 H (< or = 0.50) mg/dL Total Protein 6.0 L (6.5-8.0) g/dL Albumin 3.8 (3.5-5.0) g/dL C. difficile Tox B Gene NEGATIVE (Negative) Discharge Plan Discharge Clinical Impression: Colitis Diarrhea Qualifiers: Diarrhea type: unspecified type Qualified Code(s): R19.7 - Diarrhea, unspecified Patient Disposition: Admitted As Inpatient
[2024-12-07 22:27] LABS: MANUAL DIFF FLAG NO
[2024-12-07 22:28] LABS: Hematocrit 37.8 % (42.0-52.0); Hemoglobin 12.7 g/dl (14.0-18.0); Imm Gran Abs Auto 0.02 X10*3/uL (0.00-0.03); Imm Gran Pct Auto 0.2 % (0.0-0.4); Lymphocytes Absolute Auto 1.0 X10*3/uL (1.2-4.9); Mean Corpuscular HGB Conc 33.6 g/dl (31.0-36.0); Mean Corpuscular Hemoglobin 29.4 pg (27.0-33.0); Mean Corpuscular Volume 87.5 fL (80.0-98.0); NRBC Abs Auto 0.000 X10*3/uL (0.0-0.012); NRBC Pct Auto 0.0 /100WBC (0.0-0.2); Platelet Count 206 X10*3/uL (160-400); Red Blood Count 4.32 X10*6/uL (4.60-5.80); White Blood Count 8.9 X10*3/uL (4.8-10.8)
--- NOTE | 2024-12-07 22:31 | PC.NURSE ---
Son via instructor bus trolley and taxi states father has had diarrhea since Tuesday which has significantly increased over the weekend. The son also states pt was on abx recently for uti. Son also states pt has had decr. po intake and c/o abd pain. Pt is a poor historian secondary to alzheimers and dementia.
[2024-12-07 22:42] LABS: Alanine Aminotransferase 21 U/L (0-40); Albumin Level 3.8 g/dL (3.5-5.0); Alkaline Phosphatase 81 U/L (39-117); Anion Gap 12 (12-20); Aspartate Amino Transferase 19 U/L (5-37); Blood Urea Nitrogen 22 mg/dL (9-16); Calcium 8.6 mg/dL (8.4-10.2); Carbon Dioxide 24 mmol/L (22-29); Chloride 107 mmol/L (96-108); Creatinine Clr Calc Pharmacy 46.4; Estimated Glomerular Filt Rate > 60; Magnesium 1.6 mg/dL (1.6-2.6); Potassium 4.2 mmol/L (3.3-5.1); Sodium 139 mmol/L (135-145); Total Protein 6.0 g/dL (6.5-8.0)
--- NOTE | 2024-12-07 23:10 | PC.NURSE ---
Stool sample collected and fluids hung, notified [facility]
[2024-12-07] MEDS: iohexoL 350 MG/ML 100 ML INFUS..BTL 85 ML IV (23:33)
[2024-12-08 00:04] LABS: CDiff Gene PCR NEGATIVE (Negative)
--- NOTE | 2024-12-08 01:24 | PM.IMHP ---
History of Present Illness Date of Service: 12/08/24 Attending physician on admission: Derek Mares Chief Complaint: diarrhea Patient is an 79-year-old [place] Citizen speaking male with a past medical history significant for dementia, hypothyroid, type 2 diabetes on insulin and metformin, losartan, who presented to the ED for the 2nd time in the past 24 hours due to persistent diarrhea. The patient reported to the ED earlier yesterday due to severe diarrhea, workup was negative, C diff negative and he was discharged home with diabetic diarrhea and instructed to take Imodium. The patient then returned back to the ED due to persistent diarrhea even with the Imodium. There was no blood in the stool. The patient does report that he did have recent antibiotics, questionable which antibiotic he took however was a cephalosporin. This was mid October. His diarrhea started about 3 days ago. He denies any nausea or vomiting. No significant abdominal pain. The patient has dementia and therefore the history is difficult to obtain, his son reported most of the history and is primary line manager. has not taken metformin since yesterday morning or insulin since last night due to poor PO intake from diarrhea. Review of Systems Review of Systems: Yes Unobtainable due to mental condition [facility] Medical History Dementia Diabetes mellitus type 2, controlled, without complications Hypertension associated with chronic kidney disease due to type 2 diabetes mellitus Social History Patient Tobacco Use Status: Tobacco use Unknown Smoked in Last 30 Days: No Use of substances other than those prescribed or required for medical reasons: No Advance Directives: No Advance Directives Information Provided: No Meds Allergies Allergy/AdvReac Type Severity Reaction Status Date / Time No Known Allergies Allergy Verified 12/07/24 21:11 Home Medications ?Medication ?Instructions ?Recorded ?Confirmed ?Last Taken ?Type donepezil 10 mg tablet 10 mg PO DAILY 10/22/24 12/08/24 Unknown History insulin aspart U-100 100 unit/mL 50 unit subcut DAILY 10/22/24 Unknown History subcutaneous cartridge losartan 50 mg tablet 100 mg PO DAILY 10/22/24 12/08/24 Unknown History memantine 10 mg tablet (Namenda) 5 mg PO QPM 10/22/24 12/08/24 Unknown History metformin 1,000 mg tablet 500 mg PO DAILY 10/22/24 12/08/24 Unknown History amlodipine 5 mg tablet 5 mg PO DAILY 12/08/24 12/08/24 Unknown History amlodipine 5 mg tablet 5 mg PO DAILY 12/08/24 12/08/24 Unknown History atorvastatin 40 mg tablet 40 mg PO BEDTIME 12/08/24 12/08/24 Unknown History hydralazine 25 mg tablet 25 mg BID 12/08/24 12/08/24 Unknown History levothyroxine 112 mcg tablet 112 mcg PO DAILY 12/08/24 12/08/24 Unknown History Physical Exam Vital Signs and Narrative: Vital Signs: Last Vital Signs Temp 97.2 F 12/07/24 21:08 Pulse 88 12/07/24 21:08 Resp 20 12/07/24 21:08 BP 134/60 12/07/24 21:08 Pulse Ox 95 12/07/24 21:08 O2 Del Method Room Air 12/07/24 21:08 BMI result Body Mass Index 23.2 General: Alert not oriented x3, no acute distress. ipad booking clerk used. Resp: CTA bilaterally CVS: S1, S2, RRR GI: +BS, tender lower abd, no distention Skin: Warm, dry Neuro: Cranial nerves II-XII grossly intact bilaterally. Motor grossly intact bilaterally Extremities: No pitting edema Psych: Does not respond to questions Results Labs 12/07/24 22:17 12/07/24 22:17 Labs: Laboratory Results - last 24 hr 12/07/24 12/07/24 22:17 23:08 MCV 87.5 MCH 29.4 MCHC 33.6 RDW 13.2 Plt Count 206 MPV 10.7 Immature Gran % (Auto) 0.2 Neut % (Auto) 74.5 H Lymph % (Auto) 11.4 L [place] % (Auto) 12.8 H Eos % (Auto) 0.6 Baso % (Auto) 0.5 Lymph # (Auto) 1.0 L [place] # (Auto) 1.1 Eos # (Auto) 0.1 Baso # (Auto) 0.0 Abs Immat Gran (auto) 0.02 Absolute Neuts (auto) 6.6 Absolute Nucleated RBC 0.000 Nucleated RBC % (auto) 0.0 Anion Gap 12 Estim Creat Clear Calc 46.4 Estimated GFR > 60 Random Glucose 293 H Calcium 8.6 D Magnesium 1.6 Total Bilirubin 1.7 H Direct Bilirubin 0.5 AST 19 ALT 21 Alkaline Phosphatase 81 C-Reactive Protein 9.87 H Total Protein 6.0 L Albumin 3.8 C. difficile Tox B Gene NEGATIVE Assessment and Plan (1) Diarrhea: Qualifiers: Diarrhea type: unspecified type Qualified Code(s): R19.7 - Diarrhea, unspecified Status: Acute (2) Colitis: Status: Acute Plan Patient is an 79-year-old [place] Citizen speaking male with a past medical history significant for dementia, hypothyroid, type 2 diabetes on insulin and metformin, HTN, who presented to the ED for the 2nd time in the past 24 hours due to persistent diarrhea. diarrhea, pancolitis on CT - GI panel pending - imodium - clear liquid diet - GI consult - IVF - monitor CBC and BMP dementia - donepezil hypothyroid - levothyroxine - check TSH as cause for diarrhea T2DM - lantus nightly, resume when better PO intake - SSI - hold metformin HTN - losartan med rec pending full code VTE prophy: heparin Pt with persistent diarrhea and pancolitis on CT requiring admission for at least 2 midnights stay for further evaluation and monitoring. Quality Stroke Does the patient have a stroke diagnosis?: No VTE Prior VTE?: No VTE Risk Level:: Medical - moderate - high VTE Device Contraindication: Treatment Not Indicated VTE Drug Contraindication: N/A - Med Ordered
[2024-12-08 02:06] VITALS: BP 133/52; PULSE 78; RESP 18; TEMP 37.1; O2SAT 96
[2024-12-08] MEDS: Lactated Ringers 1,000 ML 75 ML IVCONT ×2 (02:08→15:58)
[2024-12-08 02:46] LABS: Glucose, Whole Blood 212 mg/dL (60-115)
[2024-12-08 04:00] VITALS: BP 140/65; PULSE 83; RESP 17; TEMP 37.1; O2SAT 97
[2024-12-08 05:58] LABS: MANUAL DIFF FLAG NO
[2024-12-08 06:14] LABS: Hematocrit 38.9 % (42.0-52.0); Hemoglobin 13.2 g/dl (14.0-18.0); Imm Gran Abs Auto 0.01 X10*3/uL (0.00-0.03); Imm Gran Pct Auto 0.1 % (0.0-0.4); Lymphocytes Absolute Auto 1.3 X10*3/uL (1.2-4.9); Mean Corpuscular HGB Conc 33.9 g/dl (31.0-36.0); Mean Corpuscular Hemoglobin 29.9 pg (27.0-33.0); Mean Corpuscular Volume 88.2 fL (80.0-98.0); NRBC Abs Auto 0.000 X10*3/uL (0.0-0.012); NRBC Pct Auto 0.0 /100WBC (0.0-0.2); Platelet Count 214 X10*3/uL (160-400); Red Blood Count 4.41 X10*6/uL (4.60-5.80); White Blood Count 7.8 X10*3/uL (4.8-10.8)
[2024-12-08 06:18] LABS: Anion Gap 13 (12-20); Blood Urea Nitrogen 22 mg/dL (9-16); Calcium 9.0 mg/dL (8.4-10.2); Carbon Dioxide 25 mmol/L (22-29); Chloride 105 mmol/L (96-108); Creatinine Clr Calc Pharmacy 50.4; Estimated Glomerular Filt Rate > 60; Magnesium 1.7 mg/dL (1.6-2.6); Potassium 4.0 mmol/L (3.3-5.1); Sodium 139 mmol/L (135-145)
[2024-12-08 08:00] VITALS: BP 148/68; PULSE 66; RESP 14; TEMP 36.7; O2SAT 98
[2024-12-08 08:06] LABS: Glucose, Whole Blood 169 mg/dL (60-115)
[2024-12-08] MEDS: 0.9 % Sodium Chloride Flush 3 ML SYRINGE IVFLUSH (09:01)
[2024-12-08 09:52] LABS: E. coli EAEC Not Detected (Not Detect.); E. coli EPEC Not Detected (Not Detect.); E. coli ETEC Not Detected (Not Detect.); E. coli STEC Not Detected (Not Detect.); Shigella sp./EIEC Not Detected (Not Detect.)
--- NOTE | 2024-12-08 10:14 | HO.PM.IMPN ---
Subjective Subjective Date of Service: 12/08/24 Interval History: This history was taken in Thai from the patient. Ongoing diarrhea, no abd pain, history limited by dementia. Review of Systems Review of Systems: Yes all other systems are reviewed and are negative Physical Exam Vital Signs: Vital Signs: Last Vital Signs Temp 98.1 F 12/08/24 08:00 Pulse 66 12/08/24 08:00 Resp 14 12/08/24 08:00 BP 148/68 H 12/08/24 08:00 Pulse Ox 98 12/08/24 08:00 O2 Del Method Room Air 12/08/24 08:00 BMI result Body Mass Index 23.2 Gen: in no acute distress HEENT: sclera anicteric, moist mucus membranes Neck: supple Lungs: clear to auscultation bilaterally Heart: regular rate and rhythm, no murmurs Abd: soft, non-tender, non-distended Ext: no edema Skin: warm/well-perfused Neuro: alert, disoriented Psych: impaired insight Objective Data Active Medications Acetaminophen (Acetaminophen 325 Mg Tablet) 975 mg PO Q6H PRN PRN Reason: Pain, Mild 1-3,fever,headache Amlodipine Besylate (Amlodipine Besylate 5 Mg Tablet) 5 mg PO DAILY [facility]; Protocol Atorvastatin Calcium (Atorvastatin Calcium 40 Mg Tablet) 40 mg PO BEDTIME [facility] Calcium Carbonate (Calcium Carbonate 750 Mg Tab.Chew) 750 mg PO Q4H PRN PRN Reason: Heartburn Dextrose (Dextrose 50 % 25 Gm/50 Ml Syringe) 25 gm IVPUSH Q15M PRN; Protocol PRN Reason: per Hypoglycemia Standing Ord. Donepezil HCl (Donepezil Hcl 10 Mg Tablet) 10 mg PO DAILY [facility] Glucose (Glucose Gel 15 Gm Gel..Gram.) 15 gm PO Q15M PRN; Protocol PRN Reason: per Hypoglycemia Standing Ord. Heparin Sodium (Porcine) (Heparin Sodium,Porcine 5,000 Unit/Ml Vial) 5,000 unit SUBCUT 0900,2100 [facility] Last Admin: 12/08/24 08:58 Dose: 5,000 unit Documented By: SAUMYA Hydralazine HCl (Hydralazine Hcl 25 Mg Tablet) 25 mg PO BID [facility]; Protocol Lactated Ringer's (Lr) 1,000 mls @ 75 mls/hr IVCONT .[id number] [facility] Last Admin: 12/08/24 02:08 Dose: 75 mls/hr Documented By: JC Piperacillin Sod/Tazobactam (Sod 3.375 gm/ Sodium Chloride) 50 mls @ 100 mls/hr IV Q6H [facility] Last Infusion: 12/08/24 09:46 Dose: Infused Documented By: SAUMYA Insulin Human Lispro (Insulin Lispro 100 Unit/Ml 3 Ml Vial) 0 unit SUBCUT QIDACHS [facility]; Protocol Last Admin: 12/08/24 08:57 Dose: 2 unit Documented By: SAUMYA Levothyroxine Sodium (Levothyroxine Sodium 112 Mcg Tablet) 112 mcg PO DAILY [facility] Loperamide HCl (Loperamide Hcl 2 Mg Capsule) 2 mg PO Q4H PRN PRN Reason: Diarrhea Losartan Potassium (Losartan Potassium 50 Mg Tablet) 100 mg PO DAILY [facility]; Protocol Magnesium Hydroxide (Milk Of Magnesia 30 Ml Oral.Susp) 30 ml PO DAILY PRN PRN Reason: Constipation Melatonin (Melatonin 3 Mg Tablet) 6 mg PO BEDTIME PRN PRN Reason: Insomnia Memantine (Memantine Hcl 5 Mg Tablet) 5 mg PO QPM [facility] Ondansetron HCl (Ondansetron Hcl 4 Mg/2 Ml Vial) 4 mg IVPUSH Q8H PRN PRN Reason: Nausea and Vomiting Oxycodone HCl (Oxycodone Hcl Immed Release 5 Mg Tablet) 5 mg PO Q6H PRN PRN Reason: Pain, Severe (Pain Scale 7-10) Sodium Chloride (0.9 % Sodium Chloride Flush 3 Ml Syringe) 3 ml IVFLUSH QSHIFT [facility] Last Admin: 12/08/24 09:01 Dose: 3 ml Documented By: SAUMYA Tramadol HCl (Tramadol Hcl 50 Mg Tablet) 50 mg PO Q6H PRN PRN Reason: Pain, Moderate(Pain Scale 4-6) Labs 12/08/24 05:44 12/08/24 05:44 Labs: Laboratory Results - last 24 hr 12/07/24 12/07/24 12/08/24 22:17 23:08 01:34 MCV 87.5 MCH 29.4 MCHC 33.6 RDW 13.2 Plt Count 206 MPV 10.7 Immature Gran % (Auto) 0.2 Neut % (Auto) 74.5 H Lymph % (Auto) 11.4 L [place] % (Auto) 12.8 H Eos % (Auto) 0.6 Baso % (Auto) 0.5 Lymph # (Auto) 1.0 L [place] # (Auto) 1.1 Eos # (Auto) 0.1 Baso # (Auto) 0.0 Abs Immat Gran (auto) 0.02 Absolute Neuts (auto) 6.6 Absolute Nucleated RBC 0.000 Nucleated RBC % (auto) 0.0 Anion Gap 12 Estim Creat Clear Calc 46.4 Estimated GFR > 60 POC Glucose Random Glucose 293 H Lactic Acid 1.1 Calcium 8.6 D Magnesium 1.6 Total Bilirubin 1.7 H Direct Bilirubin 0.5 AST 19 ALT 21 Alkaline Phosphatase 81 C-Reactive Protein 9.87 H Total Protein 6.0 L Albumin 3.8 C. difficile Tox B Gene NEGATIVE 12/08/24 12/08/24 12/08/24 02:41 05:44 07:39 MCV 88.2 MCH 29.9 MCHC 33.9 RDW 13.4 Plt Count 214 MPV 11.1 Immature Gran % (Auto) 0.1 Neut % (Auto) 68.4 Lymph % (Auto) 16.1 L [place] % (Auto) 13.9 H Eos % (Auto) 1.0 Baso % (Auto) 0.5 Lymph # (Auto) 1.3 [place] # (Auto) 1.1 Eos # (Auto) 0.1 Baso # (Auto) 0.0 Abs Immat Gran (auto) 0.01 Absolute Neuts (auto) 5.3 Absolute Nucleated RBC 0.000 Nucleated RBC % (auto) 0.0 Anion Gap 13 Estim Creat Clear Calc 50.4 Estimated GFR > 60 POC Glucose 212 H 169 H Random Glucose 186 H Lactic Acid Calcium 9.0 Magnesium 1.7 Total Bilirubin Direct Bilirubin AST ALT Alkaline Phosphatase C-Reactive Protein Total Protein Albumin C. difficile Tox B Gene Assessment and Plan (1) Colitis: Status: Acute Plan d1, 79yo M with dementia, hypothyroidism, DM2, HTN presenting to ED for 2nd time in 24h with persistent diarrhea pancolitis: Cdiff neg, repeat GI panel pending, prn loperamide, clear liquid diet, 12/08- piperacillin-tazobactam, IV fluids, GI consult dementia: donepezil, memantine hypothyroidism: continue LT4 DM2: hold MTF, give demian-dose lispro HTN: losartan, hydralazine, amlodipine VTE ppx: UFH dispo: TBD In my clinical judgment, the patient requires continued inpatient hospitalization for the following reasons: GI workup Total time managing care of this patient today: 35 minutes. Quality Stroke Does the patient have a stroke diagnosis?: No VTE Prior VTE?: No VTE Risk Level:: Medical - moderate - high VTE Device Contraindication: Treatment Not Indicated VTE Drug Contraindication: N/A - Med Ordered
--- NOTE | 2024-12-08 10:43 | PHA.MEDREC ---
Pharmacy Consult ? Medication Reconciliation Pharmacy has completed the medication reconciliation. Confirmed medication list from patient's family member. Patient took all medications yesterday.
[2024-12-08 11:50] LABS: Glucose, Whole Blood 170 mg/dL (60-115)
--- NOTE | 2024-12-08 14:51 | PC.NURSE ---
DECATIZER brought urine sample to the lab, awaiting BM
[2024-12-08 15:27] LABS: Appearance Urine Cloudy; Glucose Urine UA 250 mg/dL (Negative); PH 5.5 (5.0-9.0); Specific Gravity - Urine >= 1.030 (1.005-1.025); UMIC TRIGGER UA YES
[2024-12-08 15:41] LABS: Other Crystals Urine Present
[2024-12-08 15:55] VITALS: BP 120/56; PULSE 77; RESP 18; TEMP 36.8; O2SAT 97
[2024-12-08 16:26] LABS: Glucose, Whole Blood 157 mg/dL (60-115)
[2024-12-08] MEDS: oxyCODONE HCl Immed Release 5 MG TABLET PO (19:43)
[2024-12-08 20:00] VITALS: BP 127/70; PULSE 79; RESP 16; TEMP 36.2; O2SAT 98
--- NOTE | 2024-12-08 21:01 | CONS_ITS ---
DATE OF SERVICE: 12/08/2024 REFERRING PHYSICIAN: JO ANN Cool REASON FOR CONSULTATION: Colitis. HISTORY OF PRESENT ILLNESS: The patient is a pleasant 79-year-old man with dementia who is seen today in consultation because of colitis and diarrhea. History is obtained from the chart as the patient has dementia, it is also obtained from his granddaughter. He reportedly has had diarrhea for several days and visited the ER twice before being admitted. Laboratory testing so far has been negative for any acute infectious process and he was recently on cephalosporin reportedly for some cellulitis. There is no underlying history of colitis or Crohn disease. His granddaughter does not know when his last colonoscopy was. Evaluation in the emergency room was undertaken and laboratory studies were obtained, which are reviewed. Imaging was also done and CT scanning is interpreted as showing pancolitis. Current treatment includes antibiotics as well as his regular medications. PAST MEDICAL HISTORY: 1. Hypothyroidism. 2. Dementia. 3. Type 2 diabetes. 4. Colitis as above. CURRENT MEDICATIONS: List is reviewed in the chart. ALLERGIES: THERE ARE NONE REPORTED. FAMILY HISTORY: This is reviewed in the electronic medical record and is noncontributory. SOCIAL HISTORY: There is no reported tobacco, alcohol, or substance abuse. REVIEW OF SYSTEMS: This is not obtainable. PHYSICAL EXAMINATION: GENERAL: Shows a pleasant, elderly male, who answers simple questions. He does not appear in any distress. VITAL SIGNS: Reviewed in the electronic medical record and are stable. SKIN: Anicteric. HEENT: Shows no scleral icterus. NECK: Without lymphadenopathy or thyromegaly. LUNGS: Clear. HEART: Shows regular rate and rhythm. S1, S2. No murmur. ABDOMEN: Soft without focal masses or tenderness. Bowel sounds are present. No organomegaly is noted. EXTREMITIES: Without edema. LABORATORY DATA AND IMAGING STUDIES: Reviewed. IMPRESSION: The differential diagnosis for this includes infectious, ischemic, inflammatory bowel disease. At this time, he appears to be doing well. I agree with treating him with antibiotic. Stool testing has been done and so far is negative. Further testing will be ordered for parasitology and stool white blood cells. Thanks for asking me to see him. I will follow him in the hospital with you. MD DAVID Feldman/CORDELL / [phone]
--- NOTE | 2024-12-08 23:17 | PC.NURSE ---
At 20:00 Pt became agitated & restless, and began pulling at IV. This RN disconnected the IVFs. Pt's son requested Seroquel 200mg, since the pt takes it at home. notified at 20:10. Seroquel 100mg ordered and administered with good effect. IVFs were connected again. At 21:33 MD notified d/t pt's increasing agitation and combativeness: trying to pull out IV, get OOB, swiping at family members and staff. IVFs disconnected. An additional 100mg of Seroquel was ordered and administered with good effect. Pt is currently laying in bed comfortably, with IVFs running, and family remains at the bedside.
--- NOTE | 2024-12-09 03:08 | PC.NURSE ---
Pt refused 0400 vitals. Per TRANSPORTATION OPERATIONS MANAGER, pt held arms close to his body, shook his head, and said no repeatedly.
[2024-12-09 06:24] VITALS: BP 133/65; PULSE 67; RESP 16; TEMP 36.3; O2SAT 95
[2024-12-09 06:33] LABS: MANUAL DIFF FLAG NO
[2024-12-09 06:36] LABS: Hematocrit 32.8 % (42.0-52.0); Hemoglobin 11.0 g/dl (14.0-18.0); Imm Gran Abs Auto 0.01 X10*3/uL (0.00-0.03); Imm Gran Pct Auto 0.2 % (0.0-0.4); Lymphocytes Absolute Auto 1.6 X10*3/uL (1.2-4.9); Mean Corpuscular HGB Conc 33.5 g/dl (31.0-36.0); Mean Corpuscular Hemoglobin 30.0 pg (27.0-33.0); Mean Corpuscular Volume 89.4 fL (80.0-98.0); NRBC Abs Auto 0.000 X10*3/uL (0.0-0.012); NRBC Pct Auto 0.0 /100WBC (0.0-0.2); Platelet Count 175 X10*3/uL (160-400); Red Blood Count 3.67 X10*6/uL (4.60-5.80); White Blood Count 4.4 X10*3/uL (4.8-10.8)
[2024-12-09 06:51] LABS: Anion Gap 12 (12-20); Blood Urea Nitrogen 15 mg/dL (9-16); Calcium 8.3 mg/dL (8.4-10.2); Carbon Dioxide 25 mmol/L (22-29); Chloride 108 mmol/L (96-108); Creatinine Clr Calc Pharmacy 46.9; Estimated Glomerular Filt Rate > 60; Magnesium 1.5 mg/dL (1.6-2.6); Potassium 3.3 mmol/L (3.3-5.1); Sodium 142 mmol/L (135-145)
--- NOTE | 2024-12-09 07:17 | P.PNIM_ITS ---
Subjective Subjective Date of Service: 12/09/24 Interval History: Son at the bedside No further diarrheal episodes Per GI, likely undetected enteritis, can treat with Imodium p.r.n. Given ongoing current medical condition, patient's son and as a team we do not deemed the patient appropriate for a colonoscopy invasive procedure given risks outweigh the benefits Review of Systems ROS from son at the bedside and adjunct professor of law of Systems: Yes Unobtainable due to mental condition and Unobtainable due to mental status Physical Exam 2 Exam: Exam: General: AOx3, , frail, not in acute distress Resp: CTA bilaterally CVS: S1, S2, RRR GI: NT, protuberant, sluggish bowel sounds Neuro: Motor grossly intact at baseline-mostly bed-bound Patient has baseline dementia Objective Data Active Medications Acetaminophen (Acetaminophen 325 Mg Tablet) 975 mg PO Q6H PRN PRN Reason: Pain, Mild 1-3,fever,headache Amlodipine Besylate (Amlodipine Besylate 5 Mg Tablet) 5 mg PO DAILY@1700 [facility]; Protocol Last Admin: 12/08/24 17:45 Dose: 5 mg Documented By: SAUMYA Atorvastatin Calcium (Atorvastatin Calcium 40 Mg Tablet) 40 mg PO BEDTIME [facility] Last Admin: 12/08/24 20:27 Dose: 40 mg Documented By: FREDRICK Calcium Carbonate (Calcium Carbonate 750 Mg Tab.Chew) 750 mg PO Q4H PRN PRN Reason: Heartburn Dextrose (Dextrose 50 % 25 Gm/50 Ml Syringe) 25 gm IVPUSH Q15M PRN; Protocol PRN Reason: per Hypoglycemia Standing Ord. Donepezil HCl (Donepezil Hcl 10 Mg Tablet) 10 mg PO DAILY [facility] Last Admin: 12/08/24 11:37 Dose: 10 mg Documented By: SAUMYA Glucose (Glucose Gel 15 Gm Gel..Gram.) 15 gm PO Q15M PRN; Protocol PRN Reason: per Hypoglycemia Standing Ord. Heparin Sodium (Porcine) (Heparin Sodium,Porcine 5,000 Unit/Ml Vial) 5,000 unit SUBCUT 0900,2100 [facility] Last Admin: 12/08/24 20:31 Dose: 5,000 unit Documented By: FREDRICK Hydralazine HCl (Hydralazine Hcl 25 Mg Tablet) 25 mg PO BID [facility]; Protocol Last Admin: 12/08/24 20:27 Dose: 25 mg Documented By: FREDRICK Lactated Ringer's (Lr) 1,000 mls @ 75 mls/hr IVCONT .[id number] [facility] Last Admin: 12/09/24 05:40 Dose: Not Given Documented By: FREDRICK Non-Admin Reason: IV Running Piperacillin Sod/Tazobactam (Sod 3.375 gm/ Sodium Chloride) 50 mls @ 100 mls/hr IV Q6H [facility] Last Infusion: 12/09/24 02:32 Dose: Infused Documented By: FREDRICK Insulin Human Lispro (Insulin Lispro 100 Unit/Ml 3 Ml Vial) 0 unit SUBCUT QIDACHS [facility]; Protocol Last Admin: 12/08/24 20:46 Dose: Not Given Documented By: FREDRICK Non-Admin Reason: No Insulin Coverage Comments: POC 113 Levothyroxine Sodium (Levothyroxine Sodium 112 Mcg Tablet) 112 mcg PO DAILY@0600 [facility] Last Admin: 12/09/24 05:44 Dose: 112 mcg Documented By: FREDRICK Loperamide HCl (Loperamide Hcl 2 Mg Capsule) 2 mg PO Q4H PRN PRN Reason: Diarrhea Losartan Potassium (Losartan Potassium 50 Mg Tablet) 100 mg PO DAILY [facility]; Protocol Last Admin: 12/08/24 11:32 Dose: 100 mg Documented By: SAUMYA Magnesium Hydroxide (Milk Of Magnesia 30 Ml Oral.Susp) 30 ml PO DAILY PRN PRN Reason: Constipation Melatonin (Melatonin 3 Mg Tablet) 6 mg PO BEDTIME PRN PRN Reason: Insomnia Memantine (Memantine Hcl 5 Mg Tablet) 5 mg PO BEDTIME [facility] Last Admin: 12/08/24 20:27 Dose: 5 mg Documented By: FREDRICK Ondansetron HCl (Ondansetron Hcl 4 Mg/2 Ml Vial) 4 mg IVPUSH Q8H PRN PRN Reason: Nausea and Vomiting Oxycodone HCl (Oxycodone Hcl Immed Release 5 Mg Tablet) 5 mg PO Q6H PRN PRN Reason: Pain, Severe (Pain Scale 7-10) Last Admin: 12/08/24 19:43 Dose: 5 mg Documented By: FREDRICK Quetiapine Fumarate (Quetiapine Fumarate 200 Mg Tablet) 200 mg PO BEDTIME [facility] Sodium Chloride (0.9 % Sodium Chloride Flush 3 Ml Syringe) 3 ml IVFLUSH QSHIFT [facility] Last Admin: 12/08/24 21:10 Dose: Not Given Documented By: FREDRICK Non-Admin Reason: IV Running Tramadol HCl (Tramadol Hcl 50 Mg Tablet) 50 mg PO Q6H PRN PRN Reason: Pain, Moderate(Pain Scale 4-6) Labs 12/09/24 06:25 12/09/24 06:25 Labs: Laboratory Results - last 24 hr 12/07/24 12/08/24 12/08/24 23:08 07:39 11:22 MCV MCH MCHC RDW Plt Count MPV Immature Gran % (Auto) Neut % (Auto) Lymph % (Auto) [place] % (Auto) Eos % (Auto) Baso % (Auto) Lymph # (Auto) [place] # (Auto) Eos # (Auto) Baso # (Auto) Abs Immat Gran (auto) Absolute Neuts (auto) Absolute Nucleated RBC Nucleated RBC % (auto) Anion Gap Estim Creat Clear Calc Estimated GFR POC Glucose 169 H 170 H Random Glucose Calcium Magnesium C-Reactive Protein Urine Color Urine Appearance Urine pH Ur Specific [place] Urine Protein Urine Glucose (UA) Urine Ketones Urine Blood Urine Nitrite Ur Leukocyte Esterase Urine RBC Urine WBC Ur Squamous Epith Cells Other Crystals Urine Bacteria Hyaline Casts Urine Yeast Stl C. cayetanensis PCR Not Detected Stool Rotavirus A PCR Not Detected Stl Adenov F 40/41 PCR Not Detected Stool Astrovirus (PCR) Not Detected Stool Campylobacter PCR Not Detected Stool Cryptosporidium PCR Not Detected Stl Sh Tox Pr E STEC PCR Not Detected Stool E coli O157 PCR Not applicable Stl Enterotoxigenic E PCR Not Detected Stool EPEC (PCR) Not Detected Stool EAEC (PCR) Not Detected Stl E. histolytica PCR Not Detected Stool Giardia Lamblia PCR Not Detected Stl P. shigelloides PCR Not Detected Stool Salmonella PCR Not Detected Stool Sapovirus (PCR) Not Detected Stl Shigella/EIEC PCR Not Detected St Y.enterocolitica PCR Not Detected Stool Vibrio (PCR) Not Detected Stl Vibrio cholerae PCR Not Detected Stl Norovirus GI/GII PCR Not Detected O & P Trichrome Stain 12/08/24 12/08/24 12/08/24 14:20 16:20 Unknown MCV MCH MCHC RDW Plt Count MPV Immature Gran % (Auto) Neut % (Auto) Lymph % (Auto) [place] % (Auto) Eos % (Auto) Baso % (Auto) Lymph # (Auto) [place] # (Auto) Eos # (Auto) Baso # (Auto) Abs Immat Gran (auto) Absolute Neuts (auto) Absolute Nucleated RBC Nucleated RBC % (auto) Anion Gap Estim Creat Clear Calc Estimated GFR POC Glucose 157 H Random Glucose Calcium Magnesium C-Reactive Protein Urine Color Yellow Urine Appearance Cloudy Urine pH 5.5 Ur Specific [place] >= 1.030 H Urine Protein 30 (1+) H Urine Glucose (UA) 250 H Urine Ketones Negative Urine Blood Negative Urine Nitrite Negative Ur Leukocyte Esterase Moderate (2+) H Urine RBC 0-2 Urine WBC >50 H Ur Squamous Epith Cells 3-5 Other Crystals Present Urine Bacteria None Seen Hyaline Casts 0-2 Urine Yeast Present Stl C. cayetanensis PCR Stool Rotavirus A PCR Stl Adenov F PCR Stool Astrovirus (PCR) Stool Campylobacter PCR Stool Cryptosporidium PCR Stl Sh Tox Pr E STEC PCR Stool E coli O157 PCR Stl Enterotoxigenic E PCR Stool EPEC (PCR) Stool EAEC (PCR) Stl E. histolytica PCR Stool Giardia Lamblia PCR Stl P. shigelloides PCR Stool Salmonella PCR Stool Sapovirus (PCR) Stl Shigella/EIEC PCR St Y.enterocolitica PCR Stool Vibrio (PCR) Stl Vibrio cholerae PCR Stl Norovirus GI/GII PCR O & P Trichrome Stain Cancelled 12/09/24 06:25 MCV 89.4 MCH 30.0 MCHC 33.5 RDW 13.3 Plt Count 175 MPV 10.7 Immature Gran % (Auto) 0.2 Neut % (Auto) 49.0 Lymph % (Auto) 35.6 [place] % (Auto) 11.8 H Eos % (Auto) 2.9 Baso % (Auto) 0.5 Lymph # (Auto) 1.6 [place] # (Auto) 0.5 Eos # (Auto) 0.1 Baso # (Auto) 0.0 Abs Immat Gran (auto) 0.01 Absolute Neuts (auto) 2.2 Absolute Nucleated RBC 0.000 Nucleated RBC % (auto) 0.0 Anion Gap 12 Estim Creat Clear Calc 46.9 Estimated GFR > 60 POC Glucose Random Glucose 112 Calcium 8.3 L D Magnesium 1.5 L C-Reactive Protein 3.19 H Urine Color Urine Appearance Urine pH Ur Specific [place] Urine Protein Urine Glucose (UA) Urine Ketones Urine Blood Urine Nitrite Ur Leukocyte Esterase Urine RBC Urine WBC Ur Squamous Epith Cells Other Crystals Urine Bacteria Hyaline Casts Urine Yeast Stl C. cayetanensis PCR Stool Rotavirus A PCR Stl Adenov F 40/41 PCR Stool Astrovirus (PCR) Stool Campylobacter PCR Stool Cryptosporidium PCR Stl Sh Tox Pr E STEC PCR Stool E coli O157 PCR Stl Enterotoxigenic E PCR Stool EPEC (PCR) Stool EAEC (PCR) Stl E. histolytica PCR Stool Giardia Lamblia PCR Stl P. shigelloides PCR Stool Salmonella PCR Stool Sapovirus (PCR) Stl Shigella/EIEC PCR St Y.enterocolitica PCR Stool Vibrio (PCR) Stl Vibrio cholerae PCR Stl Norovirus GI/GII PCR O & P Trichrome Stain Microbiology Microbiology Results: Microbiology 12/08/24 01:34 Blood Culture - Preliminary Blood - Venous No growth after 24 hours. 12/08/24 01:34 Blood Culture - Preliminary Blood - Venous No growth after 24 hours. Assessment and Plan (1) Colitis: Status: Acute Plan d2, 79yo M with dementia, hypothyroidism, DM2, HTN presenting to ED for 2nd time in 24h with A/C diarrhea pancolitis of uncertain etiology (inf vs inflammatory, less likey ishemic), resolving with IV abx and loperamide Cdiff & repeat GI panel -ve, Stool testing - ve , prn loperamide, clear liquid diet, 12/08- piperacillin-tazobactam, IV fluids GI consulted - parasitology and stool white blood cells , not a candidate for invasive procedures given age and medical comorbidities (risks outweigh benefits and son HCP agreeable) dementia: donepezil, memantine hypothyroidism: continue LT4 DM2: hold MTF, give demian-dose lispro HTN: losartan, hydralazine, amlodipine VTE ppx: UFH dispo: TBD In my clinical judgment, the patient requires continued inpatient hospitalization for the following reasons: ongoing IV abx, ongoing GI workup Total time managing care of this patient today: 35 minutes. Quality Stroke Does the patient have a stroke diagnosis?: No VTE Prior VTE?: No VTE Risk Level:: Medical - moderate - high VTE Device Contraindication: Treatment Not Indicated VTE Drug Contraindication: N/A - Med Ordered
[2024-12-09 07:58] LABS: Glucose, Whole Blood 105 mg/dL (60-115)
[2024-12-09 08:00] VITALS: BP 117/58; PULSE 80; RESP 14; TEMP 37; O2SAT 93
--- NOTE | 2024-12-09 11:08 | MHC.CM.PN ---
Addendum entered by Lisa Rodriguez RN 12/09/24 11:10: IMM delivered. Original Note: CM met with patient and son at bedside, gas turbine assembler assisting. Patient sleeping, all questions answered by sonCurtis. Lives in a home w/ son who is his inspector timers (unpaid) converting technician. No formal services. Ambulates w/out AD's. Son assists w/ dressing and all iADL's. PCP Raina Guan MD No HCP. CM will attempt when patient is awake. DP: Home, resume family support, ? need for new VNA, preference to [facility]. Son will transport. CM will continue to follow.
[2024-12-09 12:01] LABS: Glucose, Whole Blood 158 mg/dL (60-115)
[2024-12-09 15:39] VITALS: BP 126/61; PULSE 76; RESP 18; TEMP 36.2; O2SAT 94
[2024-12-09 16:28] LABS: Glucose, Whole Blood 177 mg/dL (60-115)
--- NOTE | 2024-12-09 18:17 | PM.GIPN ---
Subjective Subjective Date of Service: 12/09/24 Interval History: resting comfortably Critical Care Time (minutes): 0 Physical Exam Vital Signs: Vital Signs: Last Vital Signs Temp 97.1 F 12/09/24 15:39 Pulse 76 12/09/24 15:39 Resp 18 12/09/24 15:39 BP 126/61 12/09/24 15:39 Pulse Ox 94 12/09/24 15:39 O2 Del Method Room Air 12/09/24 15:39 BMI result Body Mass Index 23.2 GI: Other: abdomen is soft and nontender Objective Data Labs 12/09/24 06:25 12/09/24 06:25 Labs: Laboratory Results - last 24 hr 12/08/24 12/09/24 12/09/24 14:20 06:25 07:39 WBC 4.4 L RBC 3.67 L Hgb 11.0 L Hct 32.8 L MCV 89.4 MCH 30.0 MCHC 33.5 RDW 13.3 Plt Count 175 MPV 10.7 Immature Gran % (Auto) 0.2 Neut % (Auto) 49.0 Lymph % (Auto) 35.6 [place] % (Auto) 11.8 H Eos % (Auto) 2.9 Baso % (Auto) 0.5 Lymph # (Auto) 1.6 [place] # (Auto) 0.5 Eos # (Auto) 0.1 Baso # (Auto) 0.0 Abs Immat Gran (auto) 0.01 Absolute Neuts (auto) 2.2 Absolute Nucleated RBC 0.000 Nucleated RBC % (auto) 0.0 Sodium 142 Potassium 3.3 Chloride 108 Carbon Dioxide 25 Anion Gap 12 BUN 15 Creatinine 1.01 Estim Creat Clear Calc 46.9 Estimated GFR > 60 POC Glucose 105 Random Glucose 112 Calcium 8.3 L D Magnesium 1.5 L C-Reactive Protein 3.19 H O & P Trichrome Stain Cancelled 12/09/24 12/09/24 11:54 16:21 WBC RBC Hgb Hct MCV MCH MCHC RDW Plt Count MPV Immature Gran % (Auto) Neut % (Auto) Lymph % (Auto) [place] % (Auto) Eos % (Auto) Baso % (Auto) Lymph # (Auto) [place] # (Auto) Eos # (Auto) Baso # (Auto) Abs Immat Gran (auto) Absolute Neuts (auto) Absolute Nucleated RBC Nucleated RBC % (auto) Sodium Potassium Chloride Carbon Dioxide Anion Gap BUN Creatinine Estim Creat Clear Calc Estimated GFR POC Glucose 158 H 177 H Random Glucose Calcium Magnesium C-Reactive Protein O & P Trichrome Stain Microbiology Microbiology Results: Microbiology 12/08/24 01:34 Blood - Venous Blood Culture - Preliminary No growth after 24 hours. 12/08/24 01:34 Blood - Venous Blood Culture - Preliminary No growth after 24 hours. Procedures Date of Service Date of Service: 12/09/24 Progress Note: A&P Assessment and plan (1) Colitis: Status: Acute Assessment and Plan: appears improved discussed clinical course with pt and son ok to use imodium pt and son wish to avoid colonoscopy. Time Spent With Patient Time: Total time managing care of this patient today ____ minutes. Quality Stroke Does the patient have a stroke diagnosis?: No VTE Prior VTE?: No VTE Risk Level:: Medical - moderate - high VTE Device Contraindication: Treatment Not Indicated VTE Drug Contraindication: N/A - Med Ordered
[2024-12-09 19:11] VITALS: BP 136/61; PULSE 74; RESP 16; TEMP 36.2; O2SAT 96
[2024-12-09 20:23] LABS: Glucose, Whole Blood 185 mg/dL (60-115)
[2024-12-09] MEDS: 0.9 % Sodium Chloride Flush 3 ML SYRINGE IVFLUSH (21:24)
[2024-12-10 03:13] VITALS: BP 133/59; PULSE 70; RESP 15; TEMP 36.1; O2SAT 96
[2024-12-10 05:30] LABS: MANUAL DIFF FLAG NO
[2024-12-10 05:32] LABS: Hematocrit 32.7 % (42.0-52.0); Hemoglobin 10.9 g/dl (14.0-18.0); Imm Gran Abs Auto 0.02 X10*3/uL (0.00-0.03); Imm Gran Pct Auto 0.5 % (0.0-0.4); Lymphocytes Absolute Auto 1.4 X10*3/uL (1.2-4.9); Mean Corpuscular HGB Conc 33.3 g/dl (31.0-36.0); Mean Corpuscular Hemoglobin 29.8 pg (27.0-33.0); Mean Corpuscular Volume 89.3 fL (80.0-98.0); NRBC Abs Auto 0.000 X10*3/uL (0.0-0.012); NRBC Pct Auto 0.0 /100WBC (0.0-0.2); Platelet Count 181 X10*3/uL (160-400); Red Blood Count 3.66 X10*6/uL (4.60-5.80); White Blood Count 4.3 X10*3/uL (4.8-10.8)
[2024-12-10 05:45] LABS: Anion Gap 13 (12-20); Blood Urea Nitrogen 11 mg/dL (9-16); Calcium 8.4 mg/dL (8.4-10.2); Carbon Dioxide 25 mmol/L (22-29); Chloride 109 mmol/L (96-108); Creatinine Clr Calc Pharmacy 42.3; Estimated Glomerular Filt Rate > 60; Magnesium 1.8 mg/dL (1.6-2.6); Potassium 3.5 mmol/L (3.3-5.1); Sodium 143 mmol/L (135-145)
--- NOTE | 2024-12-10 07:16 | P.PNIM_ITS ---
Subjective Subjective Date of Service: 12/10/24 Interval History: Patient appears to have 7 documented bowel movements overnight Granddaughter at the bedside Approach code status with the granddaughter as a re etcher with the son-is resting full code We will continue rehab placement Patient not a candidate for colonoscopy per GI Review of Systems Review of Systems: Yes all other systems are reviewed and are negative Physical Exam 2 Exam: Exam: General: AOx3, , frail, not in acute distress Resp: CTA bilaterally CVS: S1, S2, RRR GI: NT, protuberant, sluggish bowel sounds Neuro: Motor grossly intact at baseline-mostly bed-bound Patient has baseline dementia Vital Signs: Vital Signs: Last Vital Signs Temp 96.9 F 12/10/24 03:13 Pulse 70 12/10/24 03:13 Resp 15 12/10/24 03:13 BP 133/59 L 12/10/24 03:13 Pulse Ox 96 12/10/24 03:13 O2 Del Method Room Air 12/09/24 19:11 BMI result Body Mass Index 23.2 Objective Data Active Medications Acetaminophen (Acetaminophen 325 Mg Tablet) 975 mg PO Q6H PRN PRN Reason: Pain, Mild 1-3,fever,headache Amlodipine Besylate (Amlodipine Besylate 5 Mg Tablet) 5 mg PO DAILY@1700 [facility]; Protocol Last Admin: 12/09/24 17:17 Dose: 5 mg Documented By: LANE Atorvastatin Calcium (Atorvastatin Calcium 40 Mg Tablet) 40 mg PO BEDTIME [facility] Last Admin: 12/09/24 20:30 Dose: 40 mg Documented By: FREDRICK Calcium Carbonate (Calcium Carbonate 750 Mg Tab.Chew) 750 mg PO Q4H PRN PRN Reason: Heartburn Dextrose (Dextrose 50 % 25 Gm/50 Ml Syringe) 25 gm IVPUSH Q15M PRN; Protocol PRN Reason: per Hypoglycemia Standing Ord. Donepezil HCl (Donepezil Hcl 10 Mg Tablet) 10 mg PO DAILY [facility] Last Admin: 12/09/24 08:40 Dose: 10 mg Documented By: SAUMYA Glucose (Glucose Gel 15 Gm Gel..Gram.) 15 gm PO Q15M PRN; Protocol PRN Reason: per Hypoglycemia Standing Ord. Heparin Sodium (Porcine) (Heparin Sodium,Porcine 5,000 Unit/Ml Vial) 5,000 unit SUBCUT 0900,2100 [facility] Last Admin: 12/09/24 20:30 Dose: 5,000 unit Documented By: FREDRICK Hydralazine HCl (Hydralazine Hcl 25 Mg Tablet) 25 mg PO BID [facility]; Protocol Last Admin: 12/09/24 20:30 Dose: 25 mg Documented By: FREDRICK Piperacillin Sod/Tazobactam (Sod 3.375 gm/ Sodium Chloride) 50 mls @ 100 mls/hr IV Q6H [facility] Last Infusion: 12/10/24 03:14 Dose: Infused Documented By: FREDRICK Insulin Human Lispro (Insulin Lispro 100 Unit/Ml 3 Ml Vial) 0 unit SUBCUT QIDACHS [facility]; Protocol Last Admin: 12/09/24 20:31 Dose: 2 unit Documented By: FREDRICK Levothyroxine Sodium (Levothyroxine Sodium 112 Mcg Tablet) 112 mcg PO DAILY@0600 [facility] Last Admin: 12/10/24 06:17 Dose: Not Given Documented By: FREDRICK Non-Admin Reason: Patient Refused Loperamide HCl (Loperamide Hcl 2 Mg Capsule) 2 mg PO Q4H PRN PRN Reason: Diarrhea Losartan Potassium (Losartan Potassium 50 Mg Tablet) 100 mg PO DAILY [facility]; Protocol Last Admin: 12/09/24 08:40 Dose: 100 mg Documented By: SAUMYA Magnesium Hydroxide (Milk Of Magnesia 30 Ml Oral.Susp) 30 ml PO DAILY PRN PRN Reason: Constipation Melatonin (Melatonin 3 Mg Tablet) 6 mg PO BEDTIME PRN PRN Reason: Insomnia Memantine (Memantine Hcl 5 Mg Tablet) 5 mg PO BEDTIME [facility] Last Admin: 12/09/24 20:30 Dose: 5 mg Documented By: FREDRICK Ondansetron HCl (Ondansetron Hcl 4 Mg/2 Ml Vial) 4 mg IVPUSH Q8H PRN PRN Reason: Nausea and Vomiting Oxycodone HCl (Oxycodone Hcl Immed Release 5 Mg Tablet) 5 mg PO Q6H PRN PRN Reason: Pain, Severe (Pain Scale 7-10) Last Admin: 12/08/24 19:43 Dose: 5 mg Documented By: FREDRICK Quetiapine Fumarate (Quetiapine Fumarate 200 Mg Tablet) 200 mg PO BEDTIME [facility] Last Admin: 12/09/24 20:30 Dose: 200 mg Documented By: FREDRICK Sodium Chloride (0.9 % Sodium Chloride Flush 3 Ml Syringe) 3 ml IVFLUSH QSHIFT [facility] Last Admin: 12/09/24 21:24 Dose: 3 ml Documented By: JUAN Tramadol HCl (Tramadol Hcl 50 Mg Tablet) 50 mg PO Q6H PRN PRN Reason: Pain, Moderate(Pain Scale 4-6) Labs 12/10/24 05:15 12/10/24 05:15 Labs: Laboratory Results - last 24 hr 12/08/24 12/09/24 12/09/24 14:20 07:39 11:54 MCV MCH MCHC RDW Plt Count MPV Immature Gran % (Auto) Neut % (Auto) Lymph % (Auto) [place] % (Auto) Eos % (Auto) Baso % (Auto) Lymph # (Auto) [place] # (Auto) Eos # (Auto) Baso # (Auto) Abs Immat Gran (auto) Absolute Neuts (auto) Absolute Nucleated RBC Nucleated RBC % (auto) Anion Gap Estim Creat Clear Calc Estimated GFR POC Glucose 105 158 H Random Glucose Calcium Magnesium O & P Trichrome Stain Cancelled 12/09/24 12/09/24 12/10/24 16:21 20:10 05:15 MCV 89.3 MCH 29.8 MCHC 33.3 RDW 13.2 Plt Count 181 MPV 10.7 Immature Gran % (Auto) 0.5 H Neut % (Auto) 49.9 Lymph % (Auto) 33.5 [place] % (Auto) 11.9 H Eos % (Auto) 3.5 Baso % (Auto) 0.7 Lymph # (Auto) 1.4 [place] # (Auto) 0.5 Eos # (Auto) 0.2 Baso # (Auto) 0.0 Abs Immat Gran (auto) 0.02 Absolute Neuts (auto) 2.1 Absolute Nucleated RBC 0.000 Nucleated RBC % (auto) 0.0 Anion Gap 13 Estim Creat Clear Calc 42.3 Estimated GFR > 60 POC Glucose 177 H 185 H Random Glucose 244 H Calcium 8.4 Magnesium 1.8 O & P Trichrome Stain Microbiology Microbiology Results: Microbiology 12/08/24 01:34 Blood Culture - Preliminary Blood - Venous No growth after 48 hours. 12/08/24 01:34 Blood Culture - Preliminary Blood - Venous No growth after 48 hours. Assessment and Plan (1) Colitis: Status: Acute Plan d2, 79yo M with dementia, hypothyroidism, DM2, HTN presenting to ED for 2nd time in 24h with A/C diarrhea pancolitis of uncertain etiology (inf vs inflammatory, less likey ishemic), resolving with IV abx and loperamide -we will continue Cdiff & repeat GI panel -ve, Stool testing - ve , prn loperamide, clear liquid diet, 12/08- piperacillin-tazobactam, IV fluids GI consulted - parasitology and stool white blood cells , not a candidate for invasive procedures given age and medical comorbidities (risks outweigh benefits and son HCP agreeable) dementia: donepezil, memantine hypothyroidism: continue LT4 DM2: hold MTF, give demian-dose lispro HTN: losartan, hydralazine, amlodipine VTE ppx: UFH dispo: PT/OT, STR vs home with VNA In my clinical judgment, the patient requires continued inpatient hospitalization for the following reasons: ongoing IV abx, ongoing GI workup, placement (regualr services will resume tomorrow) This note is constructed using voice recognition software. While every effort has been made to ensure accuracy, chest painting and sealing supervisor errors may have been included. Total time managing care of this patient today: 35 minutes. Quality Stroke Does the patient have a stroke diagnosis?: No VTE Prior VTE?: No VTE Risk Level:: Medical - moderate - high VTE Device Contraindication: Treatment Not Indicated VTE Drug Contraindication: N/A - Med Ordered
[2024-12-10 07:34] LABS: Glucose, Whole Blood 220 mg/dL (60-115)
[2024-12-10 07:40] VITALS: BP 149/71; PULSE 68; RESP 18; TEMP 36.8; O2SAT 97
[2024-12-10] MEDS: 0.9 % Sodium Chloride Flush 3 ML SYRINGE IVFLUSH ×3 (07:43→20:19)
[2024-12-10 11:36] LABS: Glucose, Whole Blood 166 mg/dL (60-115)
[2024-12-10 15:34] LABS: Glucose, Whole Blood 377 mg/dL (60-115)
[2024-12-10 15:37] VITALS: BP 135/61; PULSE 82; RESP 18; TEMP 36.4; O2SAT 95
[2024-12-10 16:14] LABS: Glucose, Whole Blood 336 mg/dL (60-115)
[2024-12-10 19:29] VITALS: BP 127/60; PULSE 71; RESP 18; TEMP 36.5; O2SAT 95
[2024-12-10 19:54] LABS: Glucose, Whole Blood 66 mg/dL (60-115)
[2024-12-11 03:18] VITALS: BP 126/60; PULSE 74; RESP 18; TEMP 36.7; O2SAT 95
[2024-12-11 06:18] LABS: Glucose, Whole Blood 174 mg/dL (60-115)
--- NOTE | 2024-12-11 07:19 | HO.PM.IMPN ---
Subjective Subjective Date of Service: 12/11/24 Physical Exam Vital Signs: Vital Signs: Last Vital Signs Temp 98.0 F 12/11/24 03:18 Pulse 74 12/11/24 03:18 Resp 18 12/11/24 03:18 BP 126/60 12/11/24 03:18 Pulse Ox 95 12/11/24 03:18 O2 Del Method Room Air 12/11/24 03:18 BMI result Body Mass Index 23.2 Objective Data Active Medications Acetaminophen (Acetaminophen 325 Mg Tablet) 975 mg PO Q6H PRN PRN Reason: Pain, Mild 1-3,fever,headache Amlodipine Besylate (Amlodipine Besylate 5 Mg Tablet) 5 mg PO DAILY@1700 [facility]; Protocol Last Admin: 12/10/24 16:07 Dose: 5 mg Documented By: LEOBARDO Atorvastatin Calcium (Atorvastatin Calcium 40 Mg Tablet) 40 mg PO BEDTIME [facility] Last Admin: 12/10/24 20:16 Dose: 40 mg Documented By: JOSE CARLOS Calcium Carbonate (Calcium Carbonate 750 Mg Tab.Chew) 750 mg PO Q4H PRN PRN Reason: Heartburn Dextrose (Dextrose 50 % 25 Gm/50 Ml Syringe) 25 gm IVPUSH Q15M PRN; Protocol PRN Reason: per Hypoglycemia Standing Ord. Donepezil HCl (Donepezil Hcl 10 Mg Tablet) 10 mg PO DAILY [facility] Last Admin: 12/10/24 08:34 Dose: 10 mg Documented By: LEOBARDO Glucose (Glucose Gel 15 Gm Gel..Gram.) 15 gm PO Q15M PRN; Protocol PRN Reason: per Hypoglycemia Standing Ord. Heparin Sodium (Porcine) (Heparin Sodium,Porcine 5,000 Unit/Ml Vial) 5,000 unit SUBCUT 0900,2100 [facility] Last Admin: 12/10/24 20:16 Dose: 5,000 unit Documented By: JOSE CARLOS Hydralazine HCl (Hydralazine Hcl 25 Mg Tablet) 25 mg PO BID [facility]; Protocol Last Admin: 12/10/24 20:16 Dose: 25 mg Documented By: JOSE CARLOS Piperacillin Sod/Tazobactam (Sod 3.375 gm/ Sodium Chloride) 50 mls @ 100 mls/hr IV Q6H [facility] Last Infusion: 12/11/24 03:36 Dose: Infused Documented By: JOSE CARLOS Insulin Human Lispro (Insulin Lispro 100 Unit/Ml 3 Ml Vial) 0 unit SUBCUT QIDACHS [facility]; Protocol Last Admin: 12/10/24 20:22 Dose: Not Given Documented By: JOSE CARLOS Non-Admin Reason: No Insulin Coverage Levothyroxine Sodium (Levothyroxine Sodium 112 Mcg Tablet) 112 mcg PO DAILY@0600 [facility] Last Admin: 12/11/24 05:56 Dose: 112 mcg Documented By: JOSE CARLOS Loperamide HCl (Loperamide Hcl 2 Mg Capsule) 2 mg PO Q4H PRN PRN Reason: Diarrhea Losartan Potassium (Losartan Potassium 50 Mg Tablet) 100 mg PO DAILY [facility]; Protocol Last Admin: 12/10/24 08:34 Dose: 100 mg Documented By: COLBURCarlota Magnesium Hydroxide (Milk Of Magnesia 30 Ml Oral.Susp) 30 ml PO DAILY PRN PRN Reason: Constipation Melatonin (Melatonin 3 Mg Tablet) 6 mg PO BEDTIME PRN PRN Reason: Insomnia Last Admin: 12/10/24 22:36 Dose: 6 mg Documented By: JOSE CARLOS Memantine (Memantine Hcl 5 Mg Tablet) 5 mg PO BEDTIME [facility] Last Admin: 12/10/24 20:16 Dose: 5 mg Documented By: JOSE CARLOS Ondansetron HCl (Ondansetron Hcl 4 Mg/2 Ml Vial) 4 mg IVPUSH Q8H PRN PRN Reason: Nausea and Vomiting Oxycodone HCl (Oxycodone Hcl Immed Release 5 Mg Tablet) 5 mg PO Q6H PRN PRN Reason: Pain, Severe (Pain Scale 7-10) Last Admin: 12/08/24 19:43 Dose: 5 mg Documented By: FREDRICK Quetiapine Fumarate (Quetiapine Fumarate 200 Mg Tablet) 200 mg PO BEDTIME [facility] Last Admin: 12/10/24 20:16 Dose: 200 mg Documented By: JOSE CARLOS Sodium Chloride (0.9 % Sodium Chloride Flush 3 Ml Syringe) [facility] Last Admin: 12/10/24 20:19 Dose: 3 ml Documented By: JOSE CARLOS Tramadol HCl (Tramadol Hcl 50 Mg Tablet) 50 mg PO Q6H PRN PRN Reason: Pain, Moderate(Pain Scale 4-6) Labs 12/10/24 05:15 12/10/24 05:15 Labs: Laboratory Results - last 24 hr 12/10/24 12/10/24 12/10/24 07:31 11:22 15:26 POC Glucose 220 H 166 H 377 H* 12/10/24 12/10/24 12/11/24 16:05 19:50 06:15 POC Glucose 336 H 66 174 H Microbiology Microbiology Results: Microbiology 12/08/24 Unknown Urine Culture - Final Urine clean catch 12/08/24 01:34 Blood Culture - Preliminary Blood - Venous No growth after 48 hours. 12/08/24 01:34 Blood Culture - Preliminary Blood - Venous No growth after 48 hours. Quality Stroke Does the patient have a stroke diagnosis?: No VTE Prior VTE?: No VTE Risk Level:: Medical - moderate - high VTE Device Contraindication: Treatment Not Indicated VTE Drug Contraindication: N/A - Med Ordered
[2024-12-11 07:40] LABS: Glucose, Whole Blood 168 mg/dL (60-115)
[2024-12-11 07:42] VITALS: BP 125/65; PULSE 64; RESP 17; TEMP 36.8; O2SAT 94
[2024-12-11] MEDS: 0.9 % Sodium Chloride Flush 3 ML SYRINGE IVFLUSH (08:02)
[2024-12-11 08:58] LABS: MANUAL DIFF FLAG NO
[2024-12-11 09:16] LABS: Hematocrit 36.5 % (42.0-52.0); Hemoglobin 12.3 g/dl (14.0-18.0); Imm Gran Abs Auto 0.03 X10*3/uL (0.00-0.03); Imm Gran Pct Auto 0.6 % (0.0-0.4); Lymphocytes Absolute Auto 1.9 X10*3/uL (1.2-4.9); Mean Corpuscular HGB Conc 33.7 g/dl (31.0-36.0); Mean Corpuscular Hemoglobin 29.6 pg (27.0-33.0); Mean Corpuscular Volume 88.0 fL (80.0-98.0); NRBC Abs Auto 0.000 X10*3/uL (0.0-0.012); NRBC Pct Auto 0.0 /100WBC (0.0-0.2); Platelet Count 197 X10*3/uL (160-400); Red Blood Count 4.15 X10*6/uL (4.60-5.80); White Blood Count 5.0 X10*3/uL (4.8-10.8)
[2024-12-11 09:20] LABS: Alanine Aminotransferase 15 U/L (0-40); Albumin Level 3.5 g/dL (3.5-5.0); Alkaline Phosphatase 70 U/L (39-117); Anion Gap 15 (12-20); Aspartate Amino Transferase 24 U/L (5-37); Blood Urea Nitrogen 10 mg/dL (9-16); Calcium 8.7 mg/dL (8.4-10.2); Carbon Dioxide 25 mmol/L (22-29); Chloride 108 mmol/L (96-108); Creatinine Clr Calc Pharmacy 40.8; Estimated Glomerular Filt Rate > 60; Magnesium 1.8 mg/dL (1.6-2.6); Potassium 3.7 mmol/L (3.3-5.1); Sodium 144 mmol/L (135-145); Total Protein 5.7 g/dL (6.5-8.0)
--- NOTE | 2024-12-11 10:50 | P.CDIM_ITS ---
PROVIDER RESPONSE TEXT: To clarify, the appropriate diagnosis supported by the clinical indicators: Diabetes mellitus Type 2 with hyperglycemia: DM2 with hyperglycemia QUERY TEXT: PHYSICIAN'S DOCUMENTATION REQUEST Date of Query: 12/11/2024 10:09 AM EDT Patient Name: Curtis Goldman Admit Date: 12/08/2024 Dear Kim Gifford MD, A review of the medical record indicates additional documentation may be needed. Please review below and update the documentation accordingly. Clinical Indicators: LABS: POC glucose 377 H 336 H Insulin DM2 Please clarify the following regarding the Labs: Diabetes mellitus Type 2 with hyperglycemia resolved, possible, suspected etc. Other diagnosis Other (explain) Clinically unable to determine (explain) Thank you, Patricia Nguyen, CCS, CDIS Use of terms such as suspected, likely, concern for, or probable (associated with a specific diagnosis that is being evaluated, monitored, or treated as if it exists) are acceptable and can be coded in the inpatient setting, when documented at the time of discharge. Please use your independent medical judgment in providing your response. THIS QUERY IS PART OF THE PERMANENT MEDICAL RECORD
[2024-12-11 11:25] LABS: Glucose, Whole Blood 268 mg/dL (60-115)
[2024-12-11 12:35] LABS: Glucose, Whole Blood 113 mg/dL (60-115)
--- NOTE | 2024-12-11 12:41 | W.MHC.F2F ---
Service Date Service Date: 12/11/24 Encounter Date of encounter: 12/11/24 Reasons for Services Signs and symptoms assessed: assesed Reason for physical therapy: home safety and mobility and ADL training Reason for speech therapy: cognitive impairment Homebound: Leaving the home is medically contraindicated at this time without the asist of a device and/or another person due th the listed conditions above and below. Reason homebound: unsteady gait / fall risk, leg weakness and cognitively impaired / unsafe Certification: Based on the above findings, I certify that this patient is confined to the home and needs intermittent care home care, physical therapy and/or speech therapy, or continues to need occupational therapy. The patient is under my care, and I have initiated the establishment of the plan of care. The patient will be followed by a physician who will periodically review the plan of care. Time Spent With Patient Time: Total time managing care of this patient today ____ minutes.
--- NOTE | 2024-12-11 12:42 | W.MHC.ACPN ---
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 Updated MOLST in chart. 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 Infectious workup was essentially unrevealing. Over the course, we treated him with antibiotics even though workup thus far negative, given risks versus benefits. He has been treated with p.r.n. loperamide with good effect. Patient remained hemodynamically stable and continued to have occasional diarrhea. GI was consulted, and for multidisciplinary input, it was deemed that the patient is not a candidate for colonoscopy weighing risks versus benefits. Patient continued to have suboptimal p.o. intake, however family says that this is likely his baseline. Patient's family also did feel that he he would not have wanted life prolonging measures or being hooked to machines, code status changed to DNR DNI. Software Development Advisor used for the entire conversation. We have likely deemed his persistent diarrhea as non infectious enteritis secondary to viral and symptomatic management. Patient given advanced dementia, family believed that he would not do well with the rehab, hence we are discharging him home with VNA services. Problems Discussed (1) Colitis:
--- NOTE | 2024-12-11 12:54 | P.F2F_ITS ---
Service Date Service Date: 12/11/24 Encounter Date of encounter: 12/11/24 Reasons for Services Signs and symptoms assessed: See below Reason for group home: CV/CP assess and/or care, medication management and medication treatment Reason for physical therapy: home safety and mobility, therapeutic exercises, restore joint function, gait/transfer training, assess need for DME and ADL training Homebound: Leaving the home is medically contraindicated at this time without the asist of a device and/or another person due th the listed conditions above and below. Reason homebound: unsteady gait / fall risk, fall risk related to blood pressure changes, leg weakness and cognitively impaired / unsafe Certification: Based on the above findings, I certify that this patient is confined to the home and needs intermittent group home care, physical therapy and/or speech therapy, or continues to need occupational therapy. The patient is under my care, and I have initiated the establishment of the plan of care. The patient will be followed by a physician who will periodically review the plan of care. Time Spent With Patient Time: Total time managing care of this patient today ____ minutes.
--- NOTE | 2024-12-11 14:05 | MHC.CM.PN ---
Addendum entered by Isi Jaime 12/11/24 15:33: DP: PT WILL NOW GO HOME WITH [facility] THEY WILL BE ABLE TO SEE PT SOONER THAN [facility] FOR P.T. SERVICES. FAMILY MADE AWARE VIA ADULT MINISTRIES DIRECTOR AND ARE IN AGREEMENT WITH PLAN. [facility] NOTIFIED. Original Note: DP: PT HAS BEEN MEDICALLY CLEARED FOR DC HOME WITH NEW [facility] ([facility] CHO[facility]) FOR NURSING AND P.T. SERVICES. CM MET WITH PT/FAMILY WITH ADULT MINISTRIES DIRECTOR TO DISCUSS PLAN, ALL PARTIES IN AGREEMENT. FAMILY WILL TRANSPORT HOME AND [facility] NOTIFIED OF TODAY'S DC VIA [facility].
--- NOTE | 2024-12-11 14:13 | P.DS_ITS ---
DS: Providers Provider Date of Service: 12/11/24 Date of admission: 12/08/24 01:45 Date of discharge: 12/11/24 Primary care physician: Raina Guan MD Consults: 12/08/24 01:25 Consult to Gastroenterology Routine Consulting Provider: Pepito Mcfarland Reason for consultation: persistent diarrhea, colitis DS: Diagnosis Discharge Diagnosis (1) Colitis: Status: Acute DS: Summary Hospital Course Hospital Course: antique furniture reproducer was used for this entire conversation-with the son and [id number] over the phone. Updated MOLST in chart. 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 GI consulted - parasitology and stool white blood cells , not a candidate for invasive procedures given age and medical comorbidities (risks outweigh benefits and son HCP agreeable) Imaging and Infectious workup was essentially unrevealing. Over the course, we treated him with antibiotics 5 day course of broad-spectrum antibiotics, which GI input, even though workup thus far negative, given risks versus benefits. He has been treated with p.r.n. loperamide with good effect. Patient remained hemodynamically stable and continued to have occasional diarrhea. GI was consulted, and for multidisciplinary input, it was deemed that the patient is not a candidate for colonoscopy weighing risks versus benefits. Patient continued to have suboptimal p.o. intake, however family says that this is likely his baseline. Patient's family also did feel that he he would not have wanted life prolonging measures or being hooked to machines, code status changed to DNR DNI. Manager Developmental used for the entire conversation. Dementia-we continued his home donepezil and memantine Hypothyroidism we continued his home levothyroxine Diabetes we maintained with correction dose lispro, no changes made at the time of the discharge Hypotension continued losartan, hydralazine and amlodipine For VTE prophylaxis he was maintained on heparin We have likely deemed his persistent diarrhea as non infectious enteritis secondary to viral and symptomatic management. Patient given advanced dementia, family believed that he would not do well with the rehab, hence we are discharging him home with VNA services. This note is constructed using voice recognition software. While every effort has been made to ensure accuracy, tomato paste maker errors may have been included. Time spent discussing smoking cessation with patient: more than 10 minutes Status at Discharge Functional status at discharge: bed bound Overall status at discharge: patient is not back to baseline Time Attestation Discharge Coordination Time (in mins): 55 Quality: Safe Use of Opioids Does Pt have an Active Cancer Diagnosis on the Problem List?: No Quality: Stroke Does the patient have a stroke diagnosis?: No Physical Exam Vital Signs: Vital Signs: Last Vital Signs Temp 98.3 F 12/11/24 07:42 Pulse 64 12/11/24 07:42 Resp 17 12/11/24 07:42 BP 125/65 12/11/24 07:42 Pulse Ox 94 12/11/24 07:42 O2 Del Method Room Air 12/11/24 07:42 BMI result Body Mass Index 23.2 DS: Data Data Completed and Pending Labs on day of discharge: Laboratory Results - last 24 hr 12/08/24 12/10/24 12/10/24 20:20 15:26 16:05 WBC RBC Hgb Hct MCV MCH MCHC RDW Plt Count MPV Immature Gran % (Auto) Neut % (Auto) Lymph % (Auto) [place] % (Auto) Eos % (Auto) Baso % (Auto) Lymph # (Auto) [place] # (Auto) Eos # (Auto) Baso # (Auto) Abs Immat Gran (auto) Absolute Neuts (auto) Absolute Nucleated RBC Nucleated RBC % (auto) Sodium Potassium Chloride Carbon Dioxide Anion Gap BUN Creatinine Estim Creat Clear Calc Estimated GFR POC Glucose 113 377 H* 336 H Random Glucose Calcium Magnesium Total Bilirubin AST ALT Alkaline Phosphatase Total Protein Albumin 12/10/24 12/11/24 12/11/24 19:50 06:15 07:28 WBC RBC Hgb Hct MCV MCH MCHC RDW Plt Count MPV Immature Gran % (Auto) Neut % (Auto) Lymph % (Auto) [place] % (Auto) Eos % (Auto) Baso % (Auto) Lymph # (Auto) [place] # (Auto) Eos # (Auto) Baso # (Auto) Abs Immat Gran (auto) Absolute Neuts (auto) Absolute Nucleated RBC Nucleated RBC % (auto) Sodium Potassium Chloride Carbon Dioxide Anion Gap BUN Creatinine Estim Creat Clear Calc Estimated GFR POC Glucose 66 174 H 168 H Random Glucose Calcium Magnesium Total Bilirubin AST ALT Alkaline Phosphatase Total Protein Albumin 12/11/24 12/11/24 08:27 11:21 WBC 5.0 RBC 4.15 L Hgb 12.3 L Hct 36.5 L MCV 88.0 MCH 29.6 MCHC 33.7 RDW 13.2 Plt Count 197 MPV 11.0 Immature Gran % (Auto) 0.6 H Neut % (Auto) 48.1 Lymph % (Auto) 37.2 [place] % (Auto) 10.1 Eos % (Auto) 3.2 Baso % (Auto) 0.8 Lymph # (Auto) 1.9 [place] # (Auto) 0.5 Eos # (Auto) 0.2 Baso # (Auto) 0.0 Abs Immat Gran (auto) 0.03 Absolute Neuts (auto) 2.4 Absolute Nucleated RBC 0.000 Nucleated RBC % (auto) 0.0 Sodium 144 Potassium 3.7 Chloride 108 Carbon Dioxide 25 Anion Gap 15 BUN 10 Creatinine 1.16 Estim Creat Clear Calc 40.8 Estimated GFR > 60 POC Glucose 268 H Random Glucose 192 H Calcium 8.7 Magnesium 1.8 Total Bilirubin 1.6 H AST 24 ALT 15 Alkaline Phosphatase 70 Total Protein 5.7 L Albumin 3.5 Preliminary micro results at discharge 12/08/24 01:34 Blood Culture - Preliminary Blood - Venous No growth after 48 hours. 12/08/24 01:34 Blood Culture - Preliminary Blood - Venous No growth after 48 hours. Discharge Plan Discharge Anticipated Discharge Date/Time: 12/11/24 13:58 Patient Disposition: Home Health Service Discharge Diagnosis: Noninfectious diarrhea Referrals: Rebecca BALLARD [Outside] - 1 Week Referral Note: HOME SERVICES FOR NURSING HOME/PHYSICAL THERAPY- A NURSE WILL CALL YOU TO SET UP FIRST VISIT. Raina Guan MD [Primary Care Provider, Internal Medicine] - 1 Week Discharge Medications: New losartan 50 mg Tablet 100 mg PO DAILY 30 Days Qty: 60 3RF Protocol: Hold for SBP< HOLD for SBP < : 90 loperamide 2 mg Capsule 2 mg PO Q4H PRN (Reason: Diarrhea) 30 Days Qty: 3 3RF quetiapine 200 mg Tablet 200 mg PO BEDTIME 30 Days Qty: 30 3RF tramadol 50 mg Tablet 50 mg PO Q6H PRN (Reason: Pain, Moderate(Pain Scale 4-6)) 30 Days Qty: 30 3RF memantine 5 mg Tablet 5 mg PO BEDTIME 30 Days Qty: 30 3RF Continued atorvastatin 40 mg Tablet 40 mg PO DAILY hydralazine 25 mg Tablet 25 mg BID amlodipine 5 mg Tablet 5 mg PO DAILY@1700 levothyroxine 112 mcg tablet 112 mcg PO DAILY losartan 100 mg tablet 100 mg PO DAILY metformin 500 mg tablet 500 mg PO DAILY memantine 5 mg tablet 5 mg PO BEDTIME insulin glargine-yfgn [Semglee(insulin glarg-yfgn)Pen] 100 unit/mL (3 mL) insulin pen 40 unit subcut BEDTIME donepezil 10 mg tablet 10 mg PO DAILY Discharge Orders: Discharge Order (Routine); Ordered 12/11/24 Ordered By: Kim Gifford Diet: Low salt diet Activity on Discharge: Please refer to the [facility] Stand Alone Forms: Patient Portal Discharge page Print Language: Dutch Care Plan Goals: Adequate hydration quality of life None of the medications that I have prescribed above are new-this is just continuation of his home meds-it is reflecting as new medications P.r.n. loperamide as we do agree that based on his comorbid conditions, age, advanced dementia, requiring assistance in ADLs, feeding and toileting, son with the healthcare proxy, he is not a candidate for colonoscopy. For now they prefer that he be DNR DNI but would like any treatment that is potentially [id number] MOLST in the chart Health Concerns: See above Plan of Treatment: See above Assessment: See above
[2024-12-11 15:23] VITALS: BP 136/66; PULSE 64; RESP 18; TEMP 36.1; O2SAT 97
== END 2024-12-11 15:38 | disposition home health service (06) | DRG 392 ==
LOC: HO.ED 12-08 01:32 → HO.EDOVER 12-08 01:51 → HO.S3 12-08 02:20
PROVIDERS: Family Medicine; Admitting Provider Physician Assistant; Emergency Provider Emergency Medicine; PCP Internal Medicine; Visit Provider Student in an Organized Health Care Education/Training Program
DX: A08.4 Viral intestinal infection, unspecified (principal); I10 Essential (primary) hypertension; N40.1 Benign prostatic hyperplasia with lower urinary tract symptoms; E11.65 Type 2 diabetes mellitus with hyperglycemia; E03.9 Hypothyroidism, unspecified; F03.90 Unspecified dementia, unspecified severity, without behavioral disturbance, psychotic disturbance, mood disturbance, and anxiety; Z74.01 Bed confinement status; Z79.4 Long term (current) use of insulin; Z79.890 Hormone replacement therapy; Z79.899 Other long term (current) drug therapy
CPT/HCPCS: 36415; 74177; 80048; 80053; 80076; 81001; 82947; 83605; 83735; 85025; 85027; 86140; 87040; 87086; 87177; 87209; 87493; 87507; 99285; J1644; J2543; J3475; J7120; Q9967

== ENCOUNTER → 2024-12-07 23:06 | Outpatient (BNV) | payer MEDICARE, SELFPAY | PROVIDERS: Emergency Provider Emergency Medicine; PCP Internal Medicine; Visit Provider Specialist | DX: K80.20 Calculus of gallbladder without cholecystitis without obstruction (principal); N32.89 Other specified disorders of bladder | CPT/HCPCS: 74177 ==

== ENCOUNTER → 2024-12-08 01:45 | Outpatient (BNV) | payer MEDICARE, SELFPAY | PROVIDERS: Admitting Provider Physician Assistant; Emergency Provider Emergency Medicine; PCP Internal Medicine; Visit Provider Family Medicine | DX: K52.9 Noninfective gastroenteritis and colitis, unspecified (principal) | CPT/HCPCS: 99232 ==

== ENCOUNTER 2024-12-26 17:42 | Emergency (ER) | payer MEDICARE, SELFPAY ==
--- NOTE | ~2024-12-26 | CT_ITS ---
CLINICAL HISTORY: renaol colic? CT abdomen and pelvis without contrast Comparison: CT/SR - CT ABDOMEN PELVIS W IV CON - 12/07/24 23:28 EDT Findings: Limited evaluation without intravenous contrast. Mild bilateral basilar subsegmental atelectasis/scarring. No pleural effusion. There is cholelithiasis. No biliary ductal dilatation. Unenhanced liver, spleen and pancreas within normal limits. Adrenal glands are normal. No renal or ureteral stones and no hydronephrosis or hydroureter bilaterally. 1.3 cm right renal lower pole cyst. No bowel obstruction, pneumoperitoneum, or pneumatosis. Interval resolution of previously seen colitis. No free fluid. No definite loculated fluid collection. Normal appendix. Prostate is enlarged. Urinary bladder wall thickening. Atherosclerotic vascular disease with no aneurysm of abdominal aorta. No acute fracture. Multilevel degenerative changes of the spine and degenerative changes bilateral hips. IMPRESSION: 1. No acute findings. 2. No renal or ureteral stone. 3. : Pylorus and additional nonacute findings as described. This document has been electronically signed by: Jojo Belle MD on 12/26/2024 22:15:09
[2024-12-26 17:47] VITALS: BP 148/67; PULSE 88; RESP 18; TEMP 36.4; O2SAT 96; BMI 23.9
--- NOTE | 2024-12-26 17:47 | ED.GENADULT ---
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 Patient has with the his son who is at bedside. Patient had 6-7 episodes of diarrhea throughout the day. Denies abdominal pain, nausea, vomiting, fever. The patient is eating in the exam room. Denies recent antibiotics, or travel. The patient was recently admitted and found to have non infectious colitis, he was discharged 12/11. Related Data Home Medications ?Medication ?Instructions ?Recorded ?Confirmed donepezil 10 mg tablet 10 mg PO DAILY 10/22/24 12/08/24 amlodipine 5 mg tablet 5 mg PO DAILY@1700 12/08/24 12/08/24 atorvastatin 40 mg tablet 40 mg PO DAILY 12/08/24 12/08/24 hydralazine 25 mg tablet 25 mg BID 12/08/24 12/08/24 insulin glargine-yfgn 100 unit/mL 40 unit subcut BEDTIME 12/08/24 12/08/24 (3 mL) subcutaneous pen (Semglee (insulin glargine-yfgn) Pen) levothyroxine 112 mcg tablet 112 mcg PO DAILY 12/08/24 12/08/24 losartan 100 mg tablet 100 mg PO DAILY 12/08/24 12/08/24 memantine 5 mg tablet 5 mg PO BEDTIME 12/08/24 12/08/24 metformin 500 mg tablet 500 mg PO DAILY 12/08/24 12/08/24 Previous Rx's ?Medication ?Instructions ?Recorded loperamide 2 mg capsule 2 mg PO Q4H PRN Diarrhea 30 days 12/11/24 #3 caps losartan 50 mg tablet 100 mg PO DAILY 30 days #60 tabs 12/11/24 memantine 5 mg tablet 5 mg PO BEDTIME 30 days #30 tabs 12/11/24 quetiapine 200 mg tablet 200 mg PO BEDTIME 30 days #30 tabs 12/11/24 tramadol 50 mg tablet 50 mg PO Q6H PRN Pain, 12/11/24 Moderate(Pain Scale 4-6) 30 days #30 tabs loperamide 2 mg capsule 2 mg PO Q4H PRN loose stool #30 12/26/24 caps nitrofurantoin 100 mg PO Q12H 7 days #13 caps 12/26/24 monohydrate/macrocrystals 100 mg capsule (Macrobid) Allergies Allergy/AdvReac Type Severity Reaction Status Date / Time No Known Allergies Allergy Verified 12/26/24 17:53 Review of Systems Review of Systems: Unable to obtain secondary to dementia Yes all other systems are reviewed and are negative [facility] Past Medical History Attestation statement: The following information was validated with the patient. Medical History Dementia Diabetes mellitus type 2, controlled, without complications Hypertension associated with chronic kidney disease due to type 2 diabetes mellitus Social History Social History Household Members: Family Housing: House Do you presently have visiting nurse or other home services: No Comment: family at bedside. Patient Tobacco Use Status: Former Tobacco user service: No Physical Exam ED Vital Signs: Vital Signs - 24 hr 12/26/24 17:47 12/26/24 20:06 12/26/24 23:00 Temperature 97.5 F 97.9 F Pulse Rate 88 89 61 Respiratory Rate 18 16 16 Blood Pressure 148/67 H 152/76 H 152/73 H Pulse Oximetry 96 96 96 Oxygen Delivery Method Room Air Room Air Room Air 12/26/24 23:26 Temperature 97.9 F Pulse Rate 61 Respiratory Rate 16 Blood Pressure 152/73 H Pulse Oximetry 96 Oxygen Delivery Method Room Air BMI result Body Mass Index 23.9 Const Other: Alert well-appearing sitting up in bed eating Orientation/consciousness: oriented to person Resp Effort & Inspection: normal respiratory effort Cardio Other: Normal peripheral perfusion GI Other: Abdomen is soft, nondistended nontender no guarding Skin Other: Warm dry no rash Neuro General: oriented to person, gait normal, no focal motor deficits and CN's II-XI intact bilaterally Psych Other: Cooperative Course Course Course Narrative: 79 yo male presenting to the ED for diarrhea that started this morning. Having 7 episodes of liquid diarrhea. Admission recently for colitis which was treated with loperamide and antibiotic. Rapid medical screening exam was performed. Patient stable at time of evaluation. Cindi Kelly, 12/26/24 1748 Medications Administered Discontinued Medications Generic Name Dose Route Start Last Admin Trade Name Freq PRN Reason Stop Dose Admin Loperamide HCl 6 mg 12/26/24 17:54 12/26/24 18:18 Loperamide Hcl 2 Mg Capsule PO 12/26/24 17:55 6 mg ONCE ONE Administration Nitrofurantoin Macrocrystals 100 mg 12/26/24 22:46 12/26/24 22:59 Nitrofurantoin Monohyd/M-Cryst 100 Mg Capsule PO 12/26/24 22:47 100 mg ONCE ONE Administration Medical Decision Making Medical Decision Making MDM Narrative: 79-year-old Turkmen speaking male with a past medical history significant for advanced dementia, mostly bed-bound, 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 Patient has with the his son who is at bedside. Patient had 6-7 episodes of diarrhea throughout the day. Denies abdominal pain, nausea, vomiting, fever. The patient is eating in the exam room. Denies recent antibiotics, or travel. The patient was recently admitted and found to have non infectious colitis, he was discharged 12/11. Problem: Age, dementia, recent diagnosis of colitis, diabetes History: Per patient's son I have considered the following differential diagnoses: C diff, other infectious diarrhea, diverticulitis, colitis, viral syndrome Plan: Screening labs were obtained from triage, they are unremarkable, no leukocytosis. The patient has no belly pain, he has known colitis, this is a chronic condition, he had loperamide at the time of discharge which he has used, we will prescribe it again. At 1 point the patient was complaining of belly pain per the son, his urine is returning, he is passing hematuria, perhaps he has a kidney stone. The patient is not a reliable historian, ordering a non-con scan. During his hospital admission he was assessed for C diff, infectious diarrhea including ova and parasite. I have independently reviewed the following tests: Labs: No leukocytosis, not anemic, no electrolyte abnormality, questionable infection of the urine... We will place on a course of Macrobid CT abdomen and pelvis:MPRESSION: 1. No acute findings. 2. No renal or ureteral stone. 3. : Pylorus and additional nonacute findings as described. Differential Diagnosis Differential Diagnoses: The differential diagnosis associated with the presentation includes See medical decision-making Admission/Observation Consideration of admission/observation: Escalation of care including admission/observation considered Not applicable Lab Data MDM Lab Attestation statement: I reviewed the patient's lab results. 12/26/24 18:27 12/26/24 18:27 Labs: Lab Results 12/26/24 12/26/24 Range/Units 18:27 20:06 WBC 10.0 (4.8-10.8) X10*3/uL RBC 4.54 L (4.60-5.80) X10*6/uL Hgb 13.4 L (14.0-18.0) g/dl Hct 41.3 L (42.0-52.0) % MCV 91.0 (80.0-98.0) fL MCH 29.5 (27.0-33.0) pg MCHC 32.4 (31.0-36.0) g/dl RDW 13.4 (11.0-16.0) % Plt Count 269 D (160-400) X10*3/uL MPV 10.7 (9.4-12.4) fL Immature Gran % (Auto) 0.4 (0.0-0.4) % Neut % (Auto) 73.9 H (45-73) % Lymph % (Auto) 11.6 L (20-40) % [place] % (Auto) 12.6 H (2-11) % Eos % (Auto) 0.8 (0-4) % Baso % (Auto) 0.7 (0-2) % Lymph # (Auto) 1.2 (1.2-4.9) X10*3/uL [place] # (Auto) 1.3 H (0.1-1.2) X10*3/uL Eos # (Auto) 0.1 (0.0-0.4) X10*3/uL Baso # (Auto) 0.1 (0.0-0.2) X10*3/uL Abs Immat Gran (auto) 0.04 H (0.00-0.03) X10*3/uL Absolute Neuts (auto) 7.4 (2.0-8.3) x10*3/uL Absolute Nucleated RBC 0.000 (0.0-0.012) X10*3/uL Nucleated RBC % (auto) 0.0 (0.0-0.2) /100WBC Sodium 139 (135-145) mmol/L Potassium 4.2 (3.3-5.1) mmol/L Chloride 105 (96-108) mmol/L Carbon Dioxide 26 (22-29) mmol/L Anion Gap 12 (12-20) BUN 23 H (9-16) mg/dL Creatinine 1.13 (0.5-1.4) mg/dL Estim Creat Clear Calc 41.9 Estimated GFR > 60 Random Glucose 278 H (60-115) mg/dL Calcium 9.8 D (8.4-10.2) mg/dL Magnesium 1.7 (1.6-2.6) mg/dL Total Bilirubin 1.6 H (0.0-1.0) mg/dL AST 23 (5-37) U/L ALT 20 (0-40) U/L Alkaline Phosphatase 105 (39-117) U/L Total Protein 6.8 (6.5-8.0) g/dL Albumin 4.4 (3.5-5.0) g/dL Lipase 8 (8-78) U/L Urine Color Dark Yellow Urine Appearance Turbid Urine pH 5.0 (5.0-9.0) Ur Specific [place] >= 1.030 H (1.005-1.025) Urine Protein 30 (1+) H (Neg-Trace) mg/dL Urine Glucose (UA) >=1000 H (Negative) mg/dL Urine Ketones Trace (Negative) mg/dL Urine Blood Small (1+) H (Negative) Urine Nitrite Negative (Negative) Ur Leukocyte Esterase Moderate (2+) H (Negative) Urine RBC 3-5 H (0-2) /HPF Urine WBC >50 H (0-5) /HPF Ur Squamous Epith Cells 11-20 (0-2) /HPF Calcium Oxalate Crystal Present Urine Bacteria 2+ (None Seen) Hyaline Casts 11-20 (0-2) /LPF Urine Yeast Present Radiology Impression Discussion of test interpretation with radiology: I have reviewed the radiologist's reading. Discharge Plan Discharge Clinical Impression: Urinary tract infection, Diarrhea Patient Disposition: Home, Self-Care Instructions: Urinary Tract Infection in Men (ED), Colitis (ED) Additional Instructions: It is questionable that you have a urinary tract infection, we are placing you on an antibiotic called Macrobid, complete the course of the antibiotic. There were no acute findings on the CT scan, the remainder of your labs were normal. In regard to the diarrhea, you have colitis, you will have episodes of diarrhea from time to time. Use the loperamide as directed for diarrhea. Be sure to follow up with your primary care provider within a week. Prescriptions: New loperamide 2 mg capsule 2 mg PO Q4H PRN (Reason: loose stool) Qty: 30 0RF Rx Instructions: administer after each loose stool until symptoms controlled; do not exceed 8 mg per 24 hrs nitrofurantoin monohyd/m-cryst [Macrobid] 100 mg capsule 100 mg PO Q12H 7 Days Qty: 13 0RF Rx Instructions: must administer with a meal/food No Action atorvastatin 40 mg Tablet 40 mg PO DAILY hydralazine 25 mg Tablet 25 mg BID amlodipine 5 mg Tablet 5 mg PO DAILY@1700 levothyroxine 112 mcg tablet 112 mcg PO DAILY losartan 100 mg tablet 100 mg PO DAILY metformin 500 mg tablet 500 mg PO DAILY memantine 5 mg tablet 5 mg PO BEDTIME insulin glargine-yfgn [Semglee(insulin glarg-yfgn)Pen] 100 unit/mL (3 mL) insulin pen 40 unit subcut BEDTIME losartan 50 mg Tablet 100 mg PO DAILY 30 Days Qty: 60 3RF Protocol: Hold for SBP< HOLD for SBP < : 90 loperamide 2 mg Capsule 2 mg PO Q4H PRN (Reason: Diarrhea) 30 Days Qty: 3 3RF quetiapine 200 mg Tablet 200 mg PO BEDTIME 30 Days Qty: 30 3RF tramadol 50 mg Tablet 50 mg PO Q6H PRN (Reason: Pain, Moderate(Pain Scale 4-6)) 30 Days Qty: 30 3RF memantine 5 mg Tablet 5 mg PO BEDTIME 30 Days Qty: 30 3RF donepezil 10 mg tablet 10 mg PO DAILY Interventions: ED Discharge Assessment Last Done: 12/26/24 23:26 Discharge Date/Time: 12/26/24 23:28 Print Language: Turkmen
[2024-12-26 18:30] LABS: MANUAL DIFF FLAG NO
--- NOTE | 2024-12-26 18:30 | MHC.EDTECH ---
Patient is unable to give a urine sample at this time.
[2024-12-26 18:34] LABS: Hematocrit 41.3 % (42.0-52.0); Hemoglobin 13.4 g/dl (14.0-18.0); Imm Gran Abs Auto 0.04 X10*3/uL (0.00-0.03); Imm Gran Pct Auto 0.4 % (0.0-0.4); Lymphocytes Absolute Auto 1.2 X10*3/uL (1.2-4.9); Mean Corpuscular HGB Conc 32.4 g/dl (31.0-36.0); Mean Corpuscular Hemoglobin 29.5 pg (27.0-33.0); Mean Corpuscular Volume 91.0 fL (80.0-98.0); NRBC Abs Auto 0.000 X10*3/uL (0.0-0.012); NRBC Pct Auto 0.0 /100WBC (0.0-0.2); Platelet Count 269 X10*3/uL (160-400); Red Blood Count 4.54 X10*6/uL (4.60-5.80); White Blood Count 10.0 X10*3/uL (4.8-10.8)
[2024-12-26 18:49] LABS: Alanine Aminotransferase 20 U/L (0-40); Albumin Level 4.4 g/dL (3.5-5.0); Alkaline Phosphatase 105 U/L (39-117); Anion Gap 12 (12-20); Aspartate Amino Transferase 23 U/L (5-37); Blood Urea Nitrogen 23 mg/dL (9-16); Calcium 9.8 mg/dL (8.4-10.2); Carbon Dioxide 26 mmol/L (22-29); Chloride 105 mmol/L (96-108); Creatinine Clr Calc Pharmacy 41.9; Estimated Glomerular Filt Rate > 60; Lipase 8 U/L (8-78); Magnesium 1.7 mg/dL (1.6-2.6); Potassium 4.2 mmol/L (3.3-5.1); Sodium 139 mmol/L (135-145); Total Protein 6.8 g/dL (6.5-8.0)
[2024-12-26 20:06] VITALS: BP 152/76; PULSE 89; RESP 16; O2SAT 96
[2024-12-26 20:18] LABS: Appearance Urine Turbid; Glucose Urine UA >=1000 mg/dL (Negative); PH 5.0 (5.0-9.0); Specific Gravity - Urine >= 1.030 (1.005-1.025); UMIC TRIGGER UA YES
--- OUTSIDE RECORDS SUMMARY | 2024-12-26 20:25 | XMS_ITS | Clinical Summary ---
Author Organization [facility] Address [address] [place] [address] Phone Care Team Providers Care Machine Hand Name Role Phone Physician, No Pcp Primary Care Provider Unavaila ble Allergies No known active allergies Medications traZODone (DESYREL) 50 mg tablet Take 1 tablet (50 mg total) by mouth at bedtime. 30 each 10/16/2024 Active Active Problems No known active problems Encounters Date Type Department Care Team Description 10/15/2024 9:13 PM EDT - 10/16/2024 3:[address] [facility] Emergency [address] [place] [address] Kenton Ortiz MD Acute cystitis without hematuria (Primary Dx); Balanitis; Controlled type 2 diabetes mellitus with hyperglycemia, with long-term current use of insulin ([facility] V24, [facility] V28) Discharge Disposition: Home or Self Care [...] (Lipid Panel) 10/15/2024 Falls Risk Assessment 10/15/2024 Medicare Annual Wellness Visit 10/15/2024 Social [...] - 100 mg/dL 10/16/2024 1:00 AM EDT [facility] Blood Capillary blood specimen / Unknown 10/16/2024 12:59 AM EDT 10/16/2024 1:01 AM EDT us Kenton Ortiz MD LAB POINT OF CARE TEST DOCKED DEVICE UNSOLICITED RESULTS Final Result Performing Organization Address [facility] Co de Phone Number [facility] [address] [place] [address], [place] [phone] * (ABNORMAL) Lactate, with Reflex (10/15/2024 11:18 PM EDT) [facility] LACTIC ACID 2.3(H) 0.4 - 2.0 mmol/L LAB CHEMISTRY METHOD 10/15/2024 11:48 PM EDT [facility] Blood Venous blood specimen / Unknown Venipuncture / Unknown 10/15/2024 11:18 PM EDT 10/15/2024 11:25 PM EDT Kenton Ortiz MD LAB BLOOD ORDERABLES Connie l Result Performing Organization Address [facility]/ZIP Co de Phone Number [facility] [address] [place] [address], [place] [phone] * Blood Culture, Peripheral #2 (10/15/2024 11:18 PM EDT) Only the most recent of2 resultswithin the time period is included. Culture, Blood No growth at 5 days 10/21/2024 12:01 AM EDT [facility] Blood Venous blood specimen / Unknown Venipuncture / Unknown 10/15/2024 11:18 PM EDT 10/15/2024 11:25 PM EDT us Kenton Ortiz MD LAB MICROBIOLOGY - GENERA L ORDERABLES Final Result [facility] [address] [place] [address], [place] [phone] * (ABNORMAL) Urinalysis with reflex microscopic and culture (10/15/2024 6:30 PM EDT) Specific [place] Urine 1.039(H) 1.003 - 1.030 LAB URINALYSIS - AUTOMATED METHOD 10/15/2024 6:53 PM [facility] pH, Urine 5.5 5.0 - 8.0 pH LAB URINALYSIS - AUTOMATED METHOD 10/15/2024 6:53 PM [facility] Leukocytes, Urine Moderate(A) Negative LAB URINALYSIS - AUTOMATED METHOD 10/15/2024 6:53 PM [facility] Nitrite, Urine Negative Negative LAB URINALYSIS - AUTOMATED METHOD 10/15/2024 6:53 PM [facility] Protein, Urine 30(A) <=Trace mg/dL LAB URINALYSIS - AUTOMATED METHOD 10/15/2024 6:53 PM [facility] Glucose, Urine >=1000(A) Negative mg/dL LAB URINALYSIS - AUTOMATED METHOD 10/15/2024 6:53 PM [facility] Ketones, Urine Trace(A) Negative mg/dL LAB URINALYSIS - AUTOMATED METHOD 10/15/2024 6:53 PM [facility] Urobilinogen , Urine 1.0 0.2 - 1.0 mg/dL LAB URINALYSIS - AUTOMATED METHOD 10/15/2024 6:53 PM EDT [facility] Bilirubin, Urine Negative Negative LAB URINALYSIS - AUTOMATED METHOD 10/15/2024 6:53 PM EDT [facility] Blood, Urine Trace(A) Negative LAB URINALYSIS - AUTOMATED METHOD 10/15/2024 6:53 PM EDT [facility] RBC, Urine 2.2 0 - 4 /HPF LAB URINALYSIS - AUTOMATED METHOD 10/15/2024 6:53 PM EDT [facility] WBC, Urine 223.5(H) 0 - 4 /HPF LAB URINALYSIS - AUTOMATED METHOD 10/15/2024 6:53 PM EDT [facility] Squamous Epithelial, Urine 19 0 - 60 /LPF LAB URINALYSIS - AUTOMATED METHOD 10/15/2024 6:53 PM [facility] Bacteria, Urine Moderate(A) Negative /HPF LAB URINALYSIS - AUTOMATED METHOD 10/15/2024 6:53 [facility] Hyaline Casts, Urine 0.4 0 - 3 /LPF LAB URINALYSIS - AUTOMATED METHOD 10/15/2024 6:53 [facility] Urine Urine specimen obtained by clean catch procedure / Unknown Non-blood Collection / Unknown 10/15/2024 6:30 PM EDT 10/15/2024 6:40 PM EDT us Perla CHERRY LAB URINE ORDERABLES Fin al Result [facility] [address] [place] [address], * Couch urine culture tube (10/15/2024 6:30 PM EDT) Extra Tube Hold for add-ons. 10/15/2024 8:01 PM EDT [facility] Comment:Auto resulted. Urine Urine specimen obtained by clean catch procedure / Unknown Non-blood Collection / Unknown 10/15/2024 6:30 PM EDT 10/15/2024 6:40 PM EDT Perla CHERRY LAB URINE ORDERABLES Fin al Result [facility] [address] [place] [address], [place] [phone] * Culture urine (10/15/2024 6:30 PM EDT) Pathologist [facility] Culture, Urine >100,000 CFU/mL Mixed urogenital peter, no uropathogens present. Suggest repeat specimen if clinically indicated. 10/17/2024 10:33 AM EDT [facility] Urine Urine specimen obtained by clean catch procedure / Unknown Non-blood Collection / Unknown 10/15/2024 6:30 PM EDT 10/15/2024 6:53 PM EDT Perla CHERRY LAB MICROBIOLOGY - GENER AL ORDERABLES Final Result Performing Organization Address [facility]/ZIP Co de Phone Number [facility] [address] [place] [address], [place] [phone] * (ABNORMAL) CBC auto differential (10/15/2024 6:01 PM EDT) WBC 7.6 4.8 - 10.8 K/mcL LAB HEMETOLOGY METHOD 10/15/2024 6:41 PM EDT [facility] RBC 5.10 4.50 - 5.50 M/mcL LAB HEMETOLOGY METHOD 10/15/2024 6:41 PM EDT [facility] Hemoglobin 14.5 13.5 - 17.5 g/dL LAB HEMETOLOGY METHOD 10/15/2024 6:41 PM EDT [facility] Hematocrit 44.9 42.0 - 54.0 % LAB HEMETOLOGY METHOD 10/15/2024 6:41 PM EDT [facility] MCV 88.2 79.0 - 98.0 FL LAB HEMETOLOGY METHOD 10/15/2024 6:[facility] MCH 28.5 27.0 - 32.0 pcg LAB HEMETOLOGY METHOD 10/15/2024 6:41 PM [facility] MCHC 32.3 32.0 - 37.0 g/dL LAB HEMETOLOGY METHOD 10/15/2024 6:41 PM T [facility] RDW 12.6 11.0 - 15.0 % LAB HEMETOLOGY METHOD 10/15/2024 6:41 PM [facility] Platelets 231 130 - 400 K/mcL LAB HEMETOLOGY METHOD 10/15/2024 6:41 PM [facility] MPV 12.0(H) 7.0 - 11.0 FL LAB HEMETOLOGY METHOD 10/15/2024 6:41 PM [facility] NRBC 0.0 <1.0 % LAB HEMETOLOGY METHOD 10/15/2024 6:[facility] NRBC Absolute 0.00 <0.10 K/mcL LAB HEMETOLOGY METHOD 10/15/2024 6:41 PM [facility] Neutrophils Relative 69.0 % LAB HEMETOLOGY METHOD 10/15/2024 6:41 PM [facility] Lymphocytes Relative 21.7 % LAB HEMETOLOGY METHOD 10/15/2024 6:41 [facility] Monocytes Relative 7.8 % LAB HEMETOLOGY METHOD 10/15/2024 6:41 PM [facility] Eosinophils Relative 0.9 % LAB HEMETOLOGY METHOD 10/15/2024 6:41 PM [facility] Basophils Relative 0.1 % LAB HEMETOLOGY METHOD 10/15/2024 6:41 PM EDT [facility] Immature Granulocytes Relative 0.5 % LAB HEMETOLOGY METHOD 10/15/2024 6:41 PM EDT [facility] Neutrophils Absolute 5.24 1.50 - 7.00 K/mcL LAB HEMETOLOGY METHOD 10/15/2024 6:41 PM EDT [facility] Lymphocytes Absolute 1.65 1.00 - 5.00 K/mcL LAB HEMETOLOGY METHOD 10/15/2024 6:41 PM EDT [facility] Monocytes Absolute 0.59 0.20 - 1.00 K/mcL LAB HEMETOLOGY METHOD 10/15/2024 6:41 PM EDT [facility] Eosinophils Absolute 0.07 0.00 - 0.50 K/mcL LAB HEMETOLOGY METHOD 10/15/2024 6:41 PM EDT [facility] Basophils Absolute 0.01 0.00 - 0.20 K/mcL LAB HEMETOLOGY METHOD 10/15/2024 6:41 PM EDT [facility] Immature Granulocytes Absolute 0.04(H) 0.00 - 0.03 K/mcL LAB HEMETOLOGY METHOD 10/15/2024 6:41 PM EDT [facility] Blood Venous blood specimen / Unknown Venipuncture / Unknown 10/15/2024 6:01 PM EDT 10/15/2024 6:33 PM EDT us Perla CHERRY LAB BLOOD ORDERABLES Fin al Result [facility] [address] [place] [address], * Alanine aminotransferase (10/15/2024 6:01 PM EDT) ALT (SGPT) 42 10 - 60 unit/L LAB CHEMISTRY METHOD 10/15/2024 9:53 PM EDT [facility] Blood Venous blood specimen / Unknown Venipuncture / Unknown 10/15/2024 6:01 PM EDT 10/15/2024 6:33 PM EDT Kenton Ortiz MD LAB BLOOD ORDERABLES Connie l Result Performing Organization Address [facility]/ZIP Co de Phone Number [facility] [address] [place] [address], [place] [phone] * Aspartate aminotransferase (10/15/2024 6:01 PM EDT) AST (SGOT) 27 10 - 42 unit/L LAB CHEMISTRY METHOD 10/15/2024 9:53 PM EDT [facility] Blood Venous blood specimen / Unknown Venipuncture / Unknown 10/15/2024 6:01 PM EDT 10/15/2024 6:33 PM EDT Kenton Ortiz MD LAB BLOOD ORDERABLES Connie l Result Performing Organization Address [facility]/ZIP Co de Phone Number [facility] [address] [place] [address], [place] [phone] * (ABNORMAL) Alkaline phosphatase (10/15/2024 6:01 PM EDT) Alkaline Phosphatase 122(H) 42 - 121 unit/L LAB CHEMISTRY METHOD 10/15/2024 9:53 PM EDT [facility] Blood Venous blood specimen / Unknown Venipuncture / Unknown 10/15/2024 6:01 PM EDT 10/15/2024 6:33 PM EDT Kenton Ortiz MD LAB BLOOD ORDERABLES Connie l Result Performing Organization Address [facility]/ZIP Co de Phone Number [facility] [address] [place] [address], [place] [phone] * (ABNORMAL) Magnesium (10/15/2024 6:01 PM EDT) Magnesium 1.8(L) 1.9 - 2.6 mg/dL LAB CHEMISTRY METHOD 10/15/2024 7:01 PM EDT [facility] Blood Venous blood specimen / Unknown Venipuncture / Unknown 10/15/2024 6:01 PM EDT 10/15/2024 6:33 PM EDT Perla CHERRY LAB BLOOD ORDERABLES Fin al Result [facility] [address] [place] [address], [place] [phone] * Bilirubin, total (10/15/2024 6:01 PM EDT) Pathologist [facility] Total Bilirubin 1.3 0.0 - 1.4 mg/dL LAB CHEMISTRY METHOD 10/15/2024 9:52 PM EDT [facility] Blood Venous blood specimen / Unknown Venipuncture / Unknown 10/15/2024 6:01 PM EDT 10/15/2024 6:33 PM EDT Kenton Ortiz MD LAB BLOOD ORDERABLES Connie l Result [facility] [address] [place] [address], [place] [phone] * (ABNORMAL) Basic metabolic panel (10/15/2024 6:01 PM EDT) Sodium 138 133 - 145 mmol/L LAB CHEMISTRY METHOD 10/15/2024 7:11 PM EDT [facility] Potassium 4.5 3.5 - 5.5 mmol/L LAB CHEMISTRY METHOD 10/15/2024 7:11 PM EDT [facility] Chloride 105 96 - 110 mmol/L LAB CHEMISTRY METHOD 10/15/2024 7:11 PM EDT [facility] CO2 30 21 - 32 mmol/L LAB CHEMISTRY METHOD 10/15/2024 7:11 PM EDT [facility] Anion Gap 3 3 - 11 LAB CHEMISTRY METHOD 10/15/2024 7:11 PM [facility] Glucose 364(H) 70 - 100 mg/dL LAB CHEMISTRY METHOD 10/15/2024 7[facility] BUN 27(H) 5 - 25 mg/dL LAB CHEMISTRY METHOD 10/15/2024 7:11 PM [facility] Creatinine 1.46(H) 0.70 - 1.30 mg/dL LAB CHEMISTRY METHOD 10/15/2024 7:11 [facility] eGFR 49(L) >=60 mL/min/1. 73m2 LAB CHEMISTRY METHOD 10/15/2024 7:11 PM EDT [facility] Comment:Calculation based on the Chronic Kidney Disease Epidemiology Collaboration (CKD-EPI) equation refit without adjustment for race. BUN/Creatinine Ratio 18.5 LAB CHEMISTRY METHOD 10/15/2024 7:11 PM [facility] Calcium 9.3 8.5 - 10.5 mg/dL LAB CHEMISTRY METHOD 10/15/2024 7:11 PM [facility] Blood Venous blood specimen / Unknown Venipuncture / Unknown 10/15/2024 6:01 PM EDT 10/15/2024 6:33 PM EDT us Perla CHERRY LAB BLOOD ORDERABLES Fin al Result [facility] [address] [place] [address], [place] [phone] from Last 3 Months Insurance MEDICARE MEDICAID - [place] Care Teams Machine Hand Relationship Specialty Start Date End Date Physician, No Pcp PCP - General 10/15/24
--- OUTSIDE RECORDS SUMMARY | 2024-12-26 20:25 | XMS_ITS | Data Portability ---
Author Organization [email or web address] Address [address] [place] [id number] Care Team Providers Care Investigation Division Sergeant Name Role Phone [facility] CARE TEAM OTHER INDRA HORVATH Primary Care Provider [phone] Assessment Encounter Date Assessment Date Assessment LastModified by Organization Details LastModified Time 11/13/2024 11/13/2024 I provided real -time medical direction via phone for this encounter and was available for additional phone-based assistance as needed. I have reviewed and agree with the Assessment and Plan as documented by the Juvenile Officer. Patient given the opportunity to ask questions. Our service contacted for an assessment of: Urinary symptoms As per above, patient with approximately 24 hours of dysuria, frequency. No history of frequent urinary tract infections. Denies fever, chills, abdominal pain, back pain, flank pain. Per production gear cutter on the scene, Vital signs are stable and the patient is afebrile. Patient is nontoxic in appearance. UA is positive for leukocytes. Impression: Urinary symptoms, AMS and UTI Plan: [id number] mg BID for 5 days. F/u urine cx Allergies: reviewed We discussed the diagnostic uncertainty of home visits and the risk associated with this. In this case, the patient and I felt this to be an acceptable and reasonable amount of risk given the benefit of avoiding an ED visit. We discussed the need to seek care urgently/emergen tly in the setting of any new or worsening serious symptoms, particularly fever chills [email or web address] Not available 11/13/2024 13:02:03 Plan of Treatment Reminders Order Date Submit Date Provider Last Modified By Organization Details Last Modified Time Details Appointments None recorded. Lab urinalysis, dipstick [address] [facility], [address] [place] [address], [id number] 13:53:59 culture, urine 2024 025 [place] [facility] (Centralized Electronic Ordering - All Locations), Patient Can Go To The Location Of Their Choice, [id number] 06:08:09 Referral None recorded. Procedures None recorded. Surgeries None recorded. Imaging None recorded. Medication Orders cephalexin 500 mg tablet 2024 025 [facility] #[id number], [address] [place], [address], 05:01:45 cephalexin 500 mg tablet 2024 025 [facility] #[id number], [address] [place], [address], 05:01:45 Patient TargetsNo targets recorded. Patient InstructionsNo instructions recorded. Reason for Referral None Reported. Results Created Date Observation Date Name Description Value Unit Range Abnormal Flag Note LastModifiedBy Organization Detail LastModifiedTime 11/14/1911/15/2024 URINE CULTU RE, UROLO GY LACEY P urine culture, urology workup Final report abnormal Not Available [facility] ([facility]) [address] [facility], [place], [address], 11/15/2024 18:05:47 11/14/1911/15/2024 URINE CULTU RE, UROLO GY LACEY P result 1 Escher ichia coli abnormal Cefaz stacy with an VEGA <=16 predi cts susce ptibi lity to the oral agent s cefac kimberly, cefdi callum, cefpo doxim e, cefpr ozil, cefur oxime , cepha lexin , and lorac arbef when used for thera py of uncom plica jossy urina ry tract infec tions due to E. coli, Klebs iella pneum oniae , and Prote us mirab ilis. 10,00 0-25, 000 colon y formi ng units per mL Not Available [facility] ([facility]) [address] [facility], [place], [address], 11/15/2024 18:05:47 11/14/19 25 11/15/2024 URINE CULTU RE, UROLO GY LACEY P result 2 Klebsi jose pneumo niae abnormal Cefaz stacy with an VEGA <=16 predi cts susce ptibi lity to the oral agent s cefac kimberly, cefdi callum, cefpo doxim e, cefpr ozil, cefur oxime , cepha lexin , and lorac arbef when used for thera py of uncom plica jossy urina ry tract infec tions due to E. coli, Klebs iella pneum oniae , and Prote us mirab ilis. Great er than 100,0 00 colon y formi ng units per mL Not Available [facility] ([facility]) [address] [facility], [place], [address], 11/15/2024 18:05:47 11/14/19 25 11/15/2024 URINE CULTU RE, UROLO GY LACEY P antimicrobia l susceptibili ty Commen t S = Susce ptibl e; I = Inter media te; R = Resis tant P = Posit tram; N = Negat tram MICS are expre ssed in micro grams per mL Antib iotic RSLT# 1 RSLT# 2 RSLT# 3 RSLT# 4 Amoxi cilli n/Cla vulan ic Acid S S Ampic illin S R Cefaz stacy S S Cefep partha S S Cefox itin S S Cefpo doxim e S S Ceftr iaxon e S S Cipro floxa tigist S S Ertap enem S S Genta micin S S Levof loxac in S S Merop enem S S Nitro furan toin S R Piper acill in/Ta zobac ramachandran S S Tetra cycli ne S S Tobra mycin S S Trime thopr im/Alcaraz lfa S S Not Available [facility] ([facility]) [address] [facility], [place], [address], 11/15/2024 18:05:47 Result Notes None recorded. Medical Equipment None Reported. Allergies No known drug allergies Medications Name Sig Start Date Stop Date Status Note LastModified by Organization Details LastModified Time metformin 500 mg tablet TAKE 1 TABLET BY MOUTH EVERY DAY active Not Available Not Available No t Available cefuroxime axetil 250 mg tablet TAKE 1 TABLET BY MOUTH EVERY 12 HOURS FOR 7 DAYS active Not Available Not Available No t Available trazodone 50 mg tablet TAKE 1 TABLET BY MOUTH EVERYDAY AT BEDTIME active Not Available Not Available No t Available cefpodoxime 200 mg tablet Take 1 tablet every 12 hours by oral route for 7 days, for UTI. 11/30 completed Not Available Not Available Not Available donepezil 10 mg tablet TAKE 1 TABLET BY MOUTH EVERYDAY AT BEDTIME active Not Available Not Available No t Available insulin syringe U-100 with needle 1/2 mL 28 gauge x 1/2 USE SUBCUTANE OUSLY AT BEDTIME active Not Available Not Available No t Available amlodipine 5 mg tablet TAKE 1 TABLET BY MOUTH EVERY DAY active Not Available Not Available No t Available bacitracin zinc 500 unit/gram topical ointment APPLY TOPICALLY TWICE A DAY FOR 10 DAYS active Not Available Not Available No t Available quetiapine 100 mg tablet TAKE 1 BY MOUTH EVERY DAY AT BEDTIME active Not Available Not Available No t Available cephalexin 500 mg capsule TAKE 1 CAPSULE BY MOUTH TWICE A DAY FOR 5 DAYS active Not Available Not Available No t Available cephalexin 500 mg tablet Take 1 tablet twice a day by oral route for 5 days. 11/25 completed Not Available Not Available Not Available cefuroxime axetil 500 mg tablet TAKE 1 TABLET BY MOUTH TWICE A DAY FOR 10 DAYS active Not Available Not Available No t Available losartan 100 mg tablet TAKE 1 TABLET BY MOUTH EVERY DAY active Not Available Not Available No t Available clotrimazol e 1 % topical cream APPLY TO AFFECTED AREA TWICE A DAY active Not Available Not Available No t Available levothyroxi ne 112 mcg tablet TAKE 1 TABLET BY MOUTH EVERY DAY active Not Available Not Available No t Available memantine 5 mg tablet TAKE 1 TABLET BY MOUTH EVERY DAY active Not Available Not Available No t Available Semglee (insulin glargine-yf gn) Pen 100 unit/mL (3 mL) subcutaneou s 40 UNITS AT BEDTIME UNDER THE SKIN active Not Available Not Available No t Available Vitals Date Recorded Heart rate Oxygen saturation Oxygen saturation in Arterial blood by Pulse oximetry Respiratory rate Body temperature Systolic And Diastolic Provider Name and Address Organization Details Last Updated DateTime 76 /min 98 % 98 % 16 /min 98.2 [degF] 122/68 mm[Hg] Not Available [facility] 12:50:15 Social History None recorded. Functional Status None recorded. Mental Status None recorded. Family History Nothing Reported. Medical History No medical history recorded. Past Encounters Encounter ID Performer Location Encounter Start Date Encounter Closed Date Diagnosis/Indication Diagnosis SNOMED-CT Code Diagnosis ICD10 Code Diagnosis IMO Codes Diagnosis Note [id number] Amaya Angel MD [facility] [address] [place] [address] 11/13/2024 12:50:11 11/13/2024 17:40:57 Urinary system finding 306261607 R39.9 [id number] Health Concerns Section Related Observation LastModified by Organization Detai ls LastModified Time None Recorded Concern Status LastModified by Organization Details LastModified Time None Recorded Advance Directives Directive None Recorded Payers Insurance Date Sequence Insurance Name Policy Number Policy Blank Covered Member ID Blank Member ID Guarantor Name 11/13/[address] [facility] - MEDICARE PREFERRED (MEDICARE REPLACEMENT HMO) S[employer] Curtis Owusu [id number] Curtis Calderon Owusu Notes Date Note Type Note Provider Name and Address Organization Details Recorded Time 11/13/2024 text/html [facility] Nurse Triage Notes (Charu English - RN): Reason For Request: blood sugar check/UTI Denies: Unable to void greater than 5 hours Erection that will not go away after 2 hours Fall or trauma that results in urinary incontinence in the setting of pain Fall or injury that results in incontinence in the absence of pain Lower back pain either unilateral or bilateral, unable to void, painful urination -hematuria Chief Complaints: Confusion, Urinary Symptoms PMH: Diabetes Mellitus Type 2, Dementia (e.g., Alzheimer's Disease), Hypertension, Osteoarthritis, Hypothyroidism, Stroke, Chronic Kidney Disease PMH Reviewed at 11/13/2024 - 10:52 Allergies Reviewed at 11/13/2024 - 10:52 Comments: 78 y.o male complains of Confusion, Urinary Symptoms Patients VNA calling in to place a referral Patient with UTI about a month ago and family concerned he may have another one. Patient with increased confusion, and agitation last night Family reports blood sugar 2 nights ago was 49, last night it was 400s, during intake it was 272 Per VNA he takes Lantus 50 units and glipizide Patient did tolerate a little bit of breakfast this morning Family notes urinary frequency and urgency, darker thicker urine and he does endorse occasional kidney pain They denies any odor or hematuria, no fever/chills, no nausea or vomiting They would like him evaluated for a UTI. I provided information on the mobile health provider response time and advised the patient and/or caregiver to monitor reported signs and symptoms. I discussed the warning signs of when to seek emergency care. Juvenile Officer Organization Information for Natan Pat Carrillo [employer] Name: [employer]. Address: [address] [place] [id number], Veterinary Surgeon: Watson ZHU No.: [id number] Juvenile Officer POC Test Results from Natan Pat Urine Dipstick (12:47:52) Urine leukocytes: 125++REESE Urine nitrites: +NIT Urine urobilinogen: -URO Urine protein: -PRO Urine pH: 5pH Urine blood: 5-10BLO Urine specific gravity: 1.015SG Urine ketones: 2++KET Urine bilirubin: -MEAGHAN Urine glucose: 500+GLU ................... ................... ................... ................... ................... ................... ................... ........ Juvenile Officer Note From Natan Pat: Dispatched to the call address for the male with possible UTI. Pts family advises Pt has Hx of dementia and is confused at baseline but the last couple of days he has been acting outside of his norm. He has been hallucinating and waving his hands around, they also noticed his urine to be dark and cloudy. Pt had a UTI last month but family is not aware of which abx he was placed on but it did work for him. Pt was found sitting on living room couch, CAOx1, airway open and patent, breathing non labored, able to speak in full sentences, -JVD, -HEENT, skin PWD with good turgor, mucous membranes pink and moist, pupils PERRL, lungs CTA, abd soft non tender/distended, -edema/swelling, afebrile, +CMSx4, UA (+) UTI Pt was assessed. UA conducted, results uploaded to Pts portal. Sample obtained for lab. [facility] consulted. POC Blood glucose check. Pt given 500mg PO Keflex after confirming medication rights. Script called into preferred pharmacy. Red flags discussed. ALL times are approx. [facility] Lab Orders: urinalysis, dipstick: Performed culture, urine: Performed [facility] Medication Orders: cephalexin 500 mg tablet: Performed ................... ................... ................... ................... ................... ................... ................... ........ [facility] Consulted: Amaya Angel ................... ................... ................... ................... ................... ................... ................... ........ Disposition: Fulfilled Amaya Angel MD [address] [facility], [place], [phone], EZEQUIEL VIVAS 11/13/2024 13:48:01
[2024-12-26 23:00] VITALS: BP 152/73; PULSE 61; RESP 16; TEMP 36.6; O2SAT 96
[2024-12-26 23:26] VITALS: BP 152/73; PULSE 61; RESP 16; TEMP 36.6; O2SAT 96
== END 2024-12-26 23:28 | disposition home or self-care (01) ==
PROVIDERS: Student in an Organized Health Care Education/Training Program; Emergency Provider Emergency Medicine Emergency Medical Services; PCP Internal Medicine
DX: R19.7 Diarrhea, unspecified (principal); N39.0 Urinary tract infection, site not specified; F03.90 Unspecified dementia, unspecified severity, without behavioral disturbance, psychotic disturbance, mood disturbance, and anxiety; E11.9 Type 2 diabetes mellitus without complications; E03.9 Hypothyroidism, unspecified
CPT/HCPCS: 36415; 74176; 80053; 81001; 83690; 83735; 85025; 99284

== ENCOUNTER → 2024-12-26 20:38 | Outpatient (BNV) | payer MEDICARE, SELFPAY | PROVIDERS: Emergency Provider Emergency Medicine Emergency Medical Services; PCP Internal Medicine; Visit Provider Specialist | DX: Z03.89 Encounter for observation for other suspected diseases and conditions ruled out (principal) | CPT/HCPCS: 74176 ==

== ENCOUNTER 2024-12-28 01:58 | Emergency (ER) | payer MEDICARE, SELFPAY ==
[2024-12-28 02:15] VITALS: BP 118/60; PULSE 103; RESP 16; TEMP 36.6; O2SAT 96; BMI 22.3
--- OUTSIDE RECORDS SUMMARY | 2024-12-28 02:45 | XMS_ITS | Clinical Summary ---
Author Organization [facility] Address [address] [place] [address] Phone Care Team Providers Care Area Attendant Name Role Phone Physician, No Pcp Primary Care Provider Unavaila ble Allergies No known active allergies Medications traZODone (DESYREL) 50 mg tablet Take 1 tablet (50 mg total) by mouth at bedtime. 30 each 10/16/2024 Active Active Problems No known active problems Encounters Date Type Department Care Team Description 10/15/2024 9:13 PM EDT - 10/16/2024 3:09 AM EDT Emergency [facility] Emergency [address] [place] [address] Kenton Ortiz MD Acute cystitis without hematuria (Primary Dx); Balanitis; Controlled type 2 diabetes mellitus with hyperglycemia, with long-term current use of insulin ([facility] V24, [facility] V28) Discharge Disposition: Home or Self [...] - 100 mg/dL 10/16/2024 1:[address] [facility] Blood Capillary blood specimen / Unknown 10/16/2024 12:59 AM EDT 10/16/2024 1:01 AM EDT us Kenton Ortiz MD LAB POINT OF CARE TEST DOCKED DEVICE UNSOLICITED RESULTS Final Result Performing Organization Address [facility] Co de Phone Number [facility] [address] [place] [address], [place] [phone] * (ABNORMAL) Lactate, with Reflex (10/15/2024 11:18 PM EDT) [facility] LACTIC ACID 2.3(H) 0.4 - 2.0 mmol/L LAB CHEMISTRY METHOD 10/15/2024 11:[address] [facility] Blood Venous blood specimen / Unknown Venipuncture / Unknown 10/15/2024 11:18 PM EDT 10/15/2024 11:25 PM EDT Kenton Ortiz MD LAB BLOOD ORDERABLES Connie l Result Performing Organization Address City/[facility]/ZIP Co de Phone Number [facility] [address] [place] [address], [place] [phone] * Blood Culture, Peripheral #2 (10/15/2024 11:18 PM EDT) Only the most recent of2 resultswithin the time period is included. Culture, Blood No growth at 5 days 10/21/2024 12:[address] [facility] Blood Venous blood specimen / Unknown Venipuncture / Unknown 10/15/2024 11:18 PM EDT 10/15/2024 11:25 PM EDT us Kenton Ortiz MD LAB MICROBIOLOGY - GENERA L ORDERABLES Final Result [facility] [address] [place] [address], [place] [phone] * (ABNORMAL) Urinalysis with reflex microscopic and culture (10/15/2024 6:30 PM EDT) Specific [place] Urine 1.039(H) 1.003 - 1.030 LAB URINALYSIS - AUTOMATED METHOD 10/15/2024 6:53 PM [facility] pH, Urine 5.5 5.0 - 8.0 pH LAB URINALYSIS - AUTOMATED METHOD 10/15/2024 6:53 PM [facility] Leukocytes, Urine Moderate(A) Negative LAB URINALYSIS - AUTOMATED METHOD 10/15/2024 6:53 PM [facility] Nitrite, Urine Negative Negative LAB URINALYSIS - AUTOMATED METHOD 10/15/2024 6:53 PM [facility] Protein, Urine 30(A) <=Trace mg/dL LAB URINALYSIS - AUTOMATED METHOD 10/15/2024 6:53 PM [facility] Glucose, Urine >=1000(A) Negative mg/dL LAB URINALYSIS - AUTOMATED METHOD 10/15/2024 6:53 PM [facility] Ketones, Urine Trace(A) Negative mg/dL LAB URINALYSIS - AUTOMATED METHOD 10/15/2024 6:53 PM [facility] Urobilinogen , Urine 1.0 0.2 - 1.0 mg/dL LAB URINALYSIS - AUTOMATED METHOD 10/15/2024 6:[address] [facility] Bilirubin, Urine Negative Negative LAB URINALYSIS - AUTOMATED METHOD 10/15/2024 6:[address] [facility] Blood, Urine Trace(A) Negative LAB URINALYSIS - AUTOMATED METHOD 10/15/2024 6:[address] [facility] RBC, Urine 2.2 0 - 4 /HPF LAB URINALYSIS - AUTOMATED METHOD 10/15/2024 6:[address] [facility] WBC, Urine 223.5(H) 0 - 4 /HPF LAB URINALYSIS - AUTOMATED METHOD 10/15/2024 6:[address] [facility] Squamous Epithelial, Urine 19 0 - 60 /LPF LAB URINALYSIS - AUTOMATED METHOD 10/15/2024 6:53 PM [facility] Bacteria, Urine Moderate(A) Negative /HPF LAB URINALYSIS - AUTOMATED METHOD 10/15/2024 6:53 [facility] Hyaline Casts, Urine 0.4 0 - 3 /LPF LAB URINALYSIS - AUTOMATED METHOD 10/15/2024 6:53 PM [facility] Urine Urine specimen obtained by clean catch procedure / Unknown Non-blood Collection / Unknown 10/15/2024 6:30 PM EDT 10/15/2024 6:40 PM EDT us Perla CHERRY LAB URINE ORDERABLES Fin al Result [facility] [address] [place] [address], * Couch urine culture tube (10/15/2024 6:30 PM EDT) Extra Tube Hold for add-ons. 10/15/2024 8:[address] [facility] Comment:Auto resulted. Urine Urine specimen obtained by clean catch procedure / Unknown Non-blood Collection / Unknown 10/15/2024 6:30 PM EDT 10/15/2024 6:40 PM EDT Perla CHERRY LAB URINE ORDERABLES Fin al Result [facility] [address] [place] [address], [place] [phone] * Culture urine (10/15/2024 6:30 PM EDT) Pathologist [facility] Culture, Urine >100,000 CFU/mL Mixed urogenital peter, no uropathogens present. Suggest repeat specimen if clinically indicated. 10/17/2024 10:[address] [facility] Urine Urine specimen obtained by clean catch procedure / Unknown Non-blood Collection / Unknown 10/15/2024 6:30 PM EDT 10/15/2024 6:53 PM EDT Perla CHERRY LAB MICROBIOLOGY - GENER AL ORDERABLES Final Result Performing Organization Address [facility]/ZIP Co de Phone Number [facility] [address] [place] [address], [place] [phone] * (ABNORMAL) CBC auto differential (10/15/2024 6:01 PM EDT) WBC 7.6 4.8 - 10.8 K/mcL LAB HEMETOLOGY METHOD 10/15/2024 6:[address] [facility] RBC 5.10 4.50 - 5.50 M/mcL LAB HEMETOLOGY METHOD 10/15/2024 6:[address] [facility] Hemoglobin 14.5 13.5 - 17.5 g/dL LAB HEMETOLOGY METHOD 10/15/2024 6:[address] [facility] Hematocrit 44.9 42.0 - 54.0 % LAB HEMETOLOGY METHOD 10/15/2024 6:[address] [facility] MCV 88.2 79.0 - 98.0 FL LAB HEMETOLOGY METHOD 10/15/2024 6:41 [facility] MCH 28.5 27.0 - 32.0 pcg LAB HEMETOLOGY METHOD 10/15/2024 6:41 PM [facility] MCHC 32.3 32.0 - 37.0 g/dL LAB HEMETOLOGY METHOD 10/15/2024 6:[address] [facility] RDW 12.6 11.0 - 15.0 % LAB HEMETOLOGY METHOD 10/15/2024 6:41 PM [facility] Platelets 231 130 - 400 K/mcL LAB HEMETOLOGY METHOD 10/15/2024 6:41 PM [facility] MPV 12.0(H) 7.0 - 11.0 FL LAB HEMETOLOGY METHOD 10/15/2024 6:41 PM [facility] NRBC 0.0 <1.0 % LAB HEMETOLOGY METHOD 10/15/2024 6:41 PM [facility] NRBC Absolute 0.00 <0.10 K/mcL LAB HEMETOLOGY METHOD 10/15/2024 6:41 PM [facility] Neutrophils Relative 69.0 % LAB HEMETOLOGY METHOD 10/15/2024 6:41 PM [facility] Lymphocytes Relative 21.7 % LAB HEMETOLOGY METHOD 10/15/2024 6:41 PM [facility] Monocytes Relative 7.8 % LAB HEMETOLOGY METHOD 10/15/2024 6:41 PM [facility] Eosinophils Relative 0.9 % LAB HEMETOLOGY METHOD 10/15/2024 6:41 PM [facility] Basophils Relative 0.1 % LAB HEMETOLOGY METHOD 10/15/2024 6:[address] [facility] Immature Granulocytes Relative 0.5 % LAB HEMETOLOGY METHOD 10/15/2024 6:[address] [facility] Neutrophils Absolute 5.24 1.50 - 7.00 K/mcL LAB HEMETOLOGY METHOD 10/15/2024 6:[address] [facility] Lymphocytes Absolute 1.65 1.00 - 5.00 K/mcL LAB HEMETOLOGY METHOD 10/15/2024 6:[address] [facility] Monocytes Absolute 0.59 0.20 - 1.00 K/mcL LAB HEMETOLOGY METHOD 10/15/2024 6:[address] [facility] Eosinophils Absolute 0.07 0.00 - 0.50 K/mcL LAB HEMETOLOGY METHOD 10/15/2024 6:[address] [facility] Basophils Absolute 0.01 0.00 - 0.20 K/mcL LAB HEMETOLOGY METHOD 10/15/2024 6:[address] [facility] Immature Granulocytes Absolute 0.04(H) 0.00 - 0.03 K/mcL LAB HEMETOLOGY METHOD 10/15/2024 6:[address] [facility] Blood Venous blood specimen / Unknown Venipuncture / Unknown 10/15/2024 6:01 PM EDT 10/15/2024 6:33 PM EDT us Perla CHERRY LAB BLOOD ORDERABLES Fin al Result [facility] [address] [place] [address], * Alanine aminotransferase (10/15/2024 6:01 PM EDT) ALT (SGPT) 42 10 - 60 unit/L LAB CHEMISTRY METHOD 10/15/2024 9:[address] [facility] Blood Venous blood specimen / Unknown Venipuncture / Unknown 10/15/2024 6:01 PM EDT 10/15/2024 6:33 PM EDT Kenton Ortiz MD LAB BLOOD ORDERABLES Connie l Result Performing Organization Address [facility]/ZIP Co de Phone Number [facility] [address] [place] [address], [place] [phone] * Aspartate aminotransferase (10/15/2024 6:01 PM EDT) AST (SGOT) 27 10 - 42 unit/L LAB CHEMISTRY METHOD 10/15/2024 9:[address] [facility] Blood Venous blood specimen / Unknown Venipuncture / Unknown 10/15/2024 6:01 PM EDT 10/15/2024 6:33 PM EDT Kenton Ortiz MD LAB BLOOD ORDERABLES Connie l Result Performing Organization Address [facility]/ZIP Co de Phone Number [facility] [address] [place] [address], [place] [phone] * (ABNORMAL) Alkaline phosphatase (10/15/2024 6:01 PM EDT) Alkaline Phosphatase 122(H) 42 - 121 unit/L LAB CHEMISTRY METHOD 10/15/2024 9:[address] [facility] Blood Venous blood specimen / Unknown Venipuncture / Unknown 10/15/2024 6:01 PM EDT 10/15/2024 6:33 PM EDT Kenton Ortiz MD LAB BLOOD ORDERABLES Connie l Result Performing Organization Address City/[facility]/ZIP Co de Phone Number [facility] [address] [place] [address], [place] [phone] * (ABNORMAL) Magnesium (10/15/2024 6:01 PM EDT) Magnesium 1.8(L) 1.9 - 2.6 mg/dL LAB CHEMISTRY METHOD 10/15/2024 7:[address] [facility] Blood Venous blood specimen / Unknown Venipuncture / Unknown 10/15/2024 6:01 PM EDT 10/15/2024 6:33 PM EDT Perla CHERRY LAB BLOOD ORDERABLES Fin al Result [facility] [address] [place] [address], [place] [phone] * Bilirubin, total (10/15/2024 6:01 PM EDT) Pathologist [facility] Total Bilirubin 1.3 0.0 - 1.4 mg/dL LAB CHEMISTRY METHOD 10/15/2024 9:[address] [facility] Blood Venous blood specimen / Unknown Venipuncture / Unknown 10/15/2024 6:01 PM EDT 10/15/2024 6:33 PM EDT Kenton Ortiz MD LAB BLOOD ORDERABLES Connie l Result [facility] [address] [place] [address], [place] [phone] * (ABNORMAL) Basic metabolic panel (10/15/2024 6:01 PM EDT) Sodium 138 133 - 145 mmol/L LAB CHEMISTRY METHOD 10/15/2024 7:[address] [facility] Potassium 4.5 3.5 - 5.5 mmol/L LAB CHEMISTRY METHOD 10/15/2024 7:[address] [facility] Chloride 105 96 - 110 mmol/L LAB CHEMISTRY METHOD 10/15/2024 7:[address] [facility] CO2 30 21 - 32 mmol/L LAB CHEMISTRY METHOD 10/15/2024 7:[address] [facility] Anion Gap 3 3 - 11 LAB CHEMISTRY METHOD 10/15/2024 7:11 PM [facility] Glucose 364(H) 70 - 100 mg/dL LAB CHEMISTRY METHOD 10/15/2024 7:11 PM [facility] BUN 27(H) 5 - 25 mg/dL LAB CHEMISTRY METHOD 10/15/2024 7:11 PM [facility] Creatinine 1.46(H) 0.70 - 1.30 mg/dL LAB CHEMISTRY METHOD 10/15/2024 7:11 PM [facility] eGFR 49(L) >=60 mL/min/1. 73m2 LAB CHEMISTRY METHOD 10/15/2024 7:[address] [facility] Comment:Calculation based on the Chronic Kidney Disease Epidemiology Collaboration (CKD-EPI) equation refit without adjustment for race. BUN/Creatinine Ratio 18.5 LAB CHEMISTRY METHOD 10/15/2024 7:11 PM [facility] Calcium 9.3 8.5 - 10.5 mg/dL LAB CHEMISTRY METHOD 10/15/2024 7:11 PM [facility] Blood Venous blood specimen / Unknown Venipuncture / Unknown 10/15/2024 6:01 PM EDT 10/15/2024 6:33 PM EDT us Perla CHERRY LAB BLOOD ORDERABLES Fin al Result [facility] [address] [place] [address], [place] [phone] from Last 3 Months Insurance MEDICARE MEDICAID - [place] Care Teams Area Attendant Relationship Specialty Start Date End Date Physician, No Pcp PCP - General 10/15/24
--- NOTE | 2024-12-28 03:11 | ED.GENADULT ---
HPI - General Adult General Chief complaint: General Medical Stated complaint: diarrhea x 3 days seen yesterday Time Seen by Provider: 12/28/24 02:31 Source: family Mode of arrival: ambulatory Limitations: other History of Present Illness ED Provider: Dr. Alesia Jackson HPI narrative: Patient comes to the emergency room accompanied by his granddaughter. Patient has a dementia. According to the family, patient has been having diarrhea for several days. Patient was seen 2 days ago for the same complaint. Patient was discharged with Macrobid for a UTI and loperamide for diarrhea. According to the family, tonight patient had 5 episodes of diarrhea, they do not believe there was any blood there. No episodes of vomiting. Patient does not seem to have abdominal pain. Related Data Home Medications ?Medication ?Instructions ?Recorded ?Confirmed donepezil 10 mg tablet 10 mg PO DAILY 10/22/24 12/08/24 amlodipine 5 mg tablet 5 mg PO DAILY@1700 12/08/24 12/08/24 atorvastatin 40 mg tablet 40 mg PO DAILY 12/08/24 12/08/24 hydralazine 25 mg tablet 25 mg BID 12/08/24 12/08/24 insulin glargine-yfgn 100 unit/mL 40 unit subcut BEDTIME 12/08/24 12/08/24 (3 mL) subcutaneous pen (Semglee (insulin glargine-yfgn) Pen) levothyroxine 112 mcg tablet 112 mcg PO DAILY 12/08/24 12/08/24 losartan 100 mg tablet 100 mg PO DAILY 12/08/24 12/08/24 memantine 5 mg tablet 5 mg PO BEDTIME 12/08/24 12/08/24 metformin 500 mg tablet 500 mg PO DAILY 12/08/24 12/08/24 Previous Rx's ?Medication ?Instructions ?Recorded loperamide 2 mg capsule 2 mg PO Q4H PRN Diarrhea 30 days 12/11/24 #3 caps losartan 50 mg tablet 100 mg PO DAILY 30 days #60 tabs 12/11/24 memantine 5 mg tablet 5 mg PO BEDTIME 30 days #30 tabs 12/11/24 quetiapine 200 mg tablet 200 mg PO BEDTIME 30 days #30 tabs 12/11/24 tramadol 50 mg tablet 50 mg PO Q6H PRN Pain, 12/11/24 Moderate(Pain Scale 4-6) 30 days #30 tabs loperamide 2 mg capsule 2 mg PO Q4H PRN loose stool #30 12/26/24 caps nitrofurantoin 100 mg PO Q12H 7 days #13 caps 12/26/24 monohydrate/macrocrystals 100 mg capsule (Macrobid) cefuroxime axetil 250 mg tablet 250 mg PO BID #14 tabs 12/28/24 diphenoxylate-atropine 2.5 1 tab PO BID PRN diarrhea #7 tabs 12/28/24 mg-0.025 mg tablet (Lomotil) Allergies Allergy/AdvReac Type Severity Reaction Status Date / Time No Known Allergies Allergy Verified 01/03/25 10:15 Review of Systems Review of Systems: Yes Other (Dementia) [facility] Past Medical History Medical History Dementia Diabetes mellitus type 2, controlled, without complications Hypertension associated with chronic kidney disease due to type 2 diabetes mellitus Social History Social History Household Members: Family Housing: House Do you presently have visiting nurse or other home services: No Comment: family at bedside. Patient Tobacco Use Status: Former Tobacco user Advance Directives Date on File: 12/13/24 service: No Physical Exam ED Vital Signs: Vital Signs - 24 hr 12/28/24 02:15 Temperature 97.9 F Pulse Rate 103 H Respiratory Rate 16 Blood Pressure 118/60 Pulse Oximetry 96 Oxygen Delivery Method Room Air BMI result Body Mass Index 22.3 Course Course Course Narrative: Patient was seen 2 days ago, diagnosed with UTI and also had diarrhea. Patient continues having diarrhea despite medications including antibiotics and antidiarrheals. All of patient's labs and imaging are pending. Patient denies any abdominal pain Patient receiving IV fluids, Lomotil, Medications Administered Discontinued Medications Generic Name Dose Route Start Last Admin Trade Name Freq PRN Reason Stop Dose Admin Diphenoxylate HCl/Atropine 1 tab 12/28/24 03:01 12/28/24 03:28 Diphenoxylate/Atrop 2.5/0.025 Tablet PO 12/28/24 03:02 1 tab ONCE ONE Administration Lactated Ringer's 1,000 mls @ 999 mls/hr 12/28/24 03:15 12/28/24 06:14 Lr IV 12/28/24 04:15 Infused .Q1H1M NAILA Infusion Ceftriaxone Sodium 1 gm/ 50 mls @ 100 mls/hr 12/28/24 03:01 12/28/24 03:56 Sodium Chloride IV 12/28/24 03:30 Infused ONCE ONE Infusion Medical Decision Making Medical Decision Making [facility] Narrative: My interpretation of labs: No significant abnormality in patient's hematology or chemistry, LFTs normal, lipase normal Here in the emergency room, patient has not had any episodes of diarrhea. I will switch patient's antibiotics to cefuroxime. Patient was previously on Macrobid. [place] waiting for a urine for confirmation. However, we will still change the antibiotic any ways. Patient already received the 1st dose of IV antibiotics, ceftriaxone. We will continue with cefuroxime Differential Diagnosis Differential Diagnoses: The differential diagnosis associated with the presentation includes (UTI, diarrhea) Admission/Observation Consideration of admission/observation: Escalation of care including admission/observation considered Lab Data [facility] Lab Attestation statement: I reviewed the patient's lab results. 12/28/24 03:13 12/28/24 03:13 Labs: Lab Results 12/28/24 Range/Units 03:13 WBC 7.8 (4.8-10.8) X10*3/uL RBC 4.20 L (4.60-5.80) X10*6/uL Hgb 12.6 L (14.0-18.0) g/dl Hct 37.4 L (42.0-52.0) % MCV 89.0 (80.0-98.0) fL MCH 30.0 (27.0-33.0) pg MCHC 33.7 (31.0-36.0) g/dl RDW 13.1 (11.0-16.0) % Plt Count 230 (160-400) X10*3/uL MPV 10.4 (9.4-12.4) fL Immature Gran % (Auto) 0.3 (0.0-0.4) % Neut % (Auto) 66.2 (45-73) % Lymph % (Auto) 18.2 L (20-40) % [facility] % (Auto) 13.4 H (2-11) % Eos % (Auto) 1.5 (0-4) % Baso % (Auto) 0.4 (0-2) % Lymph # (Auto) 1.4 (1.2-4.9) X10*3/uL [facility] # (Auto) 1.1 (0.1-1.2) X10*3/uL Eos # (Auto) 0.1 (0.0-0.4) X10*3/uL Baso # (Auto) 0.0 (0.0-0.2) X10*3/uL Abs Immat Gran (auto) 0.02 (0.00-0.03) X10*3/uL Absolute Neuts (auto) 5.2 (2.0-8.3) x10*3/uL Absolute Nucleated RBC 0.000 (0.0-0.012) X10*3/uL Nucleated RBC % (auto) 0.0 (0.0-0.2) /100WBC Sodium 138 (135-145) mmol/L Potassium 3.7 (3.3-5.1) mmol/L Chloride 104 (96-108) mmol/L Carbon Dioxide 26 (22-29) mmol/L Anion Gap 12 (12-20) BUN 20 H (9-16) mg/dL Creatinine 1.07 (0.5-1.4) mg/dL Estim Creat Clear Calc 47.2 Estimated GFR > 60 Random Glucose 215 H (60-115) mg/dL Calcium 8.8 D (8.4-10.2) mg/dL Magnesium 1.6 (1.6-2.6) mg/dL Total Bilirubin 1.7 H (0.0-1.0) mg/dL Direct Bilirubin 0.5 (0.0-0.5) mg/dL AST 19 (5-37) U/L ALT 12 (0-40) U/L Alkaline Phosphatase 101 (39-117) U/L Total Protein 6.1 L (6.5-8.0) g/dL Albumin 3.8 (3.5-5.0) g/dL Lipase 7 L (8-78) U/L Critical Care Time Critical Care Time Critical Care Time: Yes Total Critical Care Time: 50 Attestation: I have personally provided critical care time. Time includes review of lab data, radiology results, discussion with consultants, and monitoring for potential decompensation. Intervention performed as documented. Discharge Plan Discharge Clinical Impression: Diarrhea, Acute UTI Patient Disposition: Home, Self-Care Instructions: Urinary Tract Infection in Men (ED), Acute Diarrhea (ED) Additional Instructions: Please stop taking Macrobid and start taking cefuroxime. Prescriptions: New cefuroxime axetil 250 mg tablet 250 mg PO BID Qty: 14 0RF diphenoxylate-atropine [Lomotil] 2.5-0.025 mg tablet 1 tab PO BID PRN (Reason: diarrhea) Qty: 7 0RF No Action atorvastatin 40 mg Tablet 40 mg PO DAILY hydralazine 25 mg Tablet 25 mg BID amlodipine 5 mg Tablet 5 mg PO DAILY@1700 levothyroxine 112 mcg tablet 112 mcg PO DAILY losartan 100 mg tablet 100 mg PO DAILY metformin 500 mg tablet 500 mg PO DAILY memantine 5 mg tablet 5 mg PO BEDTIME insulin glargine-yfgn [Semglee(insulin glarg-yfgn)Pen] 100 unit/mL (3 mL) insulin pen 40 unit subcut BEDTIME losartan 50 mg Tablet 100 mg PO DAILY 30 Days Qty: 60 3RF Protocol: Hold for SBP< HOLD for SBP < : 90 loperamide 2 mg Capsule 2 mg PO Q4H PRN (Reason: Diarrhea) 30 Days Qty: 3 3RF quetiapine 200 mg Tablet 200 mg PO BEDTIME 30 Days Qty: 30 3RF tramadol 50 mg Tablet 50 mg PO Q6H PRN (Reason: Pain, Moderate(Pain Scale 4-6)) 30 Days Qty: 30 3RF memantine 5 mg Tablet 5 mg PO BEDTIME 30 Days Qty: 30 3RF loperamide 2 mg capsule 2 mg PO Q4H PRN (Reason: loose stool) Qty: 30 0RF Rx Instructions: administer after each loose stool until symptoms controlled; do not exceed 8 mg per 24 hrs nitrofurantoin monohyd/m-cryst [Macrobid] 100 mg capsule 100 mg PO Q12H 7 Days Qty: 13 0RF Rx Instructions: must administer with a meal/food donepezil 10 mg tablet 10 mg PO DAILY Stand Alone Forms: Work/School Release Interventions: ED Discharge Assessment Last Done: 12/28/24 06:58 Discharge Date/Time: 12/28/24 07:04 Print Language: Chinese
[2024-12-28 03:19] LABS: MANUAL DIFF FLAG NO
[2024-12-28 03:20] LABS: Hematocrit 37.4 % (42.0-52.0); Hemoglobin 12.6 g/dl (14.0-18.0); Imm Gran Abs Auto 0.02 X10*3/uL (0.00-0.03); Imm Gran Pct Auto 0.3 % (0.0-0.4); Lymphocytes Absolute Auto 1.4 X10*3/uL (1.2-4.9); Mean Corpuscular HGB Conc 33.7 g/dl (31.0-36.0); Mean Corpuscular Hemoglobin 30.0 pg (27.0-33.0); Mean Corpuscular Volume 89.0 fL (80.0-98.0); NRBC Abs Auto 0.000 X10*3/uL (0.0-0.012); NRBC Pct Auto 0.0 /100WBC (0.0-0.2); Platelet Count 230 X10*3/uL (160-400); Red Blood Count 4.20 X10*6/uL (4.60-5.80); White Blood Count 7.8 X10*3/uL (4.8-10.8)
[2024-12-28 03:33] LABS: Alanine Aminotransferase 12 U/L (0-40); Albumin Level 3.8 g/dL (3.5-5.0); Alkaline Phosphatase 101 U/L (39-117); Anion Gap 12 (12-20); Aspartate Amino Transferase 19 U/L (5-37); Blood Urea Nitrogen 20 mg/dL (9-16); Calcium 8.8 mg/dL (8.4-10.2); Carbon Dioxide 26 mmol/L (22-29); Chloride 104 mmol/L (96-108); Creatinine Clr Calc Pharmacy 47.2; Estimated Glomerular Filt Rate > 60; Lipase 7 U/L (8-78); Magnesium 1.6 mg/dL (1.6-2.6); Potassium 3.7 mmol/L (3.3-5.1); Sodium 138 mmol/L (135-145); Total Protein 6.1 g/dL (6.5-8.0)
[2024-12-28] MEDS: Lactated Ringers 1,000 ML 999 ML IV (04:06)
--- NOTE | 2024-12-28 06:12 | PC.NURSE ---
pt was able to urinate on his own- straight cath not necessary. RN informed pt and family that UA sample is needed. container left at bedside.
[2024-12-28 06:58] VITALS: BP 118/60; PULSE 103; RESP 16; TEMP 36.6; O2SAT 96
--- OUTSIDE RECORDS SUMMARY | 2025-02-09 20:00 | XMS_ITS | Clinical Summary ---
Author Organization Unknown Care Team Providers Care Architectural Sales Consultant Name Role Phone YULIET OTHER, INDRA Unavailable Unavailab candace SHEARER RN, SAHIL Unavailable Unavailab candace MARTE LPN, BETINA Unavailable Unavailable MAIRA PT, MELISSA Unavailable Unavailable [facility] [employer] GR[employer], [facility] Unavailable Unavailable Payers Payer Name Policy Type Policy Number Effective Date Expira tion Date BETHANYAUTH [id number] 01 Problems Condition Name Condition Details Condition Category Status Onset Date Resolution Date Last Treatment Date Treating Clinician Comments NONINFECTIVE GASTROENTERI TIS AND COLITIS, UNSPECIFIED Active 2024-02 00:00: 00 HYPOTHYROIDI SM, UNSPECIFIED Active 02-28 00:00: 00 DEM IN OTHER DIS CLASSD ELSWHR, SEV, W/O BEH/PSYCH/MO OD/ANX Active 02-28 00:00: 00 TYPE 2 DIABETES MELLITUS WITH HYPERGLYCEMI A Active 2024-02 00:00: 00 ESSENTIAL (PRIMARY) HYPERTENSION Active 02-28 00:00: 00 ALF (CURRENT) USE OF ORAL HYPOGLYCEMIC DRUGS Active 02-28 00:00: 00 Allergies, Adverse Reactions, Alerts Allergy Name Allergy Type Status Severity Reaction(s) Onset Date Inactive Date Treating Clinician Comments NO KNOWN ALLERGIES Propensity to adverse reactions Active 2024-02 10:21: 42 Vital Signs Vital Name Observation Time Observation Value Commen ts Temperature 2024-12-21 10:28:00.000 97 [degF] Temperature 2024-12-19 11:18:00.000 97.6 [degF] Temperature 2024-12-13 10:03:00.000 99 [degF] BMI (%) 2024-12-13 10:03:00.000 29 kg/m2 Height 2024-12-13 10:03:00.000 60 [in_us] Pulse 2024-12-21 10:28:00.000 85 /min Pulse 2024-12-19 11:18:00.000 76 /min Pulse 2024-12-13 10:03:00.000 68 /min O2 Saturation (%) 2024-12-21 10:28:00.000 95 % O2 Saturation (%) 2024-12-19 11:18:00.000 97 % O2 Saturation (%) 2024-12-13 10:03:00.000 98 % Respirations 2024-12-21 10:28:00.000 18 /min Respirations 2024-12-19 11:18:00.000 18 /min Respirations 2024-12-13 10:03:00.000 17 /min Weight (lbs) 2024-12-13 10:03:00.000 150 [lb_av] Systolic Blood Pressure 2024-12-21 10:28:00.000 118 mm [Hg] Systolic Blood Pressure 2024-12-19 11:18:00.000 138 mm [Hg] Systolic Blood Pressure 2024-12-13 10:03:00.000 150 mm [Hg] Diastolic Blood Pressure 2024-12-21 10:28:00.000 58 mm [Hg] Diastolic Blood Pressure 2024-12-19 11:18:00.000 60 mm [Hg] Diastolic Blood Pressure 2024-12-13 10:03:00.000 80 mm [Hg] Plan of Treatment Planned Activity Planned Date Details Comments Future Scheduled Test FALL REDUC TION MANAGEMENT; RN TO ASSESS AND OBSERVE, COMB FIXER/ELECTRO MECHANICAL TECHNOLOGIST TO OBSERVE FALL RISK FACTORS AND EDUCATE PATIENT/CAREGIVER ON STRATEGIES TO MINIMIZE THE RISK OF FALLING. [code = FALL REDUCTION MANAGEMENT; RN TO ASSESS AND OBSERVE, COMB FIXER/ELECTRO MECHANICAL TECHNOLOGIST TO OBSERVE FALL RISK FACTORS AND EDUCATE PATIENT/CAREGIVER ON STRATEGIES TO MINIMIZE THE RISK OF FALLING.] Future Scheduled Test DIABETES M ANAGEMENT; RN TO ASSESS AND TEACH, ELECTRO MECHANICAL TECHNOLOGIST/COMB FIXER TO OBSERVE AND TEACH INSTRUCTIONS OF DIABETIC CARE TO INCLUDE: DIET SKIN CARE, SIGNS AND SYMPTOMS OF HYPO/HYPERGLYCEMIA, PROPER ADMINISTRATION OF DIABETIC MEDICATION. RN/ELECTRO MECHANICAL TECHNOLOGIST/COMB FIXER TO INSTRUCT ON DIABETIC FOOT CARE AND MONITOR FOR SKIN LESIONS ON LOWER EXTREMITIES. BLOOD GLUCOSE TESTING DAILY FREQ. RN TO ASSESS AND TEACH, ELECTRO MECHANICAL TECHNOLOGIST/COMB FIXER TO OBSERVE AND TEACH PATIENT/CAREGIVER ABILITY TO PERFORM AND RECORD BLOOD GLUCOSE TESTING ORDERED AND TO REPORT ABNORMAL FINDINGS TO PHYSICIAN. RN/ELECTRO MECHANICAL TECHNOLOGIST/COMB FIXER MAY PERFORM BLOOD GLUCOSE TEST NEEDED. RN/ELECTRO MECHANICAL TECHNOLOGIST/COMB FIXER TO REPORT TO PHYSICIAN BLOOD GLUCOSE READINGS GREATER THAN 69 OR LESS THAN 50. RN/ELECTRO MECHANICAL TECHNOLOGIST/COMB FIXER TO INSTRUCT PATIENT ON IMPORTANCE OF HGBA1C MONITORING, KIDNEY FUNCTION TEST, EYE AND FOOT EXAMS. [code = DIABETES MANAGEMENT; RN TO ASSESS AND TEACH, ELECTRO MECHANICAL TECHNOLOGIST/COMB FIXER TO OBSERVE AND TEACH INSTRUCTIONS OF DIABETIC CARE TO INCLUDE: DIET SKIN CARE, SIGNS AND SYMPTOMS OF HYPO/HYPERGLYCEMIA, PROPER ADMINISTRATION OF DIABETIC MEDICATION. RN/ELECTRO MECHANICAL TECHNOLOGIST/COMB FIXER TO INSTRUCT ON DIABETIC FOOT CARE AND MONITOR FOR SKIN LESIONS ON LOWER EXTREMITIES. BLOOD GLUCOSE TESTING DAILY FREQ. RN TO ASSESS AND TEACH, ELECTRO MECHANICAL TECHNOLOGIST/COMB FIXER TO OBSERVE AND TEACH PATIENT/CAREGIVER ABILITY TO PERFORM AND RECORD BLOOD GLUCOSE TESTING ORDERED AND TO REPORT ABNORMAL FINDINGS TO PHYSICIAN. RN/ELECTRO MECHANICAL TECHNOLOGIST/COMB FIXER MAY PERFORM BLOOD GLUCOSE TEST NEEDED. RN/ELECTRO MECHANICAL TECHNOLOGIST/COMB FIXER TO REPORT TO PHYSICIAN BLOOD GLUCOSE READINGS GREATER THAN 69 OR LESS THAN 50. RN/ELECTRO MECHANICAL TECHNOLOGIST/COMB FIXER TO INSTRUCT PATIENT ON IMPORTANCE OF HGBA1C MONITORING, KIDNEY FUNCTION TEST, EYE AND FOOT EXAMS.] Future Scheduled Test RN TO OBSE RVE, ASSESS, EVALUATE, AND DEVELOP AN INDIVIDUALIZED PLAN OF CARE. AGENCY MAY ACCEPT ORDERS FROM CONSULTING PHYSICIANS. RN TO OBSERVE AND ASSESS, COMB FIXER/ELECTRO MECHANICAL TECHNOLOGIST TO OBSERVE FOR RISK FOR FALLS AND INSTRUCT IN FALL PREVENTION, HOME SAFETY, MEDICATION MANAGEMENT, INFECTION PREVENTION, AND NUTRITION MANAGEMENT. RN/COMB FIXER/ELECTRO MECHANICAL TECHNOLOGIST NURSE MAY PERFORM O2 SATURATION LEVEL ON ADMISSION AND PRN FOR RN TO ASSESS/COMB FIXER TO OBSERVE PATIENT, WITH NOTIFICATION TO THE PHYSICIAN IF SATURATION IS 90% IN THE ABSENCE OF MORE SPECIFIC PARAMETERS FROM THE PHYSICIAN. AGENCY MAY PERFORM A RESUMPTION OF CARE VISIT FOLLOWING ANY HOSPITAL ADMISSION. RN/COMB FIXER/ELECTRO MECHANICAL TECHNOLOGIST TO MONITOR CO-MORBID CONDITIONS LISTED ON THE PLAN OF CARE AND ANY NEW CONDITIONS THAT PRESENT THEMSELVES DURING THIS EPISODE TO IDENTIFY CHANGES AND INTERVENE TO MINIMIZE COMPLICATIONS. [code = RN TO OBSERVE, ASSESS, EVALUATE, AND DEVELOP AN INDIVIDUALIZED PLAN OF CARE. AGENCY MAY ACCEPT ORDERS FROM CONSULTING PHYSICIANS. RN TO OBSERVE AND ASSESS, COMB FIXER/ELECTRO MECHANICAL TECHNOLOGIST TO OBSERVE FOR RISK FOR FALLS AND INSTRUCT IN FALL PREVENTION, HOME SAFETY, MEDICATION MANAGEMENT, INFECTION PREVENTION, AND NUTRITION MANAGEMENT. RN/COMB FIXER/ELECTRO MECHANICAL TECHNOLOGIST NURSE MAY PERFORM O2 SATURATION LEVEL ON ADMISSION AND PRN FOR RN TO ASSESS/COMB FIXER TO OBSERVE PATIENT, WITH NOTIFICATION TO THE PHYSICIAN IF SATURATION IS 90% IN THE ABSENCE OF MORE SPECIFIC PARAMETERS FROM THE PHYSICIAN. AGENCY MAY PERFORM A RESUMPTION OF CARE VISIT FOLLOWING ANY HOSPITAL ADMISSION. RN/COMB FIXER/ELECTRO MECHANICAL TECHNOLOGIST TO MONITOR CO-MORBID CONDITIONS LISTED ON THE PLAN OF CARE AND ANY NEW CONDITIONS THAT PRESENT THEMSELVES DURING THIS EPISODE TO IDENTIFY CHANGES AND INTERVENE TO MINIMIZE COMPLICATIONS.] Future Scheduled Test GASTROINTE STINAL MANAGEMENT; RN TO ASSESS AND TEACH, ELECTRO MECHANICAL TECHNOLOGIST/COMB FIXER TO OBSERVE AND TEACH RELATED TO ALTERED GASTROINTESTINAL STATUS TO MINIMIZE COMPLICATIONS AND REDUCE HOSPITALIZATION. [code = GASTROINTESTINAL MANAGEMENT; RN TO ASSESS AND TEACH, ELECTRO MECHANICAL TECHNOLOGIST/COMB FIXER TO OBSERVE AND TEACH RELATED TO ALTERED GASTROINTESTINAL STATUS TO MINIMIZE COMPLICATIONS AND REDUCE HOSPITALIZATION.] Future Scheduled Test DEMENTIA M ANAGEMENT WITHOUT BEHAVIORAL DISTURBANCES; RN TO ASSESS AND TEACH, ELECTRO MECHANICAL TECHNOLOGIST/COMB FIXER TO OBSERVE AND TEACH AND TO PROVIDE EDUCATION ON DEMENTIA WITHOUT BEHAVIORAL DISTURBANCES. [code = DEMENTIA MANAGEMENT WITHOUT BEHAVIORAL DISTURBANCES; RN TO ASSESS AND TEACH, ELECTRO MECHANICAL TECHNOLOGIST/COMB FIXER TO OBSERVE AND TEACH AND TO PROVIDE EDUCATION ON DEMENTIA WITHOUT BEHAVIORAL DISTURBANCES.] Future Scheduled Test PAIN MANAG EMENT; RN TO ASSESS AND TEACH, ELECTRO MECHANICAL TECHNOLOGIST/COMB FIXER TO OBSERVE AND TEACH AND PROVIDE EDUCATION ON PAIN MANAGEMENT TECHNIQUES. [code = PAIN MANAGEMENT; RN TO ASSESS AND TEACH, ELECTRO MECHANICAL TECHNOLOGIST/COMB FIXER TO OBSERVE AND TEACH AND PROVIDE EDUCATION ON PAIN MANAGEMENT TECHNIQUES.] Future Scheduled Test RISK FOR H OSPITALIZATION; RN TO ASSESS/TEACH, ELECTRO MECHANICAL TECHNOLOGIST/COMB FIXER TO OBSERVE/TEACH PATIENT/CAREGIVER ON RISK FOR HOSPITALIZATION/EMERGENCY ROOM VISITS, TEACH SIGNS AND SYMPTOMS THAT PUT PATIENT AT RISK, WHEN TO NOTIFY NURSE/PHYSICIAN OF COMPLICATIONS/DECLINE, AND WHEN TO CALL 911. [code = RISK FOR HOSPITALIZATION; RN TO ASSESS/TEACH, ELECTRO MECHANICAL TECHNOLOGIST/COMB FIXER TO OBSERVE/TEACH PATIENT/CAREGIVER ON RISK FOR HOSPITALIZATION/EMERGENCY ROOM VISITS, TEACH SIGNS AND SYMPTOMS THAT PUT PATIENT AT RISK, WHEN TO NOTIFY NURSE/PHYSICIAN OF COMPLICATIONS/DECLINE, AND WHEN TO CALL 911.] Future Scheduled Test MEDICATION MANAGEMENT; RN/COMB FIXER/ELECTRO MECHANICAL TECHNOLOGIST TO REVIEW MEDICATIONS FOR INTERACTIONS, EFFECTIVENESS OF DRUG THERAPY, AND SIGNS/SYMPTOMS OF ADVERSE REACTIONS. MAY INSTRUCT AND REINFORCE MEDICATION TEACHING RELATED TO THE USE OF MEDICATIONS, DOSAGE, FREQUENCY, PURPOSE, SIDE EFFECTS, AND TO REPORT COMPLICATIONS. [code = MEDICATION MANAGEMENT; RN/COMB FIXER/ELECTRO MECHANICAL TECHNOLOGIST TO REVIEW MEDICATIONS FOR INTERACTIONS, EFFECTIVENESS OF DRUG THERAPY, AND SIGNS/SYMPTOMS OF ADVERSE REACTIONS. MAY INSTRUCT AND REINFORCE MEDICATION TEACHING RELATED TO THE USE OF MEDICATIONS, DOSAGE, FREQUENCY, PURPOSE, SIDE EFFECTS, AND TO REPORT COMPLICATIONS.] Goal Patient Goal - G ET BLOOD SUGARS UNDER CONTROL. Goal Provider Goal - PATIENT/CAREGIVER WILL VERBALIZE/DEMONSTRATE UNDERSTANDING OF FALL RISK FACTORS AND IMPLEMENT STRATEGIES TO MINIMIZE FALL RISK. PATIENT/CAREGIVER WILL VERBALIZE/DEMONSTRATE AN ABILITY TO ADHERE TO FALL REDUCTION SELF-MANAGEMENT AND LIFE-STYLE CHANGES BY END OF EPISODE Goal Provider Goal - PATIENT / CAREGIVER WILL VERBALIZE / DEMONSTRATE AN ABILITY TO ADHERE TO SELF-MANAGEMENT OF DIABETES MANAGEMENT BY END OF EPISODE Goal Provider Goal - A PLAN OF CARE WILL BE ESTABLISHED THAT MEETS THE PATIENT S NEEDS. PATIENT WILL DEMONSTRATE OXYGEN SATURATION WITHIN NORMAL LIMITS OR PATIENT S OPTIMAL LEVEL ESTABLISHED BY THE PHYSICIAN THROUGHOUT CARE. CHANGES TO CO-MORBID CONDITIONS AND ANY NEW CONDITIONS WILL BE IDENTIFIED AND REPORTED TO THE PHYSICIAN. Goal Provider Goal - PATIENT / CAREGIVER WILL VERBALIZE/DEMONSTRATE UNDERSTANDING OF MEASURES TO MANAGE ALTERED GASTROINTESTINAL STATUS BY END OF EPISODE. Goal Provider Goal - FAMILY / CAREGIVERS WILL VERBALIZE/DEMONSTRATE DEMENTIA MANAGEMENT TECHNIQUES BY END OF EPISODE. Goal Provider Goal - PATIENT / CAREGIVER WILL VERBALIZE / DEMONSTRATE UNDERSTANDING OF PAIN CONTROL MEASURES BY END OF EPISODE Goal Provider Goal - PATIENT/CAREGIVER WILL VERBALIZE UNDERSTANDING OF SIGNS AND SYMPTOMS THAT PUT THE PATIENT AT RISK FOR HOSPITALIZATION /EMERGENCY ROOM VISITS, WHEN TO NOTIFY NURSE/PHYSICIAN OF COMPLICATIONS/DECLINE AND WHEN TO CALL 911. Goal Provider Goal - PATIENT/CAREGIVER TO VERBALIZE, AND CONSISTENTLY DEMONSTRATE EFFECTIVE, SAFE MANAGEMENT OF MEDICATION INCLUDING KNOWLEDGE OF EFFECTIVENESS, POTENTIAL SIDE EFFECTS AND DRUG REACTIONS AND WHEN TO CONTACT THE APPROPRIATE CARE PROVIDER. PATIENT/CAREGIVER WILL BE ABLE TO VERBALIZE UNDERSTANDING OF MEDICATION REGIMEN AND ACCURATELY TAKE MEDICATIONS PRESCRIBED WITHOUT ADVERSE EFFECTS BY END OF EPISODE Encounters Start Date/Time End Date/Time Encounter Type Admission Type Attending [facility] Care Facility Care Department Encounter ID Discharge Date Discharge Status Discharge Condition Discharge Reason Percent Goals Met 2024-12-13 00:00:00 2025-02-10 00:00:00 Outpatient NEW ADMISSION SAHIL SHEARER [facility] [id number] [id number]
== END 2024-12-28 07:04 | disposition home or self-care (01) ==
PROVIDERS: Emergency Provider Emergency Medicine; PCP Internal Medicine
DX: N39.0 Urinary tract infection, site not specified (principal); R19.7 Diarrhea, unspecified; E11.22 Type 2 diabetes mellitus with diabetic chronic kidney disease; N18.9 Chronic kidney disease, unspecified; F03.90 Unspecified dementia, unspecified severity, without behavioral disturbance, psychotic disturbance, mood disturbance, and anxiety; Z79.899 Other long term (current) drug therapy
CPT/HCPCS: 36415; 80048; 80076; 83690; 83735; 85025; 96361; 96365; 99284; J0696; J7120

== ENCOUNTER 2025-01-03 10:02 | Outpatient (AMB) | payer MEDICARE, SELFPAY ==
--- NOTE | 2025-01-03 10:14 | MHC.OFFVIS ---
Intake Visit Reasons: BPH with LUTS Intake Note: New Patient is present for BPH w/ LUTS Urology Rx:none PVR:83 mls Blood Thinners:none Imaging completed: Abd CT 12/08/2024 Ultrasonic Cleaner Required: Yes Ultrasonic Cleaner Language: Canadian Accompanied by: Son/ spouse Allergies No Known Allergies Allergy (Verified 01/03/25 10:15) HPI Comments Details: Curtis is a pleasant Canadian-speaking male. He is a patient of Dr. Guan. He seen for the following urologic conditions - lower urinary tract symptoms Polyuria and dysuria are primarily symptoms for uncontrolled diabetes No role for BPH medications at this point in time Return to primary care Willing to reassess once HbA1c in the 8 range Can review in six-month PVR 80 cc - effective bladder emptying Lower urinary tract symptoms Recent HbA1c 11.6 Aggressive diabetes management would be 1st step to addressing polyuria Background of dementia interferes with urgency and frequent PFSH Medical History Dementia Diabetes mellitus type 2, controlled, without complications Hypertension associated with chronic kidney disease due to type 2 diabetes mellitus Social History Household Members: Family Housing: House Do you presently have visiting nurse or other home services: No Comment: family at bedside. Patient Tobacco Use Status: Former Tobacco user Advance Directives Date on File: 12/13/24 service: No Review of Systems Const Denies chills and Denies fever(s) Card Reports no additional complaints and Denies syncope Resp Denies cough GI Denies abdominal pain and Denies heartburn Reports as per HPI and Denies change in libido Neuro Denies syncope Psych Denies change in libido Endo Denies change in libido Physical Exam Const General: cooperative, healthy appearing, comfortable and no acute distress Orientation/consciousness: patient oriented x3 HEENT Face and sinus: Yes normal facial exam Mouth: moist mucous membranes Neck Neck: Yes normal visual inspection, Yes full ROM and Yes trachea midline Chest Chest palpation & inspection: normal inspection of the chest Resp Effort & Inspection: normal respiratory effort, able to speak in complete sentences and no respiratory distress GI Inspection: Yes normal to inspection Back/Spine/Pelvis Cervical Spine: normal cervical lordosis Thoracic/Lumbar Spine: thoracic and lumbar spine normal to inspection Skin General skin exam: no rashes or lesions noted Neuro General: patient oriented x3, gait normal, tone normal and moves all extremities Extrem General: Yes normal to inspection and Yes capillary refill normal Office Procedures Post Void Residual Post Residual Void Post Void Residual (PVR): 83 [id number] Void Residual by ultrasound Assessment & Plan Assessment & Plan (1) Urinary urgency: Code(s): R39.15 - Urgency of urination Category: Medical Plan Six-month follow-up office Patient Instructions: This note is constructed using voice recognition software. While every effort has been made to ensure accuracy sewer pipe layer errors may have been included. Imaging studies, laboratory and physical exam results were discussed and reviewed in detail. No major barriers to patient understanding were identified. An opportunity to ask questions regarding the treatment plan was provided. All questions were answered. The patient expressed understanding and agreement with the above treatment plan. The patient is aware they should contact our office by phone for worsening of their current condition or the appearance of new urologic symptoms. Compliance is encouraged with any medications and followup testing that is ordered. It is a privilege to participate in the urologic care of your patient. If you have any questions or concerns regarding treatment for the above conditions, or other urologic issues, please do not hesitate to contact me. The office telephone contact is [phone]. Sincerely, Dr Adelso Velasquez MD, [facility] - Urology Compassionate Specialist Care for the Genitourinary System Coding Level of Care Code New Pt Level 3 (67805) Diagnoses Urinary urgency R39.15 CPT Codes Post Residual Void - PVR CPT Code: 79512-Guol Void Residual by ultrasound ([id number])
--- OUTSIDE RECORDS SUMMARY | 2025-01-03 11:35 | XMS_ITS | Clinical Summary ---
Author Organization [facility] Address [address] [place] [address] Phone Care Team Providers Care Medical Billing Specialist Name Role Phone Physician, No Pcp Primary Care Provider Unavaila ble Allergies No known active allergies Medications traZODone (DESYREL) 50 mg tablet Take 1 tablet (50 mg total) by mouth at bedtime. 30 each 10/16/2024 Active Active Problems No known active problems Encounters Date Type Department Care Team Description 10/15/2024 9:13 PM EDT - 10/16/2024 3:[address] [facility] Emergency [address] [place] [address] Kenton Ortiz MD Acute cystitis without hematuria (Primary Dx); Balanitis; Controlled type 2 diabetes mellitus with hyperglycemia, with long-term current use of insulin ([facility] V24, [facility] V28) Discharge Disposition: Home or Self [...] UNSOLICITED RESULTS Final Result Performing Organization Address [facility] Co de Phone Number [facility] [address] [place] [address], [place] [phone] * (ABNORMAL) Lactate, with Reflex (10/15/2024 11:18 PM EDT) [facility] LACTIC ACID 2.3(H) 0.4 - 2.0 mmol/L LAB CHEMISTRY METHOD 10/15/2024 11:48 PM EDT [facility] Blood Venous blood specimen / Unknown Venipuncture / Unknown 10/15/2024 11:18 PM EDT 10/15/2024 11:25 PM EDT Kenton Ortiz MD LAB BLOOD ORDERABLES Connie l Result Performing Organization Address City/[facility]/ZIP Co de Phone Number [facility] [address] [place] [address], [place] [phone] * Blood Culture, Peripheral #2 (10/15/2024 11:18 [...] MICROBIOLOGY - GENERA L ORDERABLES Final Result [facility] [address] [place] [address], [place] [phone] * (ABNORMAL) Urinalysis with reflex microscopic and culture (10/15/2024 6:30 PM EDT) Specific [place] Urine 1.039(H) 1.003 - 1.030 LAB URINALYSIS - AUTOMATED METHOD 10/15/2024 6:53 PM [facility] pH, Urine 5.5 5.0 - 8.0 pH LAB URINALYSIS - AUTOMATED METHOD 10/15/2024 6:53 PM [facility] Leukocytes, Urine Moderate(A) Negative LAB URINALYSIS - AUTOMATED METHOD 10/15/2024 6:53 PM [facility] Nitrite, Urine Negative Negative LAB URINALYSIS - AUTOMATED METHOD 10/15/2024 6:53 PM [facility] Protein, Urine 30(A) <=Trace mg/dL [...] 6:53 PM EDT [facility] Bilirubin, Urine Negative Negative LAB URINALYSIS - AUTOMATED METHOD 10/15/2024 6:53 PM EDT [facility] Blood, Urine Trace(A) Negative LAB URINALYSIS - AUTOMATED METHOD 10/15/2024 6:53 PM EDT [facility] RBC, Urine 2.2 0 - 4 /HPF LAB URINALYSIS - AUTOMATED METHOD 10/15/2024 6:53 PM EDT [facility] WBC, Urine 223.5(H) 0 - 4 /HPF LAB URINALYSIS - AUTOMATED METHOD 10/15/2024 6:53 PM EDT [facility] Squamous Epithelial, Urine 19 0 - 60 /LPF LAB URINALYSIS - AUTOMATED METHOD 10/15/2024 6:53 PM [facility] Bacteria, Urine Moderate(A) Negative /HPF LAB URINALYSIS - AUTOMATED METHOD [facility] Hyaline Casts, Urine 0.4 0 - 3 /LPF LAB URINALYSIS - AUTOMATED METHOD 10/15[facility]2024 6[facility] Urine Urine specimen obtained by clean catch procedure / Unknown Non-blood Collection / Unknown 10/15/2024 6:30 PM EDT 10/15/2024 6:40 PM EDT us Perla CHERRY LAB URINE ORDERABLES Fin al Result [facility] [address] [place] [address], * Couch urine culture tube (10/15/2024 6:30 PM EDT) Extra Tube Hold for add-ons. 10/15/2024 8:01 PM EDT [facility] Comment:Auto resulted. Urine Urine specimen obtained by clean catch procedure / Unknown Non-blood Collection / Unknown 10/15/2024 6:30 PM EDT 10/15/2024 6:40 PM EDT Perla CHERRY LAB URINE ORDERABLES Fin al Result [facility] [address] [place] [address], [place] [phone] * Culture urine (10/15/2024 6:30 PM EDT) Pathologist [facility] [place] Culture, Urine >100,000 CFU/mL Mixed urogenital peter, no uropathogens present. Suggest repeat specimen if clinically indicated. 10/17/2024 10:33 AM EDT [facility] Urine Urine specimen obtained by clean catch procedure / Unknown Non-blood Collection / Unknown 10/15/2024 6:30 PM EDT 10/15/2024 6:53 PM EDT Perla CHERRY LAB MICROBIOLOGY - GENER AL ORDERABLES Final Result Performing Organization Address [facility]/ZIP Co de Phone Number [facility] [address] [place] [address], [place] [phone] * (ABNORMAL) CBC auto differential (10/15/2024 6:01 PM EDT) WBC 7.6 4.8 - 10.8 K/mcL LAB HEMETOLOGY METHOD 10/15/2024 6:41 PM EDT [facility] RBC 5.10 4.50 - 5.50 M/mcL LAB HEMETOLOGY METHOD 10/15/2024 6:41 PM EDT [facility] Hemoglobin 14.5 13.5 - 17.5 g/dL LAB HEMETOLOGY METHOD 10/15/2024 6:41 PM EDT [facility] Hematocrit 44.9 42.0 - 54.0 % LAB HEMETOLOGY METHOD 10/15/2024 6:41 PM EDT [facility] MCV 88.2 79.0 - 98.0 FL LAB HEMETOLOGY METHOD [facility]2024 [facility] MCH 28.5 27.0 - 32.0 pcg LAB HEMETOLOGY METHOD 10/15/2024 6:41 PM [facility] MCHC 32.3 32.0 - 37.0 g/dL LAB HEMETOLOGY METHOD 10/15/2024 6:41 PM T [facility] RDW 12.6 11.0 - 15.0 % LAB HEMETOLOGY METHOD 10/15/2024 6:41 PM [facility] Platelets 231 130 - 400 K/mcL LAB HEMETOLOGY METHOD 10/15/2024 6:41 PM [facility] MPV 12.0(H) 7.0 - 11.0 FL LAB HEMETOLOGY METHOD 10/15/2024 6:41 PM [facility] NRBC 0.0 <1.0 % LAB HEMETOLOGY METHOD 10/15[facility]2024 6[facility] NRBC Absolute 0.00 <0.10 K/mcL LAB HEMETOLOGY METHOD 10/15/2024 6:41 PM [facility] Neutrophils Relative 69.0 % LAB HEMETOLOGY METHOD 10/15/2024 6:41 PM [facility] Lymphocytes Relative 21.7 % LAB HEMETOLOGY METHOD [facility]2024 6[facility] Monocytes Relative 7.8 % LAB HEMETOLOGY METHOD 10/15/2024 6:41 PM [facility] Eosinophils Relative 0.9 % LAB HEMETOLOGY METHOD 10/15/2024 6:41 PM [facility] Basophils Relative 0.1 % LAB HEMETOLOGY METHOD 10/15/2024 6:41 PM EDT [facility] Immature Granulocytes Relative 0.5 % LAB HEMETOLOGY METHOD 10/15/2024 6:41 PM EDT [facility] Neutrophils Absolute 5.24 1.50 - 7.00 K/mcL LAB HEMETOLOGY METHOD 10/15/2024 6:41 PM EDT [facility] Lymphocytes Absolute 1.65 1.00 - 5.00 K/mcL LAB HEMETOLOGY METHOD 10/15/2024 6:41 PM EDT [facility] Monocytes Absolute 0.59 0.20 - 1.00 K/mcL LAB HEMETOLOGY METHOD 10/15/2024 6:41 PM EDT [facility] Eosinophils Absolute 0.07 0.00 - 0.50 K/mcL LAB HEMETOLOGY METHOD 10/15/2024 6:41 PM EDT [facility] Basophils Absolute 0.01 0.00 - 0.20 K/mcL LAB HEMETOLOGY METHOD 10/15/2024 6:41 PM EDT [facility] Immature Granulocytes Absolute 0.04(H) 0.00 - 0.03 K/mcL LAB HEMETOLOGY METHOD 10/15/2024 6:41 PM EDT [facility] Blood Venous blood specimen / Unknown Venipuncture / Unknown 10/15/2024 6:01 PM EDT 10/15/2024 6:33 PM EDT us Perla CHERRY LAB BLOOD ORDERABLES Fin al Result [facility] [address] [place] [address], * Alanine aminotransferase (10/15/2024 6:01 PM EDT) ALT (SGPT) 42 10 - 60 unit/L LAB CHEMISTRY METHOD 10/15/2024 9:53 PM EDT [facility] Blood Venous blood specimen / Unknown Venipuncture / Unknown 10/15/2024 6:01 PM EDT 10/15/2024 6:33 PM EDT Kenton Ortiz MD LAB BLOOD ORDERABLES Connie l Result Performing Organization Address [facility]/ZIP Co de Phone Number [facility] [address] [place] [address], [place] [phone] * Aspartate aminotransferase (10/15/2024 6:01 PM EDT) AST (SGOT) 27 10 - 42 unit/L LAB CHEMISTRY METHOD 10/15/2024 9:53 PM EDT [facility] Blood Venous blood specimen / Unknown Venipuncture / Unknown 10/15/2024 6:01 PM EDT 10/15/2024 6:33 PM EDT Kenton Ortiz MD LAB BLOOD ORDERABLES Connie l Result Performing Organization Address [facility]/ZIP Co de Phone Number [facility] [address] [place] [address], [place] [phone] * (ABNORMAL) Alkaline phosphatase (10/15/2024 6:01 PM EDT) Alkaline Phosphatase 122(H) 42 - 121 unit/L LAB CHEMISTRY METHOD 10/15/2024 9:53 PM EDT [facility] Blood Venous blood specimen / Unknown Venipuncture / Unknown 10/15/2024 6:01 PM EDT 10/15/2024 6:33 PM EDT Kenton Ortiz MD LAB BLOOD ORDERABLES Connie l Result Performing Organization Address City/[facility]/ZIP Co de Phone Number [facility] [address] [place] [address], [place] [phone] * (ABNORMAL) Magnesium (10/15/2024 6:01 PM EDT) Magnesium 1.8(L) 1.9 - 2.6 mg/dL LAB CHEMISTRY METHOD 10/15/2024 7:01 PM EDT [facility] Blood Venous blood specimen / Unknown Venipuncture / Unknown 10/15/2024 6:01 PM EDT 10/15/2024 6:33 PM EDT Perla CHERRY LAB BLOOD ORDERABLES Fin al Result [facility] [address] [place] [address], [place] [phone] * Bilirubin, total (10/15/2024 6:01 PM EDT) Pathologist [facility] [place] Total Bilirubin 1.3 0.0 - 1.4 mg/dL LAB CHEMISTRY METHOD 10/15/2024 9:52 PM EDT [facility] Blood Venous blood specimen / Unknown Venipuncture / Unknown 10/15/2024 6:01 PM EDT 10/15/2024 6:33 PM EDT Kenton Ortiz MD LAB BLOOD ORDERABLES Connie l Result [facility] [address] [place] [address], [place] [phone] * (ABNORMAL) Basic metabolic panel (10/15/2024 6:01 PM EDT) Sodium 138 133 - 145 mmol/L LAB CHEMISTRY METHOD 10/15/2024 7:11 PM EDT [facility] Potassium 4.5 3.5 - 5.5 mmol/L LAB CHEMISTRY METHOD 10/15/2024 7:11 PM EDT [facility] Chloride 105 96 - 110 mmol/L LAB CHEMISTRY METHOD 10/15/2024 7:11 PM EDT [facility] CO2 30 21 - 32 mmol/L LAB CHEMISTRY METHOD 10/15/2024 7:11 PM EDT [facility] Anion Gap 3 3 - 11 LAB CHEMISTRY METHOD 10/15/2024 7:11 PM [facility] Glucose 364(H) 70 - 100 mg/dL LAB CHEMISTRY METHOD [facility] BUN 27(H) 5 - 25 mg/dL LAB CHEMISTRY METHOD 10/15/2024 7:11 PM [facility] Creatinine 1.46(H) 0.70 - 1.30 mg/dL LAB CHEMISTRY METHOD [facility]2024 [facility] eGFR 49(L) >=60 mL/min/1. 73m2 LAB CHEMISTRY METHOD 10/15/2024 7:11 PM EDT [facility] Comment:Calculation based on the Chronic [...] CHERRY LAB BLOOD ORDERABLES Fin al Result [facility] [address] [place] [address], [place] [phone] from Last 3 Months Insurance MEDICARE MEDICAID - [place] Care Teams Medical Billing Specialist Relationship Specialty Start Date End Date Physician, No Pcp PCP - General 10/15/24
--- OUTSIDE RECORDS SUMMARY | 2025-01-03 11:35 | XMS_ITS | Data Portability ---
Author Organization [facility] Address [address] [place] [phone] Care Team Providers Care Classer Name Role Phone [facility] CARE TEAM OTHER INDRA HORVATH Primary Care Provider Assessment Encounter Date Assessment Date Assessment LastModified by Organization Details LastModified Time 11/13/2024 11/13/2024 I provided real -time medical direction via phone for this encounter and was available for additional phone-based assistance as needed. I have reviewed and agree with the Assessment and Plan as documented by the Lathe Turner. Patient given the opportunity to ask questions. Our service contacted for an assessment of: Urinary symptoms As per above, patient with approximately 24 hours of dysuria, frequency. No history of frequent urinary tract infections. Denies fever, chills, abdominal pain, back pain, flank pain. Per neurology nurse on the scene, Vital signs are stable and the patient is afebrile. Patient is nontoxic in appearance. UA is positive for leukocytes. Impression: Urinary symptoms, AMS and UTI Plan: Ltanha283 mg BID for 5 days. F/u urine [...] recorded. Lab urinalysis, dipstick 2024 025 [facility], [address] [place] [address], [phone] 13:53:59 culture, urine 2024 025 [place] [facility] (Centralized Electronic Ordering - All Locations), Patient Can Go To The Location Of Their Choice, [id number] 06:08:09 Referral None recorded. Procedures None recorded. Surgeries None recorded. Imaging None recorded. Medication Orders cephalexin 500 mg tablet 2024 025 [facility] #[id number], [address] [place], [address], 05:01:45 cephalexin 500 mg tablet 2024 025 [facility] #[id number], [address] [place], [address], 05:01:45 Patient TargetsNo targets recorded. Patient InstructionsNo instructions recorded. Reason for Referral None Reported. Results Created Date Observation Date Name Description Value Unit Range Abnormal Flag Note LastModifiedBy Organization Detail LastModifiedTime 11/14/1911/15/2024 URINE CULTU RE, UROLO GY LACEY P urine culture, urology workup Final report abnormal Not Available [facility] ([facility]) [address] [facility], [place], [address], 11/15/2024 18:05:47 11/14/1911/15/2024 URINE CULTU RE, UROLO [...] ng units per mL Not Available [facility] ([facility]) [address] [facility], [place], [address], 11/15/2024 18:05:47 11/14/19 25 11/15/2024 URINE CULTU [...] ng units per mL Not Available [facility] ([facility]) [address] [facility], [place], [address], 11/15/2024 18:05:47 11/14/19 25 11/15/2024 URINE CULTU [...] im/Alcaraz lfa S S Not Available [facility] ([facility]) [address] [facility], [place], [address], 11/15/2024 18:05:47 Result Notes None recorded. Medical [...] ICD10 Code Diagnosis IMO Codes Diagnosis Note [id number] Amaya Angel MD [facility] ED [facility] [address] [place] [address] 11/13/2024 12:50:11 11/13/2024 17:40:57 Urinary system finding [id number] R39.9 [id number] Health Concerns Section Related Observation LastModified by Organization Detai ls LastModified Time None Recorded Concern Status LastModified by Organization Details LastModified Time None Recorded Advance Directives Directive None Recorded Payers Insurance Date Sequence Insurance Name Policy Number Policy Blank Covered Member ID Blank Member ID Guarantor Name 11/13/2024 1 [facility] - MEDICARE PREFERRED (MEDICARE REPLACEMENT HMO) SCOIND Curtis Owusu [id number] Curtis Calderon Owusu Notes Date Note [...] signs of when to seek emergency care. Lathe Turner Organization Information for Natan Pat Carrillo CHELSEA [employer] Legal Name: [employer]. Address: [address] [place] [id number], Network Communications Engineer: Watson ZHU No.: [id number] Lathe Turner POC Test Results from Natan Pat Urine Dipstick (12:47:52) Urine leukocytes: 125++REESE Urine nitrites: +NIT Urine urobilinogen: -URO Urine protein: -PRO Urine pH: 5pH Urine blood: 5-10BLO Urine specific gravity: 1.015SG Urine ketones: 2++KET Urine bilirubin: -MEAGHAN Urine glucose: 500+GLU ................... ................... ................... ................... ................... ................... ................... ........ Lathe Turner Note From Natan Pat: Dispatched to the [...] to Pts portal. Sample obtained for lab. [facility] consulted. POC Blood glucose check. Pt given 500mg PO Keflex after confirming medication rights. Script called into preferred pharmacy. Red flags discussed. ALL times are approx. [facility] Lab Orders: urinalysis, dipstick: Performed culture, urine: Performed [facility] Medication Orders: cephalexin 500 mg tablet: Performed ................... ................... ................... ................... ................... ................... ................... ........ [facility] Consulted: Amaya Angel ................... ................... ................... ................... ................... ................... ................... ........ Disposition: Fulfilled Amaya Angel MD [address] [facility],[address], [place], [address], EZEQUIEL VIVAS 11/13/2024 13:48:01
== END 2025-01-03 10:43 | disposition home or self-care (01) ==
LOC: HO.HUSH 10:03
PROVIDERS: PCP Internal Medicine; Visit Provider Urology
DX: R39.15 Urgency of urination (principal)
CPT/HCPCS: 99203

== ENCOUNTER → 2025-01-03 10:02 | Outpatient (BNVA) | payer MEDICARE, SELFPAY | PROVIDERS: PCP Internal Medicine; Visit Provider Urology | DX: R39.15 Urgency of urination (principal) | CPT/HCPCS: 51798; 99202 ==